=== PATIENT | male | born 1960 | race Caucasian/White ===

== ENCOUNTER → 2017-09-20 09:33 | Outpatient (CLI) | payer MEDICAID, SELFPAY ==
--- NOTE | 2017-09-20 09:37 | EKG12_ITS ---
Test Reason : PALPITATIONS Blood Pressure : / mmHG Vent. Rate : 062 BPM Atrial Rate : 062 BPM P-R Int : 156 ms QRS Dur : 092 ms QT Int : 434 ms P-R-T Axes : 033 040 079 degrees QTc Int : 440 ms Sinus rhythm with frequent Premature ventricular complexes Otherwise normal ECG Confirmed by AILYN WATSON ([id number]), content editor FAWN CERDA ([id number] on 09/23/2017 2:52:09 PM Referred By: [facility] Confirmed By:AILYN WATSON
== END ==
DX: R00.2 Palpitations (principal)
CPT/HCPCS: 93005

== ENCOUNTER 2018-08-25 10:48 | Emergency (ER) | payer MEDICAID, SELFPAY ==
[2018-08-25 10:49] VITALS: BP 128/69; PULSE 65; RESP 16; TEMP 36.9; O2SAT 99; BMI 27.9
--- NOTE | 2018-08-25 11:15 | ED.DCSUM_ITS ---
- ER Visit Summary Date of Service: 08/25/18 Chief Complaint: Back pain History of Present Illness: The patient is a 57 M with back pain since yesterday after helping someone into a car. It is worse when he moves especially when he bends he has sharp shooting pain left side of the back. No bowel or bladder compromise no urinary retention symptoms no other known injury. Physical Examination: Otherwise normal exam he has left paraspinal tenderness, worse with twisting and bending. He has equal 1+ patellar reflexes. Normal plantarflexion and dorsiflexion of both feet and great toes bilaterally. Neurologically intact otherwise. Negative straight leg test. Emergency Department Course and Treatment: Patient will be treated symptomatically he will follow-up with PCP Disposition: Discharge stable condition Impression: Back pain This note was generated with [employer] dictation software. It may contain incorrect words, spelling, and punctuation that were not noted in review of the chart prior to signing ED Disposition - Plan for ED Patient: Disposition: Home or Assisted Living Instructions: ED Low Back Pain Injury Prescriptions: Naproxen [Naprosyn] 500 mg PO BID PRN #20 tab Prednisone [Deltasone] 40 mg PO DAILY #8 tab Cyclobenzaprine [Flexeril] 10 mg PO TID PRN #20 tab PRN Reason: Muscle Spasm Referrals: Judy Russo [Primary Care Provider] - 3-5 Days
== END 2018-08-25 12:25 | disposition home or self-care (01) ==
LOC: ED 11:49
PROVIDERS: Emergency Provider Emergency Medicine
DX: M54.9 Dorsalgia, unspecified (principal); I10 Essential (primary) hypertension; E78.00 Pure hypercholesterolemia, unspecified; I25.10 Atherosclerotic heart disease of native coronary artery without angina pectoris
CPT/HCPCS: 99282

== ENCOUNTER 2019-01-13 14:56 | Emergency (ER) | payer MEDICAID, SELFPAY ==
[2019-01-13 14:58] VITALS: BP 154/86; PULSE 59; RESP 16; TEMP 36.9; O2SAT 100; BMI 27.9
[2019-01-13] MEDS: BACITRACIN 15 GM Tube 1 APPLIC TOPICAL (16:24)
--- NOTE | 2019-01-13 16:30 | ED.DCSUM_ITS ---
History of Present Illness Chief Complaint: Laceration Informant: Patient Onset: Today Context: Sudden Onset Narrative: She is a 58-year-old male with history of coronary artery disease and [place] presented with laceration to his right hand. Patient states he was removing tile from a\when he actually cut himself with the crowbar that he was using. He sustained a laceration between his first and second fingers. He denies any other complaints or injuries at this time. His last tetanus was in 2016. 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 Past Medical History - Allergies and Home Meds Allergies/Adverse Reactions: Allergies peanut Allergy (Verified 01/13/19 14:57) Anaphylaxis Primary Care Physician: Judy Russo [Primary Care Provider] - Smoking Status: Never smoker Review of Systems Skin: Reports: Wounds - right hand laceration Physical Exam Vital Signs/Narrative: Vital Signs Temp Pulse Resp BP Pulse Ox 01/13/19 14:58 98.4 F 59 L 16 154/86 H 100 Inital Vital Signs reviewed: Yes General: Well nourished, Well developed, No Acute Distress Head: Normocephalic, Atraumatic Eyes: Perrl, EOMI ENT: Moist mucous membranes, No rhinorrhea Neck: Supple, Nontender Cardiovascular: Regular rate, Regular rhythm, No murmurs Respiratory: No distress, CTA bilaterally, Chest nontender Abdomen: Soft, Nontender, Nondistended, Normal bowel sounds Back: Nontender, Normal Inspection Extremities: Nontender, No edema Skin: Normal color, Trauma - 2 cm linear laceration in the webspace between the right first and second digits, full-thickness, no foreign body visualized Neurological: Alert, Oriented x3, Cranial nerves II-XII grossly intact, Normal Strength, Normal Sensation Psychological: Normal affect, Normal Mood Diagnostic/Tx/Re-eval - Medical Decision Making Wooten has laceration to his right hand. Tetanus is up-to-date. No concern for foreign body at this time. Laceration repair performed. Patient started to follow-up with his PCP and in approximately 10 days for wound reevaluation and suture removal. Patient is counseled on signs and symptoms requiring return to the emergency room. Patient verbalizes agreement and understand this plan. Patient discharged home in stable and improved condition. Procedures - Lacerations No standard instances Length: 0.79 in Depth: Skin Shape: Linear Prep: Sterile Conditions, Chlorhexadine Laceration repair: Irrigated, Lidocaine with epi, Local, Skin sutures Irrigated (ml): 500 - running water x 5 min Number of Sutures/Trace: 4 Suture Information: Ethilon, 4-0 ED Disposition - Plan for ED Patient: Disposition: Home or Assisted Living Diagnosis: Laceration of right hand Instructions: LACERATION, Hand Referrals: Judy Russo [Primary Care Provider] - Additional Instructions: Try to keep the wound clean and dry. Apply bacitracin ointment to it. Follow- up in 10 days for suture removal and wound reevaluation. Return if you develop any signs of infection or worsening symptoms.
== END 2019-01-13 17:32 | disposition home or self-care (01) ==
PROVIDERS: Emergency Provider Emergency Medicine
DX: S61.411A Laceration without foreign body of right hand, initial encounter (principal); W26.8XXA Contact with other sharp object(s), not elsewhere classified, initial encounter; Y93.89 Activity, other specified; I25.10 Atherosclerotic heart disease of native coronary artery without angina pectoris; I25.2 Old myocardial infarction; Z79.82 Long term (current) use of aspirin; Z79.899 Other long term (current) drug therapy
CPT/HCPCS: 12001; 99283

== ENCOUNTER → 2019-09-10 | Outpatient (CLI) | payer MEDICAID, SELFPAY ==
--- NOTE | 2019-09-10 14:09 | RAD_ITS ---
STUDY: X-RAY - RIGHT WRIST REASON FOR EXAM: Wrist pain and immobility. TECHNIQUE: 3 view(s) of the wrist were obtained. COMPARISON: Radiographs of the right hand 04/06/2017. FINDINGS: Normal visualized distal radius and ulna. Normal radiocarpal articulation. Normal distal radioulnar articulation. There is a cyst in the mid scaphoid. There is irregularity of the dorsal aspect of the carpus as on the prior study, possibly from remote avulsive injury. There is severe joint space narrowing of the lunate-capitate articulation similar to the prior study. Normal carpometacarpal articulation of the thumb. Normal second through fifth carpometacarpal articulations. Normal visualized metacarpal bones. There are surgical clips at the palmar radial aspect of the distal radius. RAD/Wrist min 3 Views IMPRESSION: Arthrosis of the lunate-capitate articulation. Cyst in the scaphoid. Irregularity of the dorsal aspect of the carpus as on the prior study, possibly from remote avulsive injury. Electronically Signed: Rj Edmonds MD at 10:18 EDT Tel , Service support ,
== END | disposition home or self-care (01) ==
LOC: HPRAD 14:09
PROVIDERS: Referring Provider Orthopaedic Surgery; Visit Provider Orthopaedic Surgery
DX: M25.531 Pain in right wrist (principal)
CPT/HCPCS: 73110

== ENCOUNTER → 2019-09-25 08:29 | Outpatient (CLI) | payer MEDICAID, SELFPAY ==
[2019-09-25 08:25] VITALS: BMI 27.9
--- NOTE | 2019-09-25 08:29 | RAD_ITS ---
STUDY: X-RAY - LEFT SHOULDER REASON FOR EXAM: Male, 58 years old. PAIN IN LEFT SHOULDER. NO KNOWN RECENT INJURY PER PATIENT. TECHNIQUE: 3 view(s) of the shoulder. COMPARISON: None. FINDINGS: There is mild degenerative arthrosis of the glenohumeral articulation. There is degenerative arthrosis of the acromioclavicular joint without inferior osseous spur formation. Normal acromion. There are healed left rib fractures. There are sternotomy wires. Normal humeral head and visualized proximal humerus. The soft tissue structures are unremarkable. Normal visualized pulmonary apex. RAD/Shoulder min 2 Views IMPRESSION: Degenerative change. Electronically Signed: Lenin Antoine MD at 15:18 EDT , Service support ,
== END ==
PROVIDERS: Referring Provider Orthopaedic Surgery; Visit Provider Orthopaedic Surgery
DX: M25.512 Pain in left shoulder (principal)
CPT/HCPCS: 73030

== ENCOUNTER 2019-12-09 19:44 | Emergency (ER) | payer MEDICAID, SELFPAY ==
[2019-09-25 08:25] VITALS: BMI 27.9
[2019-12-09 19:45] VITALS: BP 154/100; PULSE 68; RESP 16; TEMP 35.7; O2SAT 100; BMI 26.2
--- NOTE | 2019-12-09 20:01 | CT_ITS ---
STUDY: CT ABDOMEN AND PELVIS WITHOUT CONTRAST REASON FOR EXAM: Male, 59 years old. LEFT FLANK PAIN. RADIATION DOSAGE (If Supplied By Facility): CTDIvol = ( 9.93 ) mGy, DLP = ( 491.35 ) mGycm TECHNIQUE: Transaxial images were obtained from the dome of the diaphragm to the symphysis pubis without oral contrast, and without intravenous contrast. Sagittal and coronal images were reconstructed. Individualized dose optimization techniques were used for this CT. COMPARISON: None. FINDINGS: The visualized lung bases are unremarkable. The visualized portions of the heart are within normal limits. Normal liver. There is a solitary gallstone. Normal spleen. Normal pancreas. Normal bilateral adrenal glands. Normal right kidney. 3 mm distal left ureter calculus with mild associated obstructive uropathy. 2 mm nonobstructing left upper pole stone. Normal visualized stomach. Normal small intestine. Normal colon. The appendix is visualized and appears normal. There is diffuse atherosclerotic calcification of the abdominal aorta, without a demonstrated aneurysm. Normal inferior vena cava. Normal retroperitoneum. Normal urinary bladder. Normal visualized prostate gland. Normal abdominal wall. Normal osseous structures. CT/Abdomen/Pelvis without Cont IMPRESSION: 3 mm distal left ureter calculus with mild associated obstructive uropathy. Electronically Signed: Deandre Craft, at 21:05 EDT Tel , Service support ,
--- NOTE | 2019-12-09 20:02 | ED.DCSUM_ITS ---
- ER Visit Summary Date of Service: 12/09/19 Chief Complaint: [Flank pain] History of Present Illness: The patient is a 59 M [presents to the emergency department complaint of left-sided flank pain that started 4 days ago. Patient states the pains been off and on. At times the pain was severe today which caused him to become diaphoretic. Currently states the pain is much improved and only rates it about 1 out of 10. He states the pain radiated to the lower abdomen and into his left testicle. Patient thinks he is try to pass a kidney stone. Patient denies urinary symptoms. He denies fever. Denies blood in his urine. Patient has history of coronary artery disease, and hypertension. No prior history of kidney stones.] Physical Examination: [HEENT-PERRLA, EOMI. Cranial nerves II through XII grossly intact. TMs clear. Mucous membranes moist. No adenopathy. Cardiovascular-regular rate and rhythm without murmur or ectopy Lungs-clear to auscultation, chest wall stable without crepitus or subcu emphysema Abdomen-normoactive bowel sounds, soft, nontender, no rebound or rigidity, no peritoneal signs. Back exam-patient has some mild CVA tenderness on the left. No tenderness over the thoracic or lumbar spine. Negative straight leg raises. Deep tendon reflexes are plus 2 out of 4 bilaterally at the patella Achilles. Patient has normal L5 extension bilaterally. Extremities-intact ?4, normal range of motion, normal pulses, atraumatic] Test Results: [CBC with differential was normal. Chemistries unremarkable. Urinalysis showed 0-5 RBCs without signs of infection. CT flank showed a 3 mm stone at the left distal ureter.] Emergency Department Course and Treatment: [ Established on arrival. Patient did not want a thing for pain.] Treatment Plan: [We will be given urine strainers as well as a prescription for Naprosyn and [place] as well as Zofran.] Patient will be given referral to urology for follow-up. Patient advised to return if worsening pain, fever, vom iting, or condition should worsen anyway. Disposition: [Discharged home in stable condition] Impression: [Kidney stone with colic.] This note was generated with [employer] dictation software. It may contain incorrect words, spelling, and punctuation that were not noted in review of the chart prior to signing ED Disposition - Plan for ED Patient: Referrals: [facility],Judy Farr [Primary Care Provider] -
[2019-12-09 20:16] LABS: Bacteria 0 SEEN /hpf (None Seen); Squamous Epithelial Cells - UA 0 SEEN /hpf (0-5); White Blood Cells 0 SEEN /hpf (0-5)
[2019-12-09 20:19] LABS: Absolute Lymphocyte Count 3.34 X10^3/uL (0.83-4.51); Absolute Neutrophil Count 3.6 X10^3/uL (2.0-7.7); Basophil# 0.06 X10^3/uL; Basophil% 0.7 % (0-1); Eosinophil# 0.18 X10^3/uL; Eosinophils% 2.1 % (0-5); Hematocrit 40.9 % (40-54); Hemoglobin 13.7 g/dL (13.0-16.5); Lymphocyte # 3.34 X10^3/ul (4.0); Lymphocyte % 39.8 % (19-41); Mean Corp Hgb Conc 33.5 g/dL (32-36); Mean Corpuscular Hgb 31.4 pg (27.0-32.0); Mean Corpuscular Volume 93.8 fL (80-94); Mean Platelet Vol. 10.1 fl (6.2-12.0); Monocyte# 1.23 X10^3/uL; Monocyte% 14.7 % (0-10); NRBC Flagged by Analyzer 0 % (0-5); Neutrophil # 3.56 X10^3/uL (2.7-7.7); Neutrophil % 42.5 % (47-70); Platelet Count 229 K/mm3 (150-450); RBC Distribution Width CV 12.7 % (11.6-14.6); RBC Distribution Width SD 43.5 fl (35.1-43.9); Red Blood Count 4.36 M/mm3 (4.6-6.2); White Blood Count 8.4 K/mm3 (4.4-11.0)
[2019-12-09 20:22] LABS: Color, Urine Yellow (Yellow); Glucose, Dipstick Normal (Normal); Ketone-Dipstick 5 mg/dl (Negative); Leukocyte Esterase-Dipstick Negative /ul (Negative); Nitrite-Dipstick Negative (Negative); Occult Blood-Urine 10 /ul (Negative); Protein-Dipstick Negative (Negative); Urine Bilirubin Dipstick Negative (Negative); Urine Clarity Clear (Clear); Urine Urobilinogen Normal (Normal)
[2019-12-09] MEDS: 0.9% Normal Saline 1,000 ML 125 ML IV (20:24)
[2019-12-09 20:30] LABS: Mucous, Urine 1+ /hpf (<or=2+); Red Blood Cells-Urine 0-5 SEEN /hpf (0-5)
[2019-12-09 20:39] LABS: Anion Gap 5 (5-15); BUN 18 mg/dL (7-18); BUN/Creat Ratio 18.6 RATIO (10-20); Chloride 106 mmol/L (98-107); Creatinine, Serum 0.97 mg/dL (0.70-1.30); EST Glomerular Filtration Rate 84 mL/min (>60); Est Glom Filt Rate - Afr Amer 102 mL/min (>60); Estimated Creatinine Clearance 83.62 ml/min; Glucose 87 mg/dL (74-106); Potassium 3.4 mmol/L (3.5-5.1); Sodium Level 143 mmol/L (136-145)
--- NOTE | 2019-12-09 21:26 | ED.DEP ---
ED Disposition - Plan for ED Patient: Instructions: ED Renal Stone w Colic Prescriptions: Naproxen [Naprosyn] 500 mg PO BID PRN #20 tab Prescription Printed Hydrocodone Bitart/Apap 5-325 [[place] 5MG-325MG] 1 tab PO Q4H PRN PRN 2 Days #14 tab PRN Reason: Pain Prescription Printed Ondansetron [Zofran Odt] 4 mg PO Q8H PRN PRN #10 tab PRN Reason: Nausea Prescription Printed Referrals: [facility],Judy Farr [Primary Care Provider] - Dion Orellana MD [STAFF PHYSICIAN] - 3-5 Days
== END 2019-12-09 21:40 | disposition home or self-care (01) ==
LOC: ED 20:19
PROVIDERS: Emergency Provider Emergency Medicine
DX: N20.0 Calculus of kidney (principal); I25.10 Atherosclerotic heart disease of native coronary artery without angina pectoris; I10 Essential (primary) hypertension; R61 Generalized hyperhidrosis
CPT/HCPCS: 74176; 80048; 81001; 85025; 96360; 96361; 99283; J7030; A4216

== ENCOUNTER 2019-12-22 07:38 | Emergency (ER) | payer MEDICAID, SELFPAY ==
[2019-12-22 07:39] VITALS: BP 155/91; PULSE 54; RESP 17; TEMP 36.7; O2SAT 99; BMI 26.5
--- NOTE | 2019-12-22 07:52 | RAD_ITS ---
STUDY: X-RAY - LEFT SHOULDER REASON FOR EXAM: Male, 59 years old. 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 TECHNIQUE: 4 view(s) of the shoulder. COMPARISON: Comparison is made with prior study dated 09/25/2019. FINDINGS: Normal glenohumeral articulation. Normal acromioclavicular joint. Normal acromion. Healed left rib fractures. Normal humeral head and visualized proximal humerus. The soft tissue structures are unremarkable. Normal visualized pulmonary apex. RAD/Shoulder min 2 Views IMPRESSION: Normal x-ray examination of the shoulder. Electronically Signed: Mc Ashton, at 8:20 EDT , Service support ,
--- NOTE | 2019-12-22 07:52 | ED.DCSUM_ITS ---
History of Present Illness Chief Complaint: Fall Informant: Patient Onset: Today Narrative: Patient states that he tripped and fell landing directly onto the left shoulder. He notes grinding and popping when he attempts to move it. Is any other injuries. Denies striking his head. He is right-handed. Past Medical History - Allergies and Home Meds Allergies/Adverse Reactions: Allergies peanut Allergy (Verified 12/22/19 07:38) Anaphylaxis Primary Care Physician: [facility],Judy Farr [Primary Care Provider] - 10-14 Days if not better Prior records reviewed: Yes Past Medical History: - - Hypertension hypercholesterolemia Surgical History: noncontributory Smoking Status: Former smoker Review of Systems General: Denies: Chills, Fever, Sweats Eyes: Denies: Visual changes - bilaterally, Diplopia ENT: Denies: Rhinorrhea, Sore throat Cardiovascular: Denies: Chest pain, Palpitations Respiratory: Denies: Dyspnea, Cough, Dyspnea on exertion Gastrointestinal: Denies: Abdominal pain, Nausea, Vomiting, Diarrhea, Melena, Hematochezia Genitourinary: Denies: Dysuria, Hematuria, Frequency Musculoskeletal: Reports: Extremity Pain. Denies: Back pain Skin: Denies: Rash, Wounds Neurological: Denies: Headache, Weakness, Numbness Physical Exam Vital Signs/Narrative: Vital Signs Temp Pulse Resp BP Pulse Ox 12/22/19 07:39 98.0 F 54 L 17 155/91 H 99 Inital Vital Signs reviewed: Yes General: Well nourished, Well developed, No Acute Distress Head: Normocephalic, Atraumatic Eyes: Perrl, EOMI ENT: Moist mucous membranes, No rhinorrhea Neck: Supple, Nontender Cardiovascular: Regular rate, Regular rhythm, No murmurs Respiratory: No distress, CTA bilaterally, Chest nontender Abdomen: Soft, Nontender, Nondistended, Normal bowel sounds Back: Nontender, Normal Inspection Extremities: No edema, Tenderness - Tenderness palpation with limited range of motion of the left proximal humerus. Clavicle is normal. No tenderness at the AC. Skin: Normal color, No rash Neurological: Alert, Oriented x3, Cranial nerves II-XII grossly intact, Normal Strength, Normal Sensation Psychological: Normal affect, Normal Mood Diagnostic/Tx/Re-eval Clinical Impression(s) from Imaging Studies Shoulder X-Ray 12/22/19 07:52 IMPRESSION: Normal x-ray examination of the shoulder. Electronically Signed: Mc Ashton, at 8:20 EDT , Service support , - Medical Decision Making Shoulder films were negative for fracture. Patient be discharged home with supportive care. Has seen Dr. Benjamin from orthopedics for the left shoulder. He has some hydrocodone from a kidney stone a few days ago. I would recommend anti-inflammatories. Following up with orthopedics or primary care if not improving ED Disposition - Plan for ED Patient: Disposition: Home or Assisted Living Diagnosis: Shoulder contusion Instructions: ED EXTREMITY CONTUSION Upper, ED Shoulder Sprain Referrals: [facility],Judy Farr [Primary Care Provider] - 10-14 Days if not better
== END 2019-12-22 08:59 | disposition home or self-care (01) ==
PROVIDERS: Emergency Provider Emergency Medicine
DX: S40.012A Contusion of left shoulder, initial encounter (principal); W01.0XXA Fall on same level from slipping, tripping and stumbling without subsequent striking against object, initial encounter; E78.00 Pure hypercholesterolemia, unspecified; I10 Essential (primary) hypertension
CPT/HCPCS: 73030; 99282

== ENCOUNTER → 2020-01-14 06:35 | Outpatient (CLI) | payer MEDICAID, SELFPAY ==
[2019-12-31 15:16] VITALS: BMI 26.5
--- NOTE | 2020-01-14 06:36 | MRI_ITS ---
STUDY: MRI LEFT SHOULDER REASON FOR EXAM: Left shoulder pain and limited range of motion after left shoulder injury from a fall on 12/22/2019. TECHNIQUE: Standardized fat and water weighted pulse sequences were obtained in all 3 orthogonal planes. COMPARISON: Radiographs 12/22/2027 and 12/31/2019. FINDINGS: There is a full-thickness tear of the supraspinatus tendon retracted approximately 4.4 cm to the level of the glenohumeral joint (T2 coronal images 7-12). There is mild infraspinatus tendinosis (T2 coronal image 14) without discrete tendon tear. There is a full-thickness tear of the subscapularis tendon with medial dislocation of the long biceps tendon (proton-density axial images 10-15). Normal teres minor tendon. There is mild atrophy with mild partial fat replacement of the supraspinatus muscle (T2 axial image 7). There is mild atrophy with mild partial fat replacement of the infraspinatus muscle (T2 axial image 9). There is mild atrophy with mild partial fat replacement of the subscapularis muscle (T2 axial image 15). Normal teres minor muscle. There is a glenohumeral joint effusion. There is superior migration of the humeral head secondary to the retracted rotator cuff tear. There is a bone contusion of the superior aspect of the humeral head (T2 coronal images 10-13). Normal biceps labral complex. Normal labrum. Normal capsulo- ligamentous complex. There is mild acromioclavicular acromioclavicular arthrosis with mild hypertrophic changes (T2 sagittal image 6). There is an os acromiale (T2 axial image 3). There is a Type II morphology (curved), with a neutral orientation. There is a small volume of subacromial-subdeltoid bursal fluid. Normal visualized coracohumeral and coracoacromial ligaments. Normal deltoid muscle. Normal trapezius muscle. MRI/Upper Ext Joint Only(Routine) IMPRESSION: Full-thickness tear of the supraspinatus tendon. Full-thickness tear of the subscapularis tendon with medial dislocation of the long biceps tendon. Mild infraspinatus tendinosis. Mild atrophy of the supraspinatus, infraspinatus and subscapularis muscles. Bone contusion of the humeral head. Mild acromioclavicular arthrosis. Os acromiale. Glenohumeral joint fluid communicating with the subacromial-subdeltoid bursa. Electronically Signed: Rj Edmonds MD at 8:52 EDT Tel , Service support ,
== END ==
PROVIDERS: Referring Provider Orthopaedic Surgery; Visit Provider Orthopaedic Surgery
DX: M75.82 Other shoulder lesions, left shoulder (principal); S49.92XA Unspecified injury of left shoulder and upper arm, initial encounter
CPT/HCPCS: 73221

== ENCOUNTER → 2020-04-22 06:03 | Outpatient (CLI) | payer MEDICAID, SELFPAY ==
[2020-04-22 08:00] LABS: Cholesterol 95 mg/dL (200); High Density Lipoprotein 46 mg/dL; Triglycerides 66 mg/dL; Very Low Density Lipoprotein 13 mg/dL (5-40)
== END ==
DX: E78.5 Hyperlipidemia, unspecified (principal); E55.9 Vitamin D deficiency, unspecified; I25.10 Atherosclerotic heart disease of native coronary artery without angina pectoris
CPT/HCPCS: 36415; 80061; 82306

== ENCOUNTER → 2020-05-12 10:46 | Outpatient (CLI) | payer MEDICAID, SELFPAY ==
[2020-05-12 11:43] LABS: PSA,Total - Annual Screen 0.91 ng/mL (0.00-4.00)
== END ==
PROVIDERS: Referring Provider Nurse Practitioner Adult Health; Visit Provider Nurse Practitioner Adult Health
DX: Z12.5 Encounter for screening for malignant neoplasm of prostate (principal)
CPT/HCPCS: 36415; 84153; 97164; G0103

== ENCOUNTER 2020-06-15 14:00 | Outpatient (RCR) | payer MEDICAID, SELFPAY ==
--- NOTE | 2020-05-12 10:28 | HP.PTREVAL ---
TRICE MCELROY, It has been my pleasure to treat SANDRA DARNELL over the last 9 visits for Reverse Total Shoulder 03/04/2020 Left. Please see the progress note below for an update on the physical therapy plan of care! Subjective: Pt reports shoulder has been feeling good, it is achey. Pt still has stiffness and is unable to reach over head but is able reach. anything overhead 10, 70% with movement not above head. not ready to go back to work. still sleeps in recliner, but thinks he can sleep in bed but moves too much. Pt reports that he is still have sensation problems in the hand- touching feels rough and bumpy Objective/Function: Posture: FH, Rs- increased guarding of the left UE- no sling. Gait: no deviations note in LE- no guarding of the left UE with remains decreased arm swing. Palpation: feels it along infrapsinatus. ROM: Fingers: dexterity was good, Wrist: WFL, Elbow: WFL, Shoulder: AROM: flex 90 abd: 75 ER: 15 IR: WFL PROM: grossly scap 115. Strength: shoulder at 90 flex, Elbow: 4/5 with isometric, Wrist: 4+/5, Winding Operator strength: L 50,65 R 65,65 Plan Plan: Reverse Total Shoulder 03/04/2020 follow protcol in folder. Week 10 (Phase II per protocol) ends 05/12/20 Cont current til then. 05/12: begin phase IV: continue to improve ROM thrugh PROM and AAROM until full range is achieve then begin AROM,gentle ER isometrics, ST stabilization and alteranting isometrics in supine, no shoulder IR, crossbody, ext, or add Goals Goal 1:: Patient will be I with HEP and progression Goal Time Frame: 4-6 Weeks Goal Progress: Progressing Goal 2:: Patient will demo full AROM of the left shoulder as per protcol. Goal Time Frame: 4-6 Weeks Goal Progress: Progressing Goal 3:: Patient will maintain proper posture t/o tx session to demo increased scap s/s. Goal Time Frame: 4-6 Weeks Goal Progress: Progressing Goal 4:: Patient will be able to cone stack to a higher shelf for 3 minutes Goal Time Frame: 4-6 Weeks Goal Progress: Progressing Anticipated Interventions Patient/Client Instruction: Educate patient on: Benefits of Fitness Program Therapeutic Exercise to Include: Strength training, Endurance training, Coordination, Agility training, Body mechanics, Postural training, Neuromotor development, Passive ROM, Active ROM, Dynamic Lumbar Stabilization, Scapular Strength/Stabilization For the Purpose of:: To improve muscle performance and motor function TENS: Yes Cryotherapy (ice pack, ice massage): Yes Thermo therapy (hot pack): Yes Ultrasound (thermal/non thermal): No For the Purpose of:: To decrease pain Please do not hesitate to contact me at [phone] by phone or if you have questions or concerns regarding this new plan of care! Sincerely, KIANA CrookT
--- NOTE | 2020-06-20 08:45 | HP.PTDCSUM ---
It has been my pleasure to treat SANDRA DARNELL referred by TRICE MCELROY, with the diagnosis of Reverse Total Shoulder 03/04/2020 Left for a total of 18 visit(s). Discharge Date: Please see the following information for a summary of their discharge status. Subjective: Pt reports the exercises are going well. Pt reports that has been able to varying band resistances. Pt reports that he is more mindful to position arm on arm rest. % Improvement: 90 Objective/Function: Posture: FH, RS. Gait: no deviations note in LE- no guarding of the left UE with remains decreased arm swing. Palpation: feels it along infrapsinatus. ROM: Fingers: dexterity was good, Wrist: WFL, Elbow: WFL, Shoulder: AROM: flex 115 abd: 95 ER: 28 IR: WFL. Strength: shoulder flex: 4-/5, abd: 4/5 IR: 4/5 ER: 4-/5 with pain , elbow: 5/5,. Pt education given to perform interventions what is tolerated and work up to increased repetitions. Goal 1:: Patient will be I with HEP and progression Goal Progress: Goal Met Goal 2:: Patient will demo full AROM of the left shoulder as per protcol. Goal Progress: Progressing Goal 3:: Patient will maintain proper posture t/o tx session to demo increased scap s/s. Goal Progress: Progressing Goal 4:: Patient will be able to cone stack to a higher shelf for 3 minutes Goal Progress: Progressing Plan: Pt to be d/c with I HEP, encouraged to contact with questions and concerns If there are questions or concerns regarding this patient's physical therapy, please feel free to call me at [phone]. Thank you for the referral of this patient. Sincerely, Smiley Santacruz DPT
== END 2020-06-15 19:00 | disposition home or self-care (01) ==
LOC: PT 14:00
DX: Z96.612 Presence of left artificial shoulder joint (principal)
CPT/HCPCS: 97110; 97140; 97162; 97164

== ENCOUNTER → 2020-07-08 08:26 | Outpatient (CLI) | payer MEDICAID, SELFPAY ==
[2020-07-08 09:12] LABS: ALB/GLOB Ratio 0.9 RATIO (0.9-2.4); AST(SGOT) 23 U/L (15-37); Alanine Aminotransfer ALT/SGPT 32 U/L (16-61); Albumin, Serum 3.6 g/dL (3.2-5.0); Alkaline Phosphatase 103 U/L (45-117); Anion Gap 3 (5-15); BUN 17 mg/dL (7-18); BUN/Creat Ratio 18.9 RATIO (10-20); Chloride 102 mmol/L (98-107); EST Glomerular Filtration Rate 91 mL/min (>60); Est Glom Filt Rate - Afr Amer 111 mL/min (>60); Globulin 4.1 g/dL (2.2-4.2); Glucose 97 mg/dL (74-106); Protein, Total 7.7 g/dL (6.4-8.2); Sodium Level 137 mmol/L (136-145)
== END ==
DX: I10 Essential (primary) hypertension (principal); E78.5 Hyperlipidemia, unspecified
CPT/HCPCS: 36415; 80053

== ENCOUNTER 2020-08-14 04:01 | Emergency (ER) | payer MEDICAID, SELFPAY ==
[2020-08-14 04:02] VITALS: BP 167/83; PULSE 62; RESP 16; TEMP 36.5; O2SAT 99; BMI 29.2
--- NOTE | 2020-08-14 04:10 | EKG12_ITS ---
Test Reason : FLANK PAIN Blood Pressure : / mmHG Vent. Rate : 063 BPM Atrial Rate : 063 BPM P-R Int : 168 ms QRS Dur : 094 ms QT Int : 388 ms P-R-T Axes : 029 033 092 degrees QTc Int : 397 ms Normal sinus rhythm Normal ECG Confirmed by FLORA ARMIJO, DALLAS ([id number]), market editor PASCUAL VILLANUEVA ([id number]) on 08/16/2020 9:24:56 AM Referred By: TREY Confirmed By:DALLAS HINES MD
--- NOTE | 2020-08-14 04:12 | EX.ED.DYSGE1 ---
HPI History of Present Illness Chief Complaint: Flank Pain Narrative Narrative: Patient stated 2 hours ago he awoke with epigastric abdominal deep aching. Feels it through to his back. Is never had this before. No history of gallbladder or pancreas problems. He is not a drinker of alcohol. History of four-vessel cardiac bypass in the past. He does have cardiac stents as well. Denies any chest pain or shortness of breath. Remote kidney stone but does not feel the same. No home treatment. No nausea vomiting or diarrhea. Current severity is mild. It was moderate to severe at home. It does come down significantly. PFSH PFSH Medical History Chest pain Coronary artery disease GERD (gastroesophageal reflux disease) Heart disease History of heart attack HTN (hypertension) Kidney stones Myocardial infarct Smoker Home Medications aspirin 81 mg PO DAILY@0800 01/02/16 [History Last Taken Unknown] metoprolol tartrate 50 mg PO QHS 01/02/16 [History Last Taken Unknown] pravastatin 80 mg PO QHS 01/02/16 [History Last Taken Unknown] coenzyme Q10 75 mg capsule 75 mg PO DAILY 09/10/19 [History Last Taken Unknown] evolocumab 140 mg/mL subcutaneous syringe 140 mg SC Q2W 09/10/19 [History Last Taken Unknown] ezetimibe 10 mg tablet 10 tab PO DAILY 09/10/19 [History Last Taken Unknown] ergocalciferol (vitamin D2) 5,000 unit PO QWEEK 12/09/19 [History Last Taken Unknown] metoprolol tartrate 75 mg PO BREAKFAST 12/09/19 [History Last Taken Unknown] omeprazole 20 mg PO DAILY 08/14/20 [History Last Taken Unknown] Allergy/AdvReac Type Severity Reaction Status Date / Time peanut Allergy Anaphylaxis Verified 06/28/20 08:56 Surgical History History of quadruple bypass Hx of CABG Hx of heart artery stent Social History Smoking Status: Former smoker ROS ROS ED ROS Narrative ROS General: Denies fever, chills, sweats Eyes: Denies visual changes, blurred vision, double vision ENT: Denies ear pain, rhinorrhea, sore throat Cardiovascular: Denies chest pain, palpitations, heart racing Respiratory: Denies dyspnea, cough, sputum, dyspnea on exertion, orthopnea,PND GI: See HPI : Denies dysuria, hematuria, frequency Musculoskeletal: Denies myalgias, arthralgias, neck pain, see HPI Skin: Denies rash, abscess, abrasions Neuro: Denies headache, weakness, paresthesia Psych: Denies depression, anxiety Endo: Denies polyuria, polydipsia, polyphagia Heme: Denies easy bruising, easy bleeding, lymphadenopathy Allergy: Denies hives, swelling EXAM Physical Exam Narrative Exam Narrative: Vital signs reviewed General: Well-nourished well-developed Head: Normocephalic atraumatic Eyes: Pupils equal round and reactive to light extraocular movements intact ENT: TMs clear no hemotympanum no trauma Neck: Nontender full range of motion Cardiovascular: Regular rate rhythm no murmurs normal S1-S2 Respiratory: No distress clear to auscultation bilaterally chest nontender Abdomen: Soft nontender nondistended normal bowel sounds no masses Back: Nontender no CVA tenderness Extremities: Nontender active range of motion ?4 extremities no trauma Skin: Normal color no trauma Neuro alert oriented cranial nerves II through XII intact normal strength sensation reflexes Const Vital Signs: 08/14/20 04:02 Temperature 97.7 F L Temperature Source Oral Pulse Rate 62 Respiratory Rate 16 Blood Pressure 167/83 H Blood Pressure Mean 111 Pulse Ox 99 Oxygen Delivery Method Room Air MDM MDM MDM Narrative Medical decision making narrative: Patient given IV fluids and Toradol. Lab work obtained. Lab work shows nothing acute including CBC BMP liver function tests and lipase. EKG shows sinus rhythm at a rate of 63. No acute STEMI. Troponin test negative. On reevaluation symptoms have resolved. He is resting comfortably. Have a low suspicion for aortic dissection. I do not feel he needs acute imaging. This may have been a gas bubble that was trapped in the past. Nonetheless I feel he can follow-up as an outpatient return if he worsens Lab Data Labs: Laboratory Results - last 24 hr 08/14/20 08/14/20 04:10 04:10 WBC 7.3 RBC 4.53 L Hgb 13.0 Hct 40.4 MCV 89.2 MCH 28.7 MCHC 32.2 RDW Std Deviation 44.1 H RDW Coeff of Bull 13.7 Plt Count 225 MPV 10.2 Immature Gran % (Auto) 0.300 Neut % (Auto) 46.5 L Lymph % (Auto) 35.3 [place] % (Auto) 14.6 H Eos % (Auto) 2.6 Baso % (Auto) 0.7 Absolute Neuts (auto) 3.4 Absolute Lymphs (auto) 2.59 Nucleated RBC % 0 Sodium 139 Potassium 3.7 Chloride 103 Carbon Dioxide 29.0 Anion Gap 7 BUN 15 Creatinine 0.88 Estim Creat Clear Calc 92.17 Est GFR (MDRD) Af Amer 114 Est GFR (MDRD) Non-Af 94 BUN/Creatinine Ratio 17.1 Glucose 115 H Calcium 8.8 Total Bilirubin 0.30 AST 21 ALT 29 Alkaline Phosphatase 112 Troponin I < 0.015 Total Protein 7.5 Albumin 3.5 Globulin 4.0 Albumin/Globulin Ratio 0.9 Lipase 126 Discharge Plan Triage Chief Complaint: Flank Pain ED Provider: Keyur Burleson Dx/Rx/DC Orders Clinical Impression: Abdominal pain, acute, epigastric Prescriptions: No Action Repatha Syringe 140 mg/mL syringe 140 mg SC Q2W RF: 0 ezetimibe 10 mg tablet 10 tab PO DAILY RF: 0 Ultra CoQ10 75 mg capsule 75 mg PO DAILY RF: 0 aspirin 81 MG tablet,chewable 81 mg PO DAILY@0800 RF: 0 metoprolol tartrate 25 MG tablet 50 mg PO QHS RF: 0 pravastatin 20 MG tablet 80 mg PO QHS RF: 0 ergocalciferol (vitamin D2) 1,250 mcg (50,000 unit) capsule 5,000 unit PO QWEEK RF: 0 metoprolol tartrate 75 MG tablet 75 mg PO BREAKFAST RF: 0 omeprazole 20 mg Capsule,Delayed Release(Dr/Ec) 20 mg PO DAILY RF: 0 Primary Care Provider: Cindi Oliver Referrals: Cindi Oliver, [facility] [Primary Care Provider] - Disposition Disposition: Home, self care
[2020-08-14 04:18] LABS: Absolute Lymphocyte Count 2.59 X10^3/uL (0.83-4.51); Absolute Neutrophil Count 3.4 X10^3/uL (2.0-7.7); Basophil# 0.05 X10^3/uL; Basophil% 0.7 % (0-1); Eosinophil# 0.19 X10^3/uL; Eosinophils% 2.6 % (0-5); Hematocrit 40.4 % (40-54); Lymphocyte # 2.59 X10^3/ul (0.83-4.51); Lymphocyte % 35.3 % (19-41); Mean Corp Hgb Conc 32.2 g/dL (32-36); Mean Corpuscular Hgb 28.7 pg (27.0-32.0); Mean Corpuscular Volume 89.2 fL (80-94); Mean Platelet Vol. 10.2 fl (6.2-12.0); Monocyte# 1.07 X10^3/uL; Monocyte% 14.6 % (0-10); NRBC Flagged by Analyzer 0 % (0-5); Neutrophil # 3.42 X10^3/uL (2.7-7.7); Neutrophil % 46.5 % (47-70); Platelet Count 225 K/mm3 (150-450); RBC Distribution Width CV 13.7 % (11.6-14.6); RBC Distribution Width SD 44.1 fl (35.1-43.9); Red Blood Count 4.53 M/mm3 (4.6-6.2); White Blood Count 7.3 K/mm3 (4.4-11.0)
[2020-08-14] MEDS: Ketorolac 15 MG/ML Vial IV (04:20)
[2020-08-14 04:37] LABS: ALB/GLOB Ratio 0.9 RATIO (0.9-2.4); AST(SGOT) 21 U/L (15-37); Alanine Aminotransfer ALT/SGPT 29 U/L (16-61); Albumin, Serum 3.5 g/dL (3.2-5.0); Alkaline Phosphatase 112 U/L (45-117); Anion Gap 7 (5-15); BUN 15 mg/dL (7-18); BUN/Creat Ratio 17.1 RATIO (10-20); Calcium,Total 8.8 mg/dL (8.5-10.1); Chloride 103 mmol/L (98-107); Creatinine, Serum 0.88 mg/dL (0.70-1.30); EST Glomerular Filtration Rate 94 mL/min (>60); Est Glom Filt Rate - Afr Amer 114 mL/min (>60); Estimated Creatinine Clearance 92.17 ml/min; Glucose 115 mg/dL (74-106); Lipase 126 U/L (73-393); Potassium 3.7 mmol/L (3.5-5.1); Protein, Total 7.5 g/dL (6.4-8.2); Sodium Level 139 mmol/L (136-145)
== END 2020-08-14 05:34 | disposition home or self-care (01) ==
PROVIDERS: Emergency Provider Emergency Medicine; PCP Nurse Practitioner Adult Health
DX: R10.13 Epigastric pain (principal); Z95.1 Presence of aortocoronary bypass graft; Z87.891 Personal history of nicotine dependence; I25.10 Atherosclerotic heart disease of native coronary artery without angina pectoris; I25.2 Old myocardial infarction; I10 Essential (primary) hypertension; K21.9 Gastro-esophageal reflux disease without esophagitis; Z87.442 Personal history of urinary calculi; Z79.82 Long term (current) use of aspirin; Z95.5 Presence of coronary angioplasty implant and graft; Z79.899 Other long term (current) drug therapy
CPT/HCPCS: 80053; 83690; 84484; 85025; 93005; 96374; 99283

== ENCOUNTER → 2021-01-27 06:07 | Outpatient (CLI) | payer MEDICAID, SELFPAY ==
[2021-01-27 07:54] LABS: Absolute Lymphocyte Count 2.05 X10^3/uL (0.83-4.51); Absolute Neutrophil Count 2.2 X10^3/uL (2.0-7.7); Basophil# 0.07 X10^3/uL; Basophil% 1.3 % (0-1); Eosinophil# 0.25 X10^3/uL; Eosinophils% 4.5 % (0-5); Hematocrit 40.6 % (40-54); Hemoglobin 12.7 g/dL (13.0-16.5); Lymphocyte # 2.05 X10^3/ul (0.83-4.51); Lymphocyte % 36.8 % (19-41); Mean Corp Hgb Conc 31.3 g/dL (32-36); Mean Corpuscular Volume 89.4 fL (80-94); Mean Platelet Vol. 10.5 fl (6.2-12.0); Monocyte# 0.94 X10^3/uL; Monocyte% 16.9 % (0-10); NRBC Flagged by Analyzer 0 % (0-5); Neutrophil # 2.24 X10^3/uL (2.7-7.7); Neutrophil % 40.1 % (47-70); Platelet Count 262 K/mm3 (150-450); RBC Distribution Width CV 13.4 % (11.6-14.6); RBC Distribution Width SD 43.6 fl (35.1-43.9); Red Blood Count 4.54 M/mm3 (4.6-6.2); White Blood Count 5.6 K/mm3 (4.4-11.0)
[2021-01-27 08:24] LABS: ALB/GLOB Ratio 0.8 RATIO (0.9-2.4); AST(SGOT) 23 U/L (15-37); Alanine Aminotransfer ALT/SGPT 28 U/L (16-61); Albumin, Serum 3.4 g/dL (3.2-5.0); Alkaline Phosphatase 103 U/L (45-117); Anion Gap 5 (5-15); BUN 20 mg/dL (7-18); BUN/Creat Ratio 24.5 RATIO (10-20); Calcium,Total 8.9 mg/dL (8.5-10.1); Chloride 106 mmol/L (98-107); Cholesterol 90 mg/dL (200); Creatinine, Serum 0.82 mg/dL (0.70-1.30); EST Glomerular Filtration Rate 102 mL/min (>60); Est Glom Filt Rate - Afr Amer 124 mL/min (>60); Globulin 4.2 g/dL (2.2-4.2); Glucose 94 mg/dL (74-106); High Density Lipoprotein 42 mg/dL; Potassium 3.9 mmol/L (3.5-5.1); Protein, Total 7.6 g/dL (6.4-8.2); Sodium Level 140 mmol/L (136-145); Triglycerides 43 mg/dL; Very Low Density Lipoprotein 9 mg/dL (5-40)
== END ==
DX: I10 Essential (primary) hypertension (principal); E78.5 Hyperlipidemia, unspecified
CPT/HCPCS: 36415; 80053; 80061; 85025

== ENCOUNTER → 2021-02-03 15:19 | Outpatient (CLI) | payer MEDICAID, SELFPAY ==
[2021-02-03 16:25] LABS: Vitamin B12 438 pg/mL (211-911)
[2021-02-03 16:28] LABS: Ferritin 77 ng/mL (26-388); Iron 71 ug/dL (65-175); Iron Binding Capacity,Total 304 ug/dL (250-450)
== END ==
PROVIDERS: Visit Provider Nurse Practitioner Adult Health
DX: D64.9 Anemia, unspecified (principal)
CPT/HCPCS: 36415; 82607; 82728; 83540; 83550

== ENCOUNTER 2021-05-12 13:21 | Outpatient (CLI) | payer MEDICAID, SELFPAY ==
[2021-05-12 14:41] LABS: Absolute Lymphocyte Count 2.06 X10^3/uL (0.83-4.51); Absolute Neutrophil Count 4.7 X10^3/uL (2.0-7.7); Basophil# 0.04 X10^3/uL; Basophil% 0.5 % (0-1); Eosinophils% 2.5 % (0-5); Hematocrit 38.3 % (40-54); Hemoglobin 12.6 g/dL (13.0-16.5); Lymphocyte # 2.06 X10^3/ul (0.83-4.51); Mean Corp Hgb Conc 32.9 g/dL (32-36); Mean Corpuscular Hgb 28.7 pg (27.0-32.0); Mean Corpuscular Volume 87.2 fL (80-94); Mean Platelet Vol. 10.8 fl (6.2-12.0); Monocyte# 0.89 X10^3/uL; Monocyte% 11.3 % (0-10); NRBC Flagged by Analyzer 0 % (0-5); Neutrophil % 59.4 % (47-70); Platelet Count 253 K/mm3 (150-450); RBC Distribution Width CV 13.2 % (11.6-14.6); Red Blood Count 4.39 M/mm3 (4.6-6.2); White Blood Count 7.9 K/mm3 (4.4-11.0)
== END 2021-05-12 23:59 | disposition home or self-care (01) ==
LOC: LAB 13:24
PROVIDERS: Visit Provider Nurse Practitioner Adult Health
DX: I10 Essential (primary) hypertension (principal); Z12.5 Encounter for screening for malignant neoplasm of prostate
CPT/HCPCS: 84153; 36415; 85025; G0103

== ENCOUNTER 2021-05-15 10:58 | Emergency (ER) | payer MEDICAID, SELFPAY ==
[2021-05-15 10:59] VITALS: BP 151/66; PULSE 54; RESP 16; TEMP 36.4; O2SAT 100; BMI 29.8
[2021-05-15 12:00] VITALS: BP 151/83; PULSE 60; RESP 16; TEMP 36.3; O2SAT 99
--- NOTE | 2021-05-15 12:08 | CT_ITS ---
STUDY: CT ABDOMEN AND PELVIS WITHOUT CONTRAST REASON FOR EXAM: Male, 60 years old. Left flank pain. History of kidney stones. RADIATION DOSAGE (If Supplied By Facility): CTDIvol = ( 12.94 ) mGy, DLP = ( 685.34 ) mGycm TECHNIQUE: Transaxial images were obtained from the dome of the diaphragm to the symphysis pubis without oral contrast, and without intravenous contrast. Sagittal and coronal images were reconstructed. Individualized dose optimization techniques were used for this CT. COMPARISON: Comparison is made with prior study dated 12/09/2019. FINDINGS: The visualized lung bases are unremarkable. Coronary artery calcification. Normal liver. There are multiple small gallstones. Normal spleen. Normal pancreas. Normal bilateral adrenal glands. Normal right kidney. Mild degree of left hydronephrosis and left hydroureter. No obstructive uropathy is seen at this time. Mild degree of left perinephric stranding. Punctate calculus in the lower pole calyx of the left kidney. There is a small hiatal hernia. Normal small intestine. Normal colon. The appendix is visualized and appears normal. There is diffuse atherosclerotic calcification of the abdominal aorta and its major visceral branches, without a demonstrated aneurysm. Normal inferior vena cava. Normal retroperitoneum. Normal urinary bladder. Normal abdominal wall. There are mild degenerative changes of the visualized lumbar spine. CT/Abdomen/Pelvis without Cont IMPRESSION: Mild degree of left hydronephrosis and left hydroureter. No obstructive uropathy is seen at this time. Findings are suggestive of recently passed calculus. Multiple small gallstones. Electronically Signed: Mc Ashton MD at 12:57 EST ,
--- NOTE | 2021-05-15 12:13 | EX.ED.DYSGE1 ---
HPI History of Present Illness Chief Complaint: Flank Pain Onset/Context/Timing Onset: Yesterday Context: Gradual Onset Timing: Continuous Quality: Sharp Location: Left flank Worsened by: Nothing Relieved by: Nothing Narrative Narrative: Patient presents with left flank pain that began last night. Patient states it began as a dull ache last night. Patient states it became worse this morning. Patient states this feels similar to prior kidney stones. Patient states that the pain waxes and wanes but is constant. Patient denies any dysuria or hematuria. Patient admits to nausea but denies any vomiting. Patient states nothing makes his pain better nothing makes it worse. Patient states his pain does radiate into his left testicle at times. PFSH PFSH Medical History Chest pain Coronary artery disease GERD (gastroesophageal reflux disease) Heart disease History of heart attack HTN (hypertension) Kidney stones Myocardial infarct Smoker Home Medications aspirin 81 mg PO DAILY@0800 01/02/16 [History Last Taken Unknown] metoprolol tartrate 50 mg PO QHS 01/02/16 [History Last Taken Unknown] pravastatin 80 mg PO QHS 01/02/16 [History Last Taken Unknown] coenzyme Q10 75 mg capsule 75 mg PO DAILY 09/10/19 [History Last Taken Unknown] evolocumab 140 mg/mL subcutaneous syringe 140 mg SC Q2W 09/10/19 [History Last Taken Unknown] ezetimibe 10 mg tablet 10 tab PO DAILY 09/10/19 [History Last Taken Unknown] ergocalciferol (vitamin D2) 5,000 unit PO QWEEK 12/09/19 [History Last Taken Unknown] metoprolol tartrate 75 mg PO BREAKFAST 12/09/19 [History Last Taken Unknown] omeprazole 20 mg PO DAILY 08/14/20 [History Last Taken Unknown] hydrocodone-acetaminophen 1 tab PO Q6H PRN PRN 3 Days #10 tablet 05/15/21 [Rx Last Taken Unknown] Allergy/AdvReac Type Severity Reaction Status Date / Time peanut Allergy Anaphylaxis Verified 05/15/21 11:00 Surgical History History of quadruple bypass Hx of CABG Hx of heart artery stent Social History Smoking Status: Former smoker ROS ROS ED Constitutional Constitutional ED: Reports chills and subjective; Denies fever(s) Eyes Eyes: Denies blurry vision or change in vision ENT ENT ED: Denies rhinorrhea or sore throat Cardiovascular Cardiovascular: Denies chest pain or palpitations Respiratory/Chest Respiratory/Chest: Denies cough or dyspnea Gastrointestinal Gastrointestinal: Reports nausea; Denies vomiting Genitourinary Genitourinary ED: Denies dysuria or hematuria Musculoskeletal Musculoskeletal: Reports back pain; Denies neck pain Integumentary Denies abscess or rash Neurologic Neurologic: Denies headache(s) or weakness Allergic/Immunologic Allergic/Immunologic ED: Denies mouth swelling or urticaria EXAM Physical Exam Const Vital Signs: 05/15/21 10:59 05/15/21 12:00 05/15/21 12:58 Temperature 97.6 F L 97.4 F L Temperature Source Temporal Temporal Pulse Rate 54 L 60 Respiratory Rate 16 16 16 Blood Pressure 151/66 H 151/83 H Blood Pressure Mean 94 105 Pulse Ox 100 99 Oxygen Delivery Method Room Air Room Air 05/15/21 14:00 Temperature 97.1 F L Temperature Source Temporal Pulse Rate 58 L Respiratory Rate 16 Blood Pressure 137/79 H Blood Pressure Mean 98 Pulse Ox Oxygen Delivery Method Positive well nourished and well developed General Appearance ED: well developed HEENT Reports moist mucous membranes Neck supple and no JVD Resp normal respiratory effort and clear to auscultation bilaterally Cardio regular rate, regular rhythm and no murmurs GI normal to inspection, nondistended, normoactive bowel sounds and non-tender Palpation: soft; Negative for guarding or rebound tenderness present Back/Spine General Back: CVA tenderness left Extremity normal to inspection General Extremety ED: Negative for edema or tenderness General Extremity: Negative for edema Neuro oriented x3, CN's II-XII intact bilaterally and no sensory deficits noted Sensorium / Orientation: alert Motor Exam: strength 5/5 throughout Psych mental status grossly normal Skin no rashes or lesions noted MDM MDM MDM Narrative Medical decision making narrative: Patient was given IV fluids, morphine, and Zofran here. CBC was within normal limits. Basic metabolic profile is essentially within normal limits. Urinalysis shows occult blood of 250 with greater than 100 red blood cells. There is no evidence of urinary tract infection. CT scan of the abdomen pelvis was obtained. There is left hydroureter and hydronephrosis. There is no stone visualized. This was interpreted by the radiologist and reviewed by myself. There is urine in a specimen cup in the room. There does appear to be a small calcification in the specimen jar. Patient was advised that this could be a recently passed stone. Patient states his pain is improved. Patient was given a prescription for a short course of [place]. Patient was instructed to follow-up with his primary care physician in 5 to 7 days. Patient understood and was agreeable with the plan. All questions were answered. Lab Data Attestation: I reviewed the patient's lab results. Labs: Laboratory Results - last 24 hr 05/15/21 05/15/21 05/15/21 11:20 11:20 14:20 WBC 9.9 RBC 4.97 Hgb 14.3 Hct 42.8 MCV 86.1 MCH 28.8 MCHC 33.4 RDW Std Deviation 41.0 RDW Coeff of Bull 13.2 Plt Count 315 MPV 10.6 Immature Gran % (Auto) 0.300 Neut % (Auto) 43.1 L Lymph % (Auto) 41.5 H [place] % (Auto) 12.8 H Eos % (Auto) 1.6 Baso % (Auto) 0.7 Absolute Neuts (auto) 4.3 Absolute Lymphs (auto) 4.10 Nucleated RBC % 0 Sodium 140 Potassium 3.6 Chloride 104 Carbon Dioxide 30.0 Anion Gap 6 BUN 24 H Creatinine 1.05 Estim Creat Clear Calc 76.28 Est GFR (MDRD) Af Amer 92 Est GFR (MDRD) Non-Af 76 BUN/Creatinine Ratio 22.9 H Glucose 104 Calcium 9.2 Urine Color Yellow Urine Clarity Sl. Cloudy Urine pH 5.0 Ur Specific [place] 1.020 Urine Protein 15 H Urine Glucose (UA) Normal Urine Ketones Negative Urine Occult Blood 250 H Urine Nitrite Negative Urine Bilirubin Negative Urine Urobilinogen Normal Ur Leukocyte Esterase 25 H Urine RBC > 100 SEEN Urine WBC 0 SEEN Ur Squamous Epith Cells 0-5 SEEN Urine Bacteria 0 SEEN Urine Mucus 0 SEEN Radiography Diagnostic Testing: Clinical Impression(s) from Imaging Studies Abdomen/Pelvis CT 05/15/21 12:08 IMPRESSION: Mild degree of left hydronephrosis and left hydroureter. No obstructive uropathy is seen at this time. Findings are suggestive of recently passed calculus. Multiple small gallstones. Electronically Signed: Mc Ashton MD at 12:57 EST , Discharge Plan Triage Chief Complaint: Flank Pain ED Provider: Ender Palomino Dx/Rx/DC Orders Clinical Impression: Left ureteral calculus Instructions: ED Kidney Stone, Passed Prescriptions: New hydrocodone-acetaminophen [hydrocodone-acetaminophen] 1 TABLET tablet 1 tab PO Q6H PRN PRN (Reason: Pain) 3 Days Qty: 10 RF: 0 No Action Repatha Syringe 140 mg/mL syringe 140 mg SC Q2W RF: 0 ezetimibe 10 mg tablet 10 tab PO DAILY RF: 0 Ultra CoQ10 75 mg capsule 75 mg PO DAILY RF: 0 aspirin 81 MG tablet,chewable 81 mg PO DAILY@0800 RF: 0 metoprolol tartrate 25 MG tablet 50 mg PO QHS RF: 0 pravastatin 20 MG tablet 80 mg PO QHS RF: 0 ergocalciferol (vitamin D2) 1,250 mcg (50,000 unit) capsule 5,000 unit PO QWEEK RF: 0 metoprolol tartrate 75 MG tablet 75 mg PO BREAKFAST RF: 0 omeprazole 20 mg Capsule,Delayed Release(Dr/Ec) 20 mg PO DAILY RF: 0 Primary Care Provider: Judy Samano Referrals: [facility] Judy Sinha [Primary Care Provider] - 5-7 Days Disposition Disposition: Home, Self Care
[2021-05-15 12:15] LABS: Absolute Neutrophil Count 4.3 X10^3/uL (2.0-7.7); Basophil# 0.07 X10^3/uL; Basophil% 0.7 % (0-1); Eosinophil# 0.16 X10^3/uL; Eosinophils% 1.6 % (0-5); Hematocrit 42.8 % (40-54); Hemoglobin 14.3 g/dL (13.0-16.5); Lymphocyte % 41.5 % (19-41); Mean Corp Hgb Conc 33.4 g/dL (32-36); Mean Corpuscular Hgb 28.8 pg (27.0-32.0); Mean Corpuscular Volume 86.1 fL (80-94); Mean Platelet Vol. 10.6 fl (6.2-12.0); Monocyte# 1.26 X10^3/uL; Monocyte% 12.8 % (0-10); NRBC Flagged by Analyzer 0 % (0-5); Neutrophil # 4.26 X10^3/uL (2.7-7.7); Neutrophil % 43.1 % (47-70); Platelet Count 315 K/mm3 (150-450); RBC Distribution Width CV 13.2 % (11.6-14.6); Red Blood Count 4.97 M/mm3 (4.6-6.2); White Blood Count 9.9 K/mm3 (4.4-11.0)
[2021-05-15] MEDS: Morphine 4 MG/ML Syringe IV (12:21)
[2021-05-15] MEDS: 0.9% Normal Saline 1,000 ML 1000 ML IV (12:21)
[2021-05-15] MEDS: Ondansetron 4 MG/2 ML Vial IV (12:21)
[2021-05-15 12:26] LABS: Anion Gap 6 (5-15); BUN 24 mg/dL (7-18); BUN/Creat Ratio 22.9 RATIO (10-20); Calcium,Total 9.2 mg/dL (8.5-10.1); Chloride 104 mmol/L (98-107); Creatinine, Serum 1.05 mg/dL (0.70-1.30); EST Glomerular Filtration Rate 76 mL/min (>60); Est Glom Filt Rate - Afr Amer 92 mL/min (>60); Estimated Creatinine Clearance 76.28 ml/min; Glucose 104 mg/dL (74-106); Potassium 3.6 mmol/L (3.5-5.1); Sodium Level 140 mmol/L (136-145)
[2021-05-15 12:58] VITALS: RESP 16
[2021-05-15 14:00] VITALS: BP 137/79; PULSE 58; RESP 16; TEMP 36.2
[2021-05-15 14:28] LABS: Bacteria 0 SEEN /hpf (None Seen); Mucous, Urine 0 SEEN /hpf (<or=2+); White Blood Cells 0 SEEN /hpf (0-5)
[2021-05-15 14:32] LABS: Color, Urine Yellow (Yellow); Glucose, Dipstick Normal (Normal); Ketone-Dipstick Negative (Negative); Leukocyte Esterase-Dipstick 25 /ul (Negative); Nitrite-Dipstick Negative (Negative); Occult Blood-Urine 250 /ul (Negative); Protein-Dipstick 15 mg/dl (Negative); Urine Bilirubin Dipstick Negative (Negative); Urine Clarity Sl. Cloudy (Clear); Urine Urobilinogen Normal (Normal)
[2021-05-15 14:39] LABS: Red Blood Cells-Urine > 100 SEEN /hpf (0-5); Squamous Epithelial Cells - UA 0-5 SEEN /hpf (0-5)
[2021-05-15 15:40] VITALS: BP 129/80; PULSE 69
== END 2021-05-15 15:44 | disposition home or self-care (01) ==
PROVIDERS: Emergency Provider Emergency Medicine; Visit Provider Emergency Medicine
DX: N13.2 Hydronephrosis with renal and ureteral calculous obstruction (principal); N13.4 Hydroureter; I25.10 Atherosclerotic heart disease of native coronary artery without angina pectoris; Z87.891 Personal history of nicotine dependence; I10 Essential (primary) hypertension; K21.9 Gastro-esophageal reflux disease without esophagitis; I25.2 Old myocardial infarction
CPT/HCPCS: 74176; 80048; 81001; 85025; 96361; 96374; 96375; 99283; J7030; A4216; J2405

== ENCOUNTER 2021-05-23 16:20 | Outpatient (CLI) | payer MEDICAID, SELFPAY ==
[2021-05-23 17:33] LABS: Vitamin B12 487 pg/mL (211-911)
[2021-05-23 17:42] LABS: Iron 39 ug/dL (65-175); Iron Binding Capacity,Total 330 ug/dL (250-450); PERCENT IRON SATURATION 11.8 % (15.0-55.0)
== END 2021-05-23 23:59 | disposition home or self-care (01) ==
PROVIDERS: Visit Provider Nurse Practitioner Adult Health
DX: I10 Essential (primary) hypertension (principal)
CPT/HCPCS: 87506; 36415; 82274; 82607; 82746; 83540; 83550

== ENCOUNTER 2021-07-19 07:32 | Inpatient (IN) | payer MEDICAID, SELFPAY ==
[2021-07-19] VITALS (8 sets, daily range): BP systolic 123–170; BP diastolic 67–99; PULSE 52–106; RESP 15–18; TEMP 36.2–37.9; O2SAT 93–100; BMI 28.7; BMI 28.1
--- NOTE | 2021-07-19 07:44 | EKG12_ITS ---
Test Reason : ABDOMINAL PAIN Blood Pressure : / mmHG Vent. Rate : 048 BPM Atrial Rate : 048 BPM P-R Int : 178 ms QRS Dur : 096 ms QT Int : 440 ms P-R-T Axes : 024 040 081 degrees QTc Int : 393 ms Sinus bradycardia Otherwise normal ECG Confirmed by DOROTHEA ARMIJO, JACOBO ([id number]), subeditor PASCUAL VILLANUEVA ([id number]) on 07/20/2021 12:49:09 P M Referred By: TRAY Confirmed By:ISABEL PIEDRA MD
--- NOTE | 2021-07-19 07:46 | ED.VIS.GI ---
HPI <Dr. Kamaljit Hermosillo MD - Last Filed: 07/19/21 08:41> HPI - GI History of Present Illness Chief Complaint: Abd Pain Informant: patient Abdominal Pain/Flank Pain Onset: Today and Hours Context: Sudden Onset Timing: Continuous Quality: Aching and Burning Location: Epigastric Current Severity: Moderate Maximum Severity: Moderate Worsened by: Nothing Relieved by: Nothing Nausea/Vomiting/Emesis GI Symptom: Negative for Nausea and Vomiting Diarrhea/Melena/Hematochezia GI Symptom: Negative for Diarrhea, Melena and Hematochezia Associated Symptoms Associated Symptoms: Negative for Dysuria, Frequency and Hematuria Narrative Narrative: 60-year-old male history of CAD, ID x2, CABG and stents, hypertension and kidney stones. Patient states that 1 week ago after eating pizza had epigastric pain that resolved. This morning around 2:30 AM he was awoken from sleep with epigastric pain that goes into his back. He denies any nausea, vomiting or diarrhea. No fever or chills. No chest pain or shortness of breath. No melena. He has never been told he had an ulcer, gastritis, reflux, pancreatitis or gallbladder disease. He does still have his gallbladder. He denies anything specifically makes the pain better or worse. Prior similar symptoms: Yes Recent Illness/Hospitalization: No PFSH <Dr. Kamaljit Hermosillo MD - Last Filed: 07/19/21 08:41> PFSH Medical History Chest pain Coronary artery disease GERD (gastroesophageal reflux disease) Heart disease History of heart attack HTN (hypertension) Kidney stones Myocardial infarct Smoker Home Medications aspirin 81 mg PO DAILY@0800 01/02/16 [History Last Taken Unknown] metoprolol tartrate 50 mg PO QHS 01/02/16 [History Last Taken Unknown] pravastatin 80 mg PO QHS 01/02/16 [History Last Taken Unknown] coenzyme Q10 75 mg capsule 75 mg PO DAILY 09/10/19 [History Last Taken Unknown] evolocumab 140 mg/mL subcutaneous syringe 140 mg SC Q2W 09/10/19 [History Last Taken Unknown] ezetimibe 10 mg tablet 10 tab PO DAILY 09/10/19 [History Last Taken Unknown] ergocalciferol (vitamin D2) 5,000 unit PO QWEEK 12/09/19 [History Last Taken Unknown] metoprolol tartrate 75 mg PO BREAKFAST 12/09/19 [History Last Taken Unknown] omeprazole 20 mg PO DAILY 08/14/20 [History Last Taken Unknown] hydrocodone-acetaminophen 1 tab PO Q6H PRN PRN 3 Days #10 tablet 05/15/21 [Rx Last Taken Unknown] Allergy/AdvReac Type Severity Reaction Status Date / Time peanut Allergy Anaphylaxis Verified 07/19/21 07:32 Surgical History History of quadruple bypass Hx of CABG Hx of heart artery stent Social History Smoking Status: Former smoker ROS <Dr. Kamaljit Hermosillo MD - Last Filed: 07/19/21 08:41> ROS ED ROS Narrative Epigastric abdominal pain. Review of Systems ROS Unobtainable: Denies due to encephalopathy Constitutional Constitutional ED: Denies fever(s) ENT ENT ED: Denies ear pain Cardiovascular Cardiovascular: Denies chest pain Respiratory/Chest Respiratory/Chest: Denies dyspnea Gastrointestinal Gastrointestinal: Reports abdominal pain; Denies constipation, diarrhea, melena, nausea or vomiting Genitourinary Genitourinary ED: Denies dysuria Musculoskeletal Musculoskeletal: Denies myalgias Integumentary Denies rash Neurologic Neurologic: Denies headache(s) Psychiatric Psychiatric: Denies depression Endocrine Endocrinology: Denies polyuria Hematologic/Lymphatic Hematologic/Lymphatic: Denies easy bruising Allergic/Immunologic Allergic/Immunologic ED: Denies urticaria EXAM <Dr. Kamaljit Hermosillo MD - Last Filed: 07/19/21 08:41> Physical Exam Narrative Exam Narrative: 60-year-old male with complaint of epigastric abdominal pain. Vital signs are stable and afebrile. He does not look septic or toxic. H EENT exam unremarkable. Moist use membranes. Lungs are clear equal symmetrical. Heart regular rhythm rate about 60 no murmur. Abdomen is soft nondistended normal bowel sounds no peritoneal signs. There is no right upper or right lower quadrant tenderness. His only area of tenderness is epigastric tenderness which really does not change significantly with palpation. There is no pulsatile mass. There is no distention. No hernia. No signs of obstruction. Moving all 4 extremities. Calves are nontender without edema. Neurologically is awake and alert with no focal motor deficits. Const Vital Signs: 07/19/21 07:34 07/19/21 09:54 07/19/21 11:59 Temperature 97.2 F L Temperature Source Temporal Pulse Rate 52 L 77 72 Respiratory Rate 17 16 15 Blood Pressure 170/99 H 134/96 H 126/77 H Blood Pressure Mean 122 108 93 Pulse Ox 100 98 97 Oxygen Delivery Method Room Air Room Air Room Air 07/19/21 14:37 Temperature Temperature Source Pulse Rate 75 Respiratory Rate 18 Blood Pressure 146/94 H Blood Pressure Mean 111 Pulse Ox 93 Oxygen Delivery Method Room Air Positive well nourished and well developed; Negative for cachectic, contractures or unkempt General Appearance ED: well developed and NAD; Negative for unkempt, cachectic, contractures or pallor Nutritional Appearance: Negative for cachectic HEENT Reports moist mucous membranes normocephalic and atraumatic; Negative for trauma or tenderness Eyes PERRL and EOMs intact bilaterally General Eye ED: Negative for pale conjunctiva or scleral icterus Neck no lymphadenopathy, supple and no JVD General: Negative for tenderness Resp normal respiratory effort and clear to auscultation bilaterally Auscultation: Negative for rales, rhonchi or wheezes Cardio regular rate, regular rhythm, S1 normal heart sound, S2 normal heart sound and no murmurs GI non-distended and no masses; Negative for non-tender Inspection: Negative for abdominal distention Auscultation: normoactive bowel sounds; Negative for hyperactive bowel sounds or hypoactive bowel sounds Palpation: soft and tender; Negative for guarding, rigid or rebound tenderness present Back/Spine no CVA tenderness General Back: Negative for CVA tenderness Cervical Spine: Negative for cervical spine tenderness Thoracic Spine / Upper Back: Negative for thoracic spinal tenderness Extremity full ROM General Extremety ED: Negative for edema or tenderness General Extremity: Negative for edema Neuro moves all extremities Sensorium / Orientation: alert, oriented to person, oriented to place and oriented to time; Negative for orientation impaired, confused, lethargic or stuporous Motor Exam: strength 5/5 throughout Psych mental status grossly normal and thought process normal Appearance: Negative for unkempt Attitude: No agitated Mood & Affect: Negative for depressed or tearful Skin no wounds General Skin Exam: Negative for jaundice or pallor Lesions: no lesions Rashes: no rashes <Dr. Lenin Lee MD - Last Filed: 07/19/21 16:08> Physical Exam Const Vital Signs: 07/19/21 07:34 07/19/21 09:54 07/19/21 11:59 Temperature 97.2 F L Temperature Source Temporal Pulse Rate 52 L 77 72 Respiratory Rate 17 16 15 Blood Pressure 170/99 H 134/96 H 126/77 H Blood Pressure Mean 122 108 93 Pulse Ox 100 98 97 Oxygen Delivery Method Room Air Room Air Room Air 07/19/21 14:37 Temperature Temperature Source Pulse Rate 75 Respiratory Rate 18 Blood Pressure 146/94 H Blood Pressure Mean 111 Pulse Ox 93 Oxygen Delivery Method Room Air [facility] <Dr. Kamaljit Hermosillo MD - Last Filed: 07/19/21 08:41> [facility] Narrative Medical decision making narrative: 60-year-old male with epigastric abdominal pain. Differential would include gastritis, reflux, pancreatitis, gallbladder disease versus other etiologies. He did have a CAT scan around 2 months ago and at that time there were no signs of any aneurysm. He has had kidney stones before this does not sound like a kidney stone. He will be treated with IV morphine and Zofran. And labs are being obtained. I do not think this is cardiac due to his cardiac history will obtain an EKG and troponin. Repeat exam at 830 patient is having some improvement of his pain. He will be given a GI cocktail and Protonix to see if that improves his symptoms. Lab Data Attestation: I reviewed the patient's lab results. Lab results narrative: CBC normal with a white count of 9. H&H of 13 and 40. Electrolytes unremarkable. Gap is 7. Normal BUN and creatinine. Liver enzymes are normal, except alkaline phosphatase is slightly elevated at 123.. Lipase is normal 152. Troponin normal at 6. Labs: Laboratory Results - last 24 hr 07/19/21 07/19/21 07:44 07:44 WBC 9.5 RBC 4.66 Hgb 13.2 Hct 40.9 MCV 87.8 MCH 28.3 MCHC 32.3 RDW Std Deviation 44.5 H RDW Coeff of Bull 13.9 Plt Count 284 MPV 9.9 Immature Gran % (Auto) 0.300 Neut % (Auto) 54.9 Lymph % (Auto) 28.5 Graves % (Auto) 13.9 H Eos % (Auto) 1.9 Baso % (Auto) 0.5 Absolute Neuts (auto) 5.2 Absolute Lymphs (auto) 2.71 Nucleated RBC % 0 Sodium 139 Potassium 4.0 Chloride 103 Carbon Dioxide 29.0 Anion Gap 7 BUN 21 H Creatinine 0.87 Estim Creat Clear Calc 92.07 Est GFR (MDRD) Af Amer 114 Est GFR (MDRD) Non-Af 95 BUN/Creatinine Ratio 24.1 H Glucose 115 H Calcium 9.4 Total Bilirubin 0.40 AST 27 ALT 36 Alkaline Phosphatase 123 H Troponin I High Sens 6 Total Protein 7.9 Albumin 3.6 Globulin 4.3 H Albumin/Globulin Ratio 0.8 L Lipase 152 Radiography Diagnostic Testing: Clinical Impression(s) from Imaging Studies Abdomen/Pelvis CT 07/19/21 10:09 IMPRESSION: No acute abnormality. Cholelithiasis. Electronically Signed: Layo Metzger MD at 11:29 EDT Reading Location ID and State: [id number] / [employer] Tel , Service support , Gallbladder Ultrasound 07/19/21 11:53 IMPRESSION: Stones and sludge in the gallbladder. Electronically Signed: Layo Metzger MD at 13:17 EDT Reading Location ID and State: [id number] / [employer] Tel , Service support , Rhythm Strip Rhythm Strip: Sinus Rhythm Rate: 48 Ectopy: None EKG Initial EKG: Attestation: I personally reviewed and interpreted this EKG as follows: Interpretation: Sinus Rhythm and Sinus Bradycardia Comments: Sinus bradycardia rate of 48. No acute signs of ID or ischemia. <Dr. Lenin Lee MD - Last Filed: 07/19/21 16:08> [facility] Narrative Medical decision making narrative: Took over care of this patient, surgery saw and evaluated in the emergency department, given stones and persistent discomfort in the epigastrium despite treatment for gastritis which is what history suggest, will admit to observation for further evaluation possible cholecystectomy if further evaluation to dictate it is indicated. Lab Data Attestation: I reviewed the patient's lab results. Labs: Laboratory Results - last 24 hr 07/19/21 07/19/21 07:44 07:44 WBC 9.5 RBC 4.66 Hgb 13.2 Hct 40.9 MCV 87.8 MCH 28.3 MCHC 32.3 RDW Std Deviation 44.5 H RDW Coeff of Bull 13.9 Plt Count 284 MPV 9.9 Immature Gran % (Auto) 0.300 Neut % (Auto) 54.9 Lymph % (Auto) 28.5 Graves % (Auto) 13.9 H Eos % (Auto) 1.9 Baso % (Auto) 0.5 Absolute Neuts (auto) 5.2 Absolute Lymphs (auto) 2.71 Nucleated RBC % 0 Sodium 139 Potassium 4.0 Chloride 103 Carbon Dioxide 29.0 Anion Gap 7 BUN 21 H Creatinine 0.87 Estim Creat Clear Calc 92.07 Est GFR (MDRD) Af Amer 114 Est GFR (MDRD) Non-Af 95 BUN/Creatinine Ratio 24.1 H Glucose 115 H Calcium 9.4 Total Bilirubin 0.40 AST 27 ALT 36 Alkaline Phosphatase 123 H Troponin I High Sens 6 Total Protein 7.9 Albumin 3.6 Globulin 4.3 H Albumin/Globulin Ratio 0.8 L Lipase 152 Radiography Diagnostic Testing: Clinical Impression(s) from Imaging Studies Abdomen/Pelvis CT 07/19/21 10:09 IMPRESSION: No acute abnormality. Cholelithiasis. Electronically Signed: Layo Metzger MD at 11:29 EDT , Gallbladder Ultrasound 07/19/21 11:53 IMPRESSION: Stones and sludge in the gallbladder. Electronically Signed: Layo Metzger MD at 13:17 EDT , Discharge Plan Dx/Rx/DC Orders Clinical Impression: Abdominal pain, acute, epigastric, Cholelithiasis Disposition Disposition: [facility]
[2021-07-19 07:53] LABS: Absolute Lymphocyte Count 2.71 X10^3/uL (0.83-4.51); Absolute Neutrophil Count 5.2 X10^3/uL (2.0-7.7); Basophil# 0.05 X10^3/uL; Basophil% 0.5 % (0-1); Eosinophil# 0.18 X10^3/uL; Eosinophils% 1.9 % (0-5); Hematocrit 40.9 % (40-54); Hemoglobin 13.2 g/dL (13.0-16.5); Lymphocyte # 2.71 X10^3/ul (0.83-4.51); Lymphocyte % 28.5 % (19-41); Mean Corp Hgb Conc 32.3 g/dL (32-36); Mean Corpuscular Hgb 28.3 pg (27.0-32.0); Mean Corpuscular Volume 87.8 fL (80-94); Mean Platelet Vol. 9.9 fl (6.2-12.0); Monocyte# 1.32 X10^3/uL; Monocyte% 13.9 % (0-10); NRBC Flagged by Analyzer 0 % (0-5); Neutrophil # 5.22 X10^3/uL (2.7-7.7); Neutrophil % 54.9 % (47-70); Platelet Count 284 K/mm3 (150-450); RBC Distribution Width CV 13.9 % (11.6-14.6); RBC Distribution Width SD 44.5 fl (35.1-43.9); Red Blood Count 4.66 M/mm3 (4.6-6.2); White Blood Count 9.5 K/mm3 (4.4-11.0)
[2021-07-19] MEDS: Ondansetron 4 MG/2 ML Vial IV (07:55)
[2021-07-19] MEDS: morphine 8 MG/ML Syringe 6 MG IV ×4 (07:55→14:50)
[2021-07-19 08:11] LABS: ALB/GLOB Ratio 0.8 RATIO (0.9-2.4); AST(SGOT) 27 U/L (15-37); Alanine Aminotransfer ALT/SGPT 36 U/L (16-61); Albumin, Serum 3.6 g/dL (3.2-5.0); Alkaline Phosphatase 123 U/L (45-117); Anion Gap 7 (5-15); BUN 21 mg/dL (7-18); BUN/Creat Ratio 24.1 RATIO (10-20); Calcium,Total 9.4 mg/dL (8.5-10.1); Chloride 103 mmol/L (98-107); Creatinine, Serum 0.87 mg/dL (0.70-1.30); EST Glomerular Filtration Rate 95 mL/min (>60); Est Glom Filt Rate - Afr Amer 114 mL/min (>60); Estimated Creatinine Clearance 92.07 ml/min; Globulin 4.3 g/dL (2.2-4.2); Glucose 115 mg/dL (74-106); Lipase 152 U/L (73-393); Protein, Total 7.9 g/dL (6.4-8.2); Sodium Level 139 mmol/L (136-145); Troponin-I HS 6 pg/mL (3.0-78.0)
[2021-07-19] MEDS: Pantoprazole Sodium 40 MG Tablet PO (08:46)
[2021-07-19] MEDS: Mag Hydrox/Al Hydrox/Simeth 30 ML UDC PO (08:47)
--- NOTE | 2021-07-19 10:09 | CT_ITS ---
STUDY: CT ABDOMEN AND PELVIS WITH CONTRAST REASON FOR EXAM: Male, 60 years old. epigastric abd pain RADIATION DOSAGE (If Supplied By Facility): CTDIvol = ( 22.35 ) mGy, DLP = ( 1141.53 ) mGycm TECHNIQUE: Transaxial images were obtained from the dome of the diaphragm to the symphysis pubis without oral contrast. IV 100mL Isovue-300 was administered. Sagittal and coronal images were reconstructed. Individualized dose optimization techniques were used for this CT. COMPARISON: 05/15/2021 FINDINGS: The visualized lung bases are unremarkable. The visualized portions of the heart are within normal limits. Normal liver. There are multiple gallstones. Normal spleen. Normal pancreas. Normal bilateral adrenal glands. Normal right kidney. Normal left kidney. Normal visualized stomach. Normal small intestine. Normal colon. The appendix is visualized and appears normal. There is diffuse atherosclerotic calcification of the abdominal aorta, without a demonstrated aneurysm. Normal inferior vena cava. Normal retroperitoneum. Normal urinary bladder. Normal abdominal wall. Normal osseous structures. CT/Abdomen/Pelvis W IV Cont ONLY IMPRESSION: No acute abnormality. Cholelithiasis. Electronically Signed: Layo Metzger MD at 11:29 EDT ,
--- NOTE | 2021-07-19 11:53 | US_ITS ---
STUDY: ABDOMINAL ULTRASOUND - RIGHT UPPER QUADRANT REASON FOR VISIT: Male, 60 years old ruq pain TECHNIQUE: Ultrasound evaluation of the right upper quadrant was performed with real-time and static meier-scale imaging. TECHNICAL QUALITY: Adequate. COMPARISON: None. FINDINGS: Liver: The liver measures 18.3 cm. There is normal echogenicity of the liver. The bile ducts are within normal limits. There is hepatic color flow. The direction of portal flow is hepatopetal. There is no demonstrated mass lesion. Gallbladder: Normal distended gallbladder. The gallbladder wall measures 10 mm. There is a negative sonographic Trujillo''s sign. There is no pericholecystic fluid. Stones and sludge in gallbladder. Common Bile Duct (C.B.D.): The common bile duct measures 4 mm. Pancreas: There is nonvisualization of the pancreas.. Right Kidney: Normal size of the right kidney. The right kidney measures 11.0 cm. Normal renal cortex. The right cortex measures 1.6 cm. There is no demonstrated renal mass or cyst. There is no right hydronephrosis. US/Gallbladder IMPRESSION: Stones and sludge in the gallbladder. Electronically Signed: Layo Metzger MD at 13:17 EDT ,
--- NOTE | 2021-07-19 15:52 | HP.PCM.SX_ITS ---
HPI - General HPI Narrative SANDRA DARNELL, is a 60 M who presents to the ER due to epigastric pain radiating to his back. Patient states his pain started last night about 2:30 AM. Patient last ate about 6 PM had some ribs. Patient states he had an episode similar to this last week after having pizza again about 6 PM and the pain did not start until early in the morning. This episode's morning was more severe. Patient's white blood cell count is normal, LFTs within normal limits, CT abdomen pelvis did show a distended gallbladder with some gallstones, ultrasound showed some sludge and gallstones, 2.2 mm gallbladder wall, no pericholecystic fluid. Patient states the pain was a 12 out of 10 when he came in currently before his last dose of morphine rated the pain a 6/10. Patient did get several doses of pain meds while here along with Protonix. Patient states he does take omeprazole 20 mg p.o. daily for reflux where he has some burning up in his esophagus but states that the medication controls it. PFSH Medical History Chest pain Coronary artery disease GERD (gastroesophageal reflux disease) Heart disease History of heart attack HTN (hypertension) Kidney stones Myocardial infarct Smoker Home Medications aspirin 81 mg PO DAILY@0800 01/02/16 [History Last Taken Unknown] metoprolol tartrate 50 mg PO QHS 01/02/16 [History Last Taken Unknown] pravastatin 80 mg PO QHS 01/02/16 [History Last Taken Unknown] coenzyme Q10 75 mg capsule 75 mg PO DAILY 09/10/19 [History Last Taken Unknown] evolocumab 140 mg/mL subcutaneous syringe 140 mg SC Q2W 09/10/19 [History Last Taken Unknown] ezetimibe 10 mg tablet 10 tab PO DAILY 09/10/19 [History Last Taken Unknown] ergocalciferol (vitamin D2) 5,000 unit PO QWEEK 12/09/19 [History Last Taken Unknown] metoprolol tartrate 75 mg PO BREAKFAST 12/09/19 [History Last Taken Unknown] omeprazole 20 mg PO DAILY 08/14/20 [History Last Taken Unknown] hydrocodone-acetaminophen 1 tab PO Q6H PRN PRN 3 Days #10 tablet 05/15/21 [Rx Last Taken Unknown] Allergy/AdvReac Type Severity Reaction Status Date / Time peanut Allergy Anaphylaxis Verified 07/19/21 07:32 Surgical History History of quadruple bypass Hx of CABG Hx of heart artery stent Social History Smoking Status: Former smoker Vital Signs Vital Signs Vital Signs: 07/19/21 07:34 07/19/21 09:54 07/19/21 11:59 Temperature 97.2 F L Temperature Source Temporal Pulse Rate 52 L 77 72 Respiratory Rate 17 16 15 Blood Pressure 170/99 H 134/96 H 126/77 H Blood Pressure Mean 122 108 93 Pulse Ox 100 98 97 Oxygen Delivery Method Room Air Room Air Room Air 07/19/21 14:37 Temperature Temperature Source Pulse Rate 75 Respiratory Rate 18 Blood Pressure 146/94 H Blood Pressure Mean 111 Pulse Ox 93 Oxygen Delivery Method Room Air Weight Weight: 200 lb 6.403 oz Body Mass Index (BMI) 28.7 Physical Exam Const alert, oriented x3 and no apparent distress HEENT normocephalic and head/scalp atraumatic Resp normal respiratory effort Cardio regular rate GI soft to palpation; Negative for non-distended Palpation: tender epigastric (No guarding or rebound); Negative for guarding Extremity no clubbing, cyanosis or edema Neuro CN's II-XII intact bilaterally Psych mental status grossly normal Results Lab / Micro Data Result Diagrams: 07/19/21 07:44 07/19/21 07:44 Labs: Laboratory Results - last 24 hr 07/19/21 07:44: WBC 9.5, RBC 4.66, Hgb 13.2, Hct 40.9, MCV 87.8, MCH 28.3, MCHC 32.3, RDW Std Deviation 44.5 H, RDW Coeff of Bull 13.9, Plt Count 284, MPV 9.9, Immature Gran % (Auto) 0.300, Neut % (Auto) 54.9, Lymph % (Auto) 28.5, [place] % (Auto) 13.9 H, Eos % (Auto) 1.9, Baso % (Auto) 0.5, Absolute Neuts (auto) 5.2, Absolute Lymphs (auto) 2.71, Nucleated RBC % 0 07/19/21 07:44: Sodium 139, Potassium 4.0, Chloride 103, Carbon Dioxide 29.0, Anion Gap 7, BUN 21 H, Creatinine 0.87, Estim Creat Clear Calc 92.07, Est GFR (MDRD) Af Amer 114, Est GFR (MDRD) Non-Af 95, BUN/Creatinine Ratio 24.1 H, Glucose 115 H, Calcium 9.4, Total Bilirubin 0.40, AST 27, ALT 36, Alkaline Phosphatase 123 H, Troponin I High Sens 6, Total Protein 7.9, Albumin 3.6, Globulin 4.3 H, Albumin/Globulin Ratio 0.8 L, Lipase 152 Rhythm Strip Rhythm Strip: Sinus Rhythm Rate: 48 Ectopy: None Radiology Impression Abdomen/Pelvis CT 07/19/21 10:09 IMPRESSION: No acute abnormality. Cholelithiasis. Electronically Signed: Layo Metzger MD at 11:29 EDT Reading Location ID and State: [id number] / [facility] Tel , Service support , Gallbladder Ultrasound 07/19/21 11:53 IMPRESSION: Stones and sludge in the gallbladder. Electronically Signed: Layo Metzger MD at 13:17 EDT , Assessment & Plan Assessment/Plan (1) Abdominal pain, acute, epigastric: (2) Cholelithiasis: PLAN: Discussed with patient that his story is all atypical for gallbladder would more likely fit with gastric etiology however patient does take his omeprazole daily as well. Patient CT abdomen pelvis was reviewed with the patient and is noted to have some gallbladder distention and the stones are near the neck of the gallbladder. The common bile duct also appears to be dilated on CT however ultrasound states its normal size and liver functions currently are normal. Plan to check liver functions and labs in the morning. Plan for cholecystectomy tomorrow afternoon. Will continue on pt home medications--metoprolol/cholesterol meds Will admit patient for pain control Reviewed the anatomy with the patient and discussed the procedure: laparoscopic cholecystectomy with possible cholangiograms, possible open. Review risks incl uding but not limited to bleeding, infection, hernia, bile leak, retained gallstones requiring another procedure ERCP- Endoscopic Retrograde Cholangiopancreatography, injury to another organ (bile ducts, common bile duct, small bowel, etc.) and conversion to an open procedure. All questions were ans wered. Lilia Castillo M.D. Pager: [phone] [facility] [address] [place] [address] [address] [place] [address] Office: [phone]
[2021-07-19] MEDS: Lactated Ringers 1,000 ML 100 ML IV (17:21)
[2021-07-19] MEDS: 0.9% Saline Lock 10 ML Syringe IV ×2 (17:21→17:31)
[2021-07-19] MEDS: HYDROmorphone 0.5 MG/0.5 ML SYRINGE IV ×2 (17:31→21:17)
[2021-07-19] MEDS: Pravastatin 80 MG Tablet PO (21:21)
[2021-07-19] MEDS: Metoprolol Tartrate 50 MG Tablet PO (21:21)
[2021-07-20] VITALS (16 sets, daily range): BP systolic 103–135; BP diastolic 55–89; PULSE 78–98; RESP 16–20; TEMP 36.9–37.8; O2SAT 93–98; BMI 28.1
--- NOTE | 2021-07-20 | GALL_PTH ---
PATIENT: SANDRA DARNELL LOC: MS3 U#:[id number] AGE/SX: 60/M ROOM: FL310 RE07/19/[address]: Dr. Lilia Castillo MD : 1960 BED: 1 DIS: 07/21/2021 SPEC #: [id number] RECD: 07/20/21 14:45 STATUS: ISATU MELONY #: [id number] SYLVAIN: 07/20/21 00:[address]: Lilia Castillo DEPT: SURGICAL PATHOLOGY RECD BY: Juan Dorsey ENTERED: 07/21/21 10:59 SP TYPE: BILLY SALAS DR: Judy [facility] Tissues: Gallbladder, NOS Procedures: Surgery Specimen Level III HEADER OPERATION: Laparoscopic cholecystectomy with IOC PRE-OP DIAGNOSIS: Acute cholecystitis, cholelithiasis TISSUE SUBMITTED: Gallbladder MICROSCOPIC DIAGNOSIS Gallbladder, cholecystectomy: Acute and chronic hemorrhagic, ulcerated and necrotizing cholecystitis and cholelithiasis. SJ:jace 07/24/2021 MICROSCOPIC DESCRIPTION Slides are reviewed. GROSS DESCRIPTION Received is one container labeled with the patient's name and designated gallbladder. The specimen consists of a previously opened gallbladder measuring 6 cm in length and up to 3 cm in diameter. An obvious cystic duct is not identified. Also present in the container are detached pieces of gallbladder wall measuring in aggregate 3 x 2.5 x 0.5 cm. Also present in the container are multiple fragments of brownish-black friable stones measuring in aggregate 2 x 1.5 x 0.3 cm and 0.3 to 1 cm in greatest dimension. No bile is identified. The gallbladder wall measures up to 0.4 cm in thickness. Parachute [employer]er sections from the gallbladder are submitted in one cassette. / DEAN:jace 07/21/2021 TC:2 CPT: 90027
[2021-07-20] MEDS: 0.9% Saline Lock 10 ML Syringe IV ×2 (00:02→04:06)
[2021-07-20] MEDS: HYDROmorphone 0.5 MG/0.5 ML SYRINGE IV ×5 (00:02→19:50)
[2021-07-20] MEDS: Lactated Ringers 1,000 ML 100 ML IV (03:22)
[2021-07-20 05:22] LABS: Absolute Lymphocyte Count 1.41 X10^3/uL (0.83-4.51); Absolute Neutrophil Count 10.3 X10^3/uL (2.0-7.7); Basophil# 0.03 X10^3/uL; Basophil% 0.2 % (0-1); Eosinophil# 0.01 X10^3/uL; Eosinophils% 0.1 % (0-5); Hematocrit 38.9 % (40-54); Hemoglobin 12.5 g/dL (13.0-16.5); Lymphocyte # 1.41 X10^3/ul (0.83-4.51); Lymphocyte % 9.8 % (19-41); Mean Corp Hgb Conc 32.1 g/dL (32-36); Mean Corpuscular Hgb 28.1 pg (27.0-32.0); Mean Corpuscular Volume 87.4 fL (80-94); Mean Platelet Vol. 10.2 fl (6.2-12.0); Monocyte# 2.51 X10^3/uL; Monocyte% 17.5 % (0-10); NRBC Flagged by Analyzer 0 % (0-5); Neutrophil # 10.33 X10^3/uL (2.7-7.7); POSITIVE DIFFERENTIAL YES; Platelet Count 238 K/mm3 (150-450); RBC Distribution Width CV 14.3 % (11.6-14.6); Red Blood Count 4.45 M/mm3 (4.6-6.2); White Blood Count 14.4 K/mm3 (4.4-11.0)
[2021-07-20 05:38] LABS: Differential Indicated SCAN CRITERIA MET
[2021-07-20 05:40] LABS: AST(SGOT) 18 U/L (15-37); Alanine Aminotransfer ALT/SGPT 28 U/L (16-61); Alkaline Phosphatase 84 U/L (45-117); Anion Gap 5 (5-15); BUN 16 mg/dL (7-18); BUN/Creat Ratio 21.5 RATIO (10-20); Bilirubin, Direct 0.32 mg/dL (0.00-0.30); Calcium,Total 8.1 mg/dL (8.5-10.1); Chloride 103 mmol/L (98-107); Creatinine, Serum 0.74 mg/dL (0.70-1.30); EST Glomerular Filtration Rate 113 mL/min (>60); Est Glom Filt Rate - Afr Amer 137 mL/min (>60); Estimated Creatinine Clearance 108.24 ml/min; Globulin 3.8 g/dL (2.2-4.2); Glucose 124 mg/dL (74-106); Potassium 3.8 mmol/L (3.5-5.1); Protein, Total 6.8 g/dL (6.4-8.2); Sodium Level 134 mmol/L (136-145)
[2021-07-20 05:59] LABS: Differential Comment SCANNED
--- NOTE | 2021-07-20 07:38 | PN.SURG_ITS ---
Subjective Subjective Patient states pain has been controlled with pain meds. Objective Data Objective Data Vital Signs: Vital Signs Temp Pulse Resp BP Pulse Ox 99.1 F 85 16 115/75 93 07/20/21 04:04 07/20/21 04:04 07/20/21 04:04 07/20/21 04:04 07/20/21 04:04 Oxygen Delivery Method Room Air Weight: 196 lb 4.8 oz Body Mass Index (BMI) 28.1 Intake & Output: Intake and Output for Last 24 Hours 07/18/21 07/19/21 07/20/21 23:59 23:59 23:59 Intake Total 810 / 810 568.33 / 568.33 Balance 810 / 810 568.33 / 568.33 Lab / Micro Data Result Diagrams: 07/20/21 04:59 07/20/21 04:59 Labs: Laboratory Results - last 24 hr 07/19/21 07:44: WBC 9.5, RBC 4.66, Hgb 13.2, Hct 40.9, MCV 87.8, MCH 28.3, MCHC 32.3, RDW Std Deviation 44.5 H, RDW Coeff of Bull 13.9, Plt Count 284, MPV 9.9, Immature Gran % (Auto) 0.300, Neut % (Auto) 54.9, Lymph % (Auto) 28.5, [place] % (Auto) 13.9 H, Eos % (Auto) 1.9, Baso % (Auto) 0.5, Absolute Neuts (auto) 5.2, Absolute Lymphs (auto) 2.71, Nucleated RBC % 0 07/19/21 07:44: Sodium 139, Potassium 4.0, Chloride 103, Carbon Dioxide 29.0, Anion Gap 7, BUN 21 H, Creatinine 0.87, Estim Creat Clear Calc 92.07, Est GFR (MDRD) Af Amer 114, Est GFR (MDRD) Non-Af 95, BUN/Creatinine Ratio 24.1 H, Glucose 115 H, Calcium 9.4, Total Bilirubin 0.40, AST 27, ALT 36, Alkaline Phosphatase 123 H, Troponin I High Sens 6, Total Protein 7.9, Albumin 3.6, Globulin 4.3 H, Albumin/Globulin Ratio 0.8 L, Lipase 152 07/20/21 04:59: WBC 14.4 H, RBC 4.45 L, Hgb 12.5 L, Hct 38.9 L, MCV 87.4, MCH 28.1, MCHC 32.1, RDW Std Deviation 46.0 H, RDW Coeff of Bull 14.3, Plt Count 238, MPV 10.2, Immature Gran % (Auto) 0.400, Neut % (Auto) 72.0 H, Lymph % (Auto) 9.8 L, [place] % (Auto) 17.5 H, Eos % (Auto) 0.1, Baso % (Auto) 0.2, Absolute Neuts (auto) 10.3 H, Absolute Lymphs (auto) 1.41, Nucleated RBC % 0, Differential Comment SCANNED, Diff Path Review July07/20/21 04:59: Sodium 134 L, Potassium 3.8, Chloride 103, Carbon Dioxide 26.0, Anion Gap 5, BUN 16, Creatinine 0.74, Estim Creat Clear Calc 108.24, Est GFR (MDRD) Af Amer 137, Est GFR (MDRD) Non-Af 113, BUN/Creatinine Ratio 21.5 H, Glucose 124 H, Calcium 8.1 L, Total Bilirubin 0.90, Direct Bilirubin 0.32 H, AST 18, ALT 28, Alkaline Phosphatase 84, Total Protein 6.8, Albumin 3.0 L, Globulin 3.8 Micro: Microbiology 07/19/21 21:40 Nasal Secretion SARS-CoV-2 Antigen (Rapid) - Final Radiography Diagnostic Testing: Radiology Impression Abdomen/Pelvis CT 07/19/21 10:09 IMPRESSION: No acute abnormality. Cholelithiasis. Electronically Signed: Layo Metzger MD at 11:29 EDT Reading Location ID and State: [id number] / Back& Tel , Service support , Gallbladder Ultrasound 07/19/21 11:53 IMPRESSION: Stones and sludge in the gallbladder. Electronically Signed: Layo Metzger MD at 13:17 EDT , Rhythm Strip Rhythm Strip: Sinus Rhythm Rate: 48 Ectopy: None Physical Exam Const alert, oriented x3 and no apparent distress HEENT normocephalic and head/scalp atraumatic Resp normal respiratory effort Cardio regular rate GI soft to palpation; Negative for non-distended Palpation: tender epigastric (No guarding or rebound); Negative for guarding Extremity no clubbing, cyanosis or edema Neuro CN's II-XII intact bilaterally Psych mental status grossly normal Assessment & Plan Assessment/Plan (1) Acute cholecystitis: (2) Cholelithiasis: PLAN: Patient white blood count is 14.4 consistent with acute cholecystitis we will start patient on Zosyn 3.375 g IV every 8 hours Did review the procedure with patient again laparoscopic cholecystectomy with cholangiograms, possible open patient no further questions this time. Surgery scheduled for about 130 today. Lilia Castillo M.D. Pager: [phone] [facility] [address] [place] [address], [facility], [address] [place] [address] Office: [phone]
[2021-07-20] MEDS: Metoprolol Tartrate 25 MG Tablet 75 MG PO (07:50)
[2021-07-20] MEDS: 0.9% Normal Saline 1,000 ML 100 ML IV ×2 (08:00→16:02)
--- NOTE | 2021-07-20 10:20 | CASEMGMT ---
RN JANETT Face to Face with patient for initial transition planning/care coordination assessment. RN CM introduced self and role at [facility]. Patient lying in bed, alert and oriented. Patient willing to participate in assessment and is able to answer all questions appropriately. Care providers, pharmacy, and demographics verified. Patient wishes to discharge home, denies need for home health at this time. Patient states he has no further needs or concerns at this time. CM to follow for discharge planning needs that may arise. PCP: Judy Hamilton Specialists: [place] [employer] Preferred Pharmacy: [facility] Insurance: [employer] Prescription Benefit: yes Living Will/HPOA: none LNOK: Friend Living Arrangements: Patient lives alone in a single story home with 1 step to enter the home. Patient states he is independent at home. Transportation: self, friend DME/HHC: Patient denies DME or previous HHC. Disposition Plan: Patient to discharge home with family support and follow-up plans in place. Lillie BRUCE, RN, CM
[2021-07-20] MEDS: Lactated Ringers 1,000 ML 15 ML IV (12:30)
[2021-07-20 13:30] LABS: Pathologist Review Reviewed
[2021-07-20] MEDS: Bupivacaine 0.25% 30 ML Vial (13:50)
--- NOTE | 2021-07-20 14:09 | OP.PCM_ITS ---
Report of Operation Date of Procedure: 07/20/21 Pre-Operative Diagnosis: Acute cholecystitis Post-Operative Diagnosis: Same Surgery/Procedure Performed:: Laparoscopic subtotal cholecystectomy Description of Surgical Findings:: Dense adhesions were found and able to safely dissect the cystic artery and cystic duct?converted to subtotal cholecystectomy Surgeon: Lilia Castillo Type of Anesthesia: General/Supplemental Anesthesiologist: Thom Jesus Special Medications: Zosyn 3.375 g IV every 8 hours for acute cholecystitis Specimen's removed: Gallbladder wall and stones Drains: 15 Gabonese ESTRELLA right upper quadrant Estimated Blood Loss (mL): 20 cc Fluids Replaced: Per anesthesia Description of Procedure: Indications: this is a 60 year-old male who developed abdominal pain/nausea/vomiting and on workup was found to have acute cholecystitis, cholelithiasis, with a normal common bile duct, normal LFTs. Laparoscopic cholecystectomy was elected. Description procedure: The patient was placed on operating table in supine position. A timeout was completed verifying correct patient, procedure, site, position and special equipment prior to beginning procedure. General Anesthesia was induced. The abdomen was prepped and draped in usual sterile fashion. An incision was made in the natural skin line above the umbilicus. The fascia was elevated and incised. The peritoneum was elevated and incised. Entry into the peritoneum was confirmed visually and no bowel was noted in the vicinity of the incision. Conde trocar was placed. The abdomen was insufflated with carbon dioxide to a pressure of 12-15 mmHg. Patient tolerated insufflation well. The laparoscope was then inserted and abdomen inspected. No injuries from initial trocar placement were noted. Additional trochars were then inserted in the following locations 5 mm trocar in the epigastrium and 2 more 5 mm trochars along the right costal margin. The abdomen was inspected no abnormalities were found. The table is placed in reverse Trendelenburg position with the right side up. The omentum was adherent to the gallbladder completely covering it. The omentum was carefully taken down. Able to remove the omentum from about three fourths of the gallbladder however at the neck of the gallbladder there is dense adhesions. The dome of the gallbladder was grasped with atraumatic grasper passed through the lateral port and retracted over the dome of the liver. Due to the dense adhesions unable to visualize Calot's triangle. Case was converted to a subtotal cholecystectomy. Harmonic was used to take down the anterior wall. All stones were removed and placed in endoscopic retrieval bag along with the anterior gallbladder wall. Erby was used to cauterize the posterior gallbladder wall. There is no noted bile leakage; however, there was a small amount of purulent material coming from the neck of the gallbladder/cystic duct. Hemostasis was checked. The gallbladder wall and stones were passed off table as specimen. The gallbladder fossa was irrigated with saline and hemostasis obtained. There is no evidence of bleeding from the gallbladder fossa or leakage of bile from the cystic duct. 15 Gabonese round SETRELLA was placed in the gallbladder fossa. Secondary trochars removed under direct vision. No bleeding was noted the trocar sites. The laparoscope was withdrawn and umbilical trocar removed. The abdomen was allowed to collapse. Drain was secured with 3-0 nylon suture. The fascia of the 12 mm trocar was closed with a [id number] 0 Vicryl suture. The skin was closed with sutures of 4-0 Monocryl and Steri-Strips. Local anesthesia of 0.25% Marcaine 30 cc used throughout the case. The patient was extubated. The patient tolerated procedure well and was taken to the postanesthesia care unit in stable condition. Complications none
[2021-07-20] MEDS: Ezetimibe 10 MG Tablet PO (16:00)
[2021-07-20] MEDS: Metoprolol Tartrate 50 MG Tablet PO (22:19)
[2021-07-20] MEDS: Pravastatin 80 MG Tablet PO (22:20)
[2021-07-21 00:14] VITALS: BP 112/65; PULSE 72; RESP 16; TEMP 37.2; O2SAT 95
[2021-07-21] MEDS: 0.9% Normal Saline 1,000 ML 100 ML IV (00:37)
[2021-07-21] MEDS: HYDROmorphone 0.5 MG/0.5 ML SYRINGE IV ×2 (00:40→05:16)
[2021-07-21 04:14] VITALS: BP 121/66; PULSE 82; RESP 16; TEMP 37.1; O2SAT 94
[2021-07-21 06:30] LABS: Absolute Lymphocyte Count 1.28 X10^3/uL (0.83-4.51); Absolute Neutrophil Count 8.4 X10^3/uL (2.0-7.7); Basophil# 0.03 X10^3/uL; Basophil% 0.3 % (0-1); Eosinophil# 0.02 X10^3/uL; Eosinophils% 0.2 % (0-5); Hematocrit 34.6 % (40-54); Hemoglobin 11.1 g/dL (13.0-16.5); Lymphocyte # 1.28 X10^3/ul (0.83-4.51); Lymphocyte % 11.3 % (19-41); Mean Corp Hgb Conc 32.1 g/dL (32-36); Mean Corpuscular Hgb 27.7 pg (27.0-32.0); Mean Corpuscular Volume 86.3 fL (80-94); Mean Platelet Vol. 10.1 fl (6.2-12.0); Monocyte# 1.55 X10^3/uL; Monocyte% 13.7 % (0-10); NRBC Flagged by Analyzer 0 % (0-5); Neutrophil # 8.43 X10^3/uL (2.7-7.7); Neutrophil % 74.1 % (47-70); POSITIVE DIFFERENTIAL YES; Platelet Count 202 K/mm3 (150-450); RBC Distribution Width CV 14.6 % (11.6-14.6); Red Blood Count 4.01 M/mm3 (4.6-6.2); White Blood Count 11.4 K/mm3 (4.4-11.0)
[2021-07-21 06:43] LABS: Differential Indicated SCAN CRITERIA MET
[2021-07-21 07:03] LABS: AST(SGOT) 19 U/L (15-37); Alanine Aminotransfer ALT/SGPT 21 U/L (16-61); Albumin, Serum 2.5 g/dL (3.2-5.0); Alkaline Phosphatase 92 U/L (45-117); Anion Gap 5 (5-15); BUN 13 mg/dL (7-18); BUN/Creat Ratio 18.2 RATIO (10-20); Bilirubin, Direct 0.82 mg/dL (0.00-0.30); Calcium,Total 7.7 mg/dL (8.5-10.1); Chloride 104 mmol/L (98-107); Creatinine, Serum 0.72 mg/dL (0.70-1.30); EST Glomerular Filtration Rate 119 mL/min (>60); Est Glom Filt Rate - Afr Amer 144 mL/min (>60); Estimated Creatinine Clearance 111.25 ml/min; Globulin 3.9 g/dL (2.2-4.2); Glucose 103 mg/dL (74-106); Potassium 3.4 mmol/L (3.5-5.1); Protein, Total 6.4 g/dL (6.4-8.2); Sodium Level 135 mmol/L (136-145)
[2021-07-21 07:11] LABS: Differential Comment SCANNED
--- NOTE | 2021-07-21 07:56 | PN.SURG_ITS ---
Subjective Subjective Patient tolerating clears denies any nausea or vomiting, patient denies any flatus. Patient's ESTRELLA is serosanguineous Objective Data Objective Data Vital Signs: Vital Signs Temp Pulse Resp BP Pulse Ox 98.7 F 82 16 121/66 H 94 07/21/21 04:14 07/21/21 04:14 07/21/21 04:14 07/21/21 04:14 07/21/21 04:14 Oxygen Delivery Method Room Air Weight: 196 lb 4.8 oz Body Mass Index (BMI) 28.1 Intake & Output: Intake and Output for Last 24 Hours 07/19/21 07/20/21 07/21/21 23:59 23:59 23:59 Intake Total 810 / 810 2295.66 / 2595.66 1208.33 / 1208.33 Output Total 70 / 70 30 / 30 Balance 810 / 810 2225.66 / 2525.66 1178.33 / 1178.33 Lab / Micro Data Result Diagrams: 07/21/21 05:40 07/21/21 05:40 Labs: Laboratory Results - last 24 hr 07/20/21 04:59: Diff Path Review Reviewed 07/21/21 05:40: WBC 11.4 H, RBC 4.01 L, Hgb 11.1 L, Hct 34.6 L, MCV 86.3, MCH 27.7, MCHC 32.1, RDW Std Deviation 46.0 H, RDW Coeff of Bull 14.6, Plt Count 202, MPV 10.1, Immature Gran % (Auto) 0.400, Neut % (Auto) 74.1 H, Lymph % (Auto) 11.3 L, [place] % (Auto) 13.7 H, Eos % (Auto) 0.2, Baso % (Auto) 0.3, Absolute Neuts (auto) 8.4 H, Absolute Lymphs (auto) 1.28, Nucleated RBC % 0, Differential Comment SCANNED, Diff Path Review July07/21/21 05:40: Sodium 135 L, Potassium 3.4 L, Chloride 104, Carbon Dioxide 26.0, Anion Gap 5, BUN 13, Creatinine 0.72, Estim Creat Clear Calc 111.25, Est GFR (MDRD) Af Amer 144, Est GFR (MDRD) Non-Af 119, BUN/Creatinine Ratio 18.2, Glucose 103, Calcium 7.7 L, Total Bilirubin 1.80 H, Direct Bilirubin 0.82 H, AST 19, ALT 21, Alkaline Phosphatase 92, Total Protein 6.4, Albumin 2.5 L, Globulin 3.9 Micro: Microbiology 07/19/21 21:40 Nasal Secretion SARS-CoV-2 Antigen (Rapid) - Final Rhythm Strip Rhythm Strip: Sinus Rhythm Rate: 48 Ectopy: None Physical Exam Resp normal respiratory effort Cardio regular rate GI GI Narrative: Abdomen: Soft, mild distended, tender near incision's dressed clean dry and intact, no peritoneal signs, right upper quadrant ESTRELLA serosanguineous Assessment & Plan Assessment/Plan (1) S/P laparoscopic cholecystectomy: PLAN: Patient tolerating clears will advance to full's. We will wait for regular diet until patient has bowel function. Continue ESTRELLA to bulb, continue to monitor currently serosanguineous. If bilious may need an ERCP Continue pain control Continue ambulation Lilia Castillo M.D. Pager: [phone] [facility] [address] [place] [address], [facility], [address] [place] [address] Office: [phone]
[2021-07-21 07:58] VITALS: BP 120/73; PULSE 86; RESP 18; TEMP 37.2; O2SAT 97
[2021-07-21 08:08] VITALS: BP 120/73; PULSE 86
[2021-07-21] MEDS: Metoprolol Tartrate 25 MG Tablet 75 MG PO (08:08)
[2021-07-21] MEDS: HYDROcodone Bitartrate/Apap 5/325 Tablet PO ×2 (08:08→13:40)
[2021-07-21] MEDS: Potassium Chloride Oral Tablet 20 MEQ 40 MEQ PO (09:35)
[2021-07-21] MEDS: Docusate Sodium 100 MG Capsule 200 MG PO (09:39)
[2021-07-21] MEDS: Ezetimibe 10 MG Tablet PO (09:51)
[2021-07-21] MEDS: Polyethylene Glycol 3350 17 GM PACKET PO (10:52)
[2021-07-21 14:00] LABS: Pathologist Review Reviewed
[2021-07-21 14:02] VITALS: BP 105/63; PULSE 62; RESP 18; TEMP 36.8; O2SAT 97
--- NOTE | 2021-07-21 15:46 | EX.PCM.DISCH ---
Discharge Instructions Diet Discharge Diet: Light diet - advance as tolerated Activity Discharge Activity: May Not Drive (while taking narcotic pain medications.) May shower in (days): 1 Lifting Restrictions: no lifting >20 lbs x 2 wks, no strenuous exercise for 4 wks Dressing / Incision Call your doctor if your incision/area has: Continuous Slow Oozing, Sudden Increased Bleeding, Increased Pain/ Swelling, Increased Redness, Foul Smelling Discharge and Swelling at the incision site Call your doctor if you observe: Fever of 101 or Higher Remove Dressing in: 2 days Cleanse incision/area with: Soap & Water Additional Dressing/Incision Instructions:: Steri-Strips will fall off in 7 to 10 days, if they do not fall off okay to remove after 10 days. Empty ESTRELLA when 1/ full--record output color and amount and bring to office appt--Saturday- Follow Up Care Please Follow Up With: Lilia Castillo MD When: Office appt m--Saturday for drain removal; after 5 PM and on the weekends call [phone] with any concerns. Test Results: Test results from this visit will be discussed in further detail at your follow-up appointment, if applicable. Discharge Plan Admission Admit Date/Time: 07/19/21 15:57 Attending Provider: Lilia Castillo [facility] Inst[facility] Additional Instructions / Restrictions: Okay to take ibuprofen 400-600 mg PO q6hr PRN along with the hydrocodone/acetaminophen. Avoid Tylenol since there is already Tylenol in the hydrocodone/acetaminophen. Take all pain meds with food. Hydrocodone/acetaminophen can cause constipation recommend taking daily stool softener (i.e. Colace/docusate) while taking the pain meds. Recommend starting some MiraLAX tomorrow if no bowel movement. If still no bowel movement in 1 to 2 days recommend taking magnesium citrate half the bottle and waiting 4-6 hours if still no results take the other half the bottle. Discharge Orders/Prescriptions Prescriptions: New hydrocodone-acetaminophen 5-325 mg tablet 1 - 2 tab PO Q6H PRN (Reason: Abdominal Pain) 4 Days Qty: 20 RF: 0 Continued Repatha Syringe 140 mg/mL syringe 140 mg SC Q2W RF: 0 ezetimibe 10 mg tablet 10 mg PO DAILY RF: 0 Ultra CoQ10 75 mg capsule 75 mg PO DAILY RF: 0 aspirin 81 MG tablet,chewable 81 mg PO DAILY@0800 RF: 0 metoprolol tartrate 25 MG tablet 50 mg PO QHS RF: 0 pravastatin 20 MG tablet 80 mg PO QHS RF: 0 ergocalciferol (vitamin D2) 1,250 mcg (50,000 unit) capsule 5,000 unit PO DAILY RF: 0 metoprolol tartrate 75 MG tablet 75 mg PO BREAKFAST RF: 0 omeprazole 20 mg Capsule,Delayed Release(Dr/Ec) 20 mg PO DAILY RF: 0 acetaminophen 650 mg Tablet 1,300 mg PO BID RF: 0 Referrals / Follow Up: [facility],Judy Farr [Primary Care Provider] - Disposition Disposition (needs filled in before D/C Order can be placed): Home, Self Care
[2021-07-21 17:02] VITALS: BP 115/73; PULSE 75; RESP 18; TEMP 36.7; O2SAT 96
== END 2021-07-21 17:40 | disposition home or self-care (01) | DRG 263 ==
LOC: ED 16:08 → MS3 16:36
PROVIDERS: Admitting Provider Surgery; Emergency Provider Emergency Medicine; Visit Provider Surgery
PROC: 0FT44ZZ Resection of Gallbladder, Percutaneous Endoscopic Approach (ICD-10-PCS; CPT 47610; principal; 2021-07-20 13:10)
DX: K80.00 Calculus of gallbladder with acute cholecystitis without obstruction (principal); K83.8 Other specified diseases of biliary tract; K21.9 Gastro-esophageal reflux disease without esophagitis; I10 Essential (primary) hypertension; I25.10 Atherosclerotic heart disease of native coronary artery without angina pectoris; K82.8 Other specified diseases of gallbladder; I25.2 Old myocardial infarction; Z87.891 Personal history of nicotine dependence; Z79.82 Long term (current) use of aspirin; Z95.1 Presence of aortocoronary bypass graft; Z95.5 Presence of coronary angioplasty implant and graft
CPT/HCPCS: 36415; 74177; 76705; 80048; 80053; 80076; 83690; 84484; 85025; 87811; 88304; 93005; 99284; J7030; J7120; Q9967; A4216; J2405

== ENCOUNTER 2021-10-29 05:40 | Inpatient (IN) | payer MEDICAID, SELFPAY ==
[2021-10-29] VITALS (11 sets, daily range): BP systolic 105–142; BP diastolic 64–85; PULSE 54–79; RESP 12–18; TEMP 35.8–37.2; O2SAT 96–100; BMI 26.4; BMI 25.7
--- NOTE | 2021-10-29 05:49 | ED.VIS.GI ---
HPI HPI - GI History of Present Illness Chief Complaint: Abd Pain Informant: patient Abdominal Pain/Flank Pain Onset: Yesterday Context: Gradual Onset (Couple hours after eating a sandwich) Timing: Continuous Quality: Aching Location: Epigastric (Radiating into mid back) Current Severity: Severe Maximum Severity: Severe Worsened by: Nothing Relieved by: Nothing (Tried Tylenol and ibuprofen) Nausea/Vomiting/Emesis GI Symptom: Negative for Nausea or Vomiting Diarrhea/Melena/Hematochezia GI Symptom: Negative for Diarrhea, Melena or Hematochezia Associated Symptoms Associated Symptoms: Negative for Dysuria, Frequency, Hematuria or Urgency Narrative Narrative: Patient had a laparoscopic cholecystectomy several months ago, he occasionally has some abdominal discomfort after eating certain foods but it is short-lived, and this past night, couple hours after eating a hero sandwich, he started having epigastric pain that became more severe than these past episodes, more persistent, and as the severity built, it started radiating into his mid back which is what the pain is doing now. Denies any nausea or vomiting. No dyspnea or chest discomfort, no fevers or chills, no urinary symptoms. He states this is the same pain that he had just prior to the cholecystectomy. PFSH PFSH Medical History Chest pain Coronary artery disease GERD (gastroesophageal reflux disease) Heart disease History of heart attack HTN (hypertension) Kidney stones Myocardial infarct Smoker Home Medications aspirin 81 mg chewable tablet 81 mg PO DAILY@0800 blood thinner 01/02/16 [History Last Taken 07/19/21] metoprolol tartrate 25 mg tablet 50 mg PO QHS bp 01/02/16 [History Last Taken 07/18/21] pravastatin 20 mg tablet 40 mg PO QHS Check with primary doctor 01/02/16 [History Last Taken 07/18/21] coenzyme Q10 75 mg capsule (Ultra CoQ10) 75 mg PO DAILY supplement 09/10/19 [History Last Taken 07/19/21] evolocumab 140 mg/mL subcutaneous syringe (Repatha Syringe) 140 mg subcut Q2W cholesterol 09/10/19 [History Last Taken 07/16/21] ezetimibe 10 mg tablet (Zetia) 10 mg PO DAILY cholesterol 09/10/19 [History Last Taken 07/19/21] ergocalciferol (vitamin D2) 1,250 mcg (50,000 unit) capsule 5,000 unit PO DAILY supplement 12/09/19 [History Last Taken 07/19/21] metoprolol tartrate 75 mg tablet 75 mg PO BREAKFAST bp 12/09/19 [History Last Taken 07/19/21] omeprazole 20 mg capsule,delayed release 20 mg PO DAILY gerd 08/14/20 [History Last Taken 07/19/21] acetaminophen 650 mg tablet 1,300 mg PO BID pain 07/19/21 [History Last Taken 07/19/21] Allergy/AdvReac Type Severity Reaction Status Date / Time peanut Allergy Anaphylaxis Verified 08/07/21 09:01 Surgical History H/O shoulder replacement History of quadruple bypass Hx of CABG Hx of heart artery stent S/P laparoscopic cholecystectomy Social History Smoking Status: Former smoker ROS ROS ED Constitutional Constitutional ED: Denies chills or fever(s) Eyes Eyes: Denies change in vision or diplopia ENT ENT ED: Denies rhinorrhea or sore throat Cardiovascular Cardiovascular: Denies chest pain or palpitations Respiratory/Chest Respiratory/Chest: Denies cough or dyspnea Gastrointestinal Gastrointestinal: Reports abdominal pain; Denies diarrhea, nausea or vomiting Genitourinary Genitourinary ED: Denies dysuria or hematuria Musculoskeletal Musculoskeletal: Reports back pain; Denies neck pain Integumentary Denies abscess or rash Neurologic Neurologic: Denies headache(s), paresthesias or weakness Psychiatric Psychiatric: Denies anxiety or suicidal thoughts EXAM Physical Exam Const Vital Signs: 10/29/21 05:41 Temperature 96.5 F L Temperature Source Temporal Pulse Rate 67 Respiratory Rate 18 Blood Pressure 137/78 H Blood Pressure Mean 97 Pulse Ox 100 Oxygen Delivery Method Room Air Positive well nourished and well developed Constitutional Narrative: Well-appearing, ambulatory to the room from triage, no distress able to converse without difficulty General Appearance ED: well developed and NAD HEENT Reports moist mucous membranes normocephalic and atraumatic Eyes PERRL and EOMs intact bilaterally Neck full ROM and supple Resp normal respiratory effort and clear to auscultation bilaterally Effort and Inspection: able to speak in complete sentences Cardio regular rate, regular rhythm and no murmurs Rate: Negative for tachycardic GI non-distended GI Narrative: Very tender in the epigastrium without guarding or rebound. No other areas of tenderness. Auscultation: normoactive bowel sounds Palpation: soft Back/Spine no CVA tenderness General Back: other FROM Extremity normal to inspection General Extremety ED: Negative for edema, pulses abnormal or tenderness General Extremity: Negative for edema or pulses abnormal Neuro oriented x3, CN's II-XII intact bilaterally and no sensory deficits noted Sensorium / Orientation: awake and alert Motor Exam: strength 5/5 throughout Psych mental status grossly normal and thought process normal Skin no rashes or lesions noted and no wounds MDM MDM MDM Narrative Medical decision making narrative: Patient with upper abdominal pain after cholecystectomy, unrelenting 9-10 hours after it started. Differential includes GI etiologies including biliary, hepatic, pancreatitis, less likely intrathoracic/cardiac etiologies given the reproducible discomfort in his epigastrium. Initially blood work obtained, he was treated with IV fluids, Zofran, morphine which helped his symptoms. Blood work shows that he does not have acute pancreatitis but his liver enzymes are all elevated including his total bilirubin which is just slightly elevated at 1.2. Given this I think imaging will be indicated and helpful, patient presents when ultrasound is not available, so I think a CT is reasonable, ordered with IV contrast. CT results are noted, which show biliary obstruction with a stone. I discussed the results with Dr. Carvalho who agrees with admitting the patient with n.p.o. status, antibiotics, IV fluids, and he will consult. Patient is doing much better with regards to his symptoms after treatment as above, I discussed with hospitalist and we will start meropenem here in the emergency department. Lab Data Attestation: I reviewed the patient's lab results. Labs: Laboratory Results - last 24 hr 10/29/21 10/29/21 05:47 05:47 WBC 9.2 RBC 4.37 L Hgb 12.4 L Hct 38.4 L MCV 87.9 MCH 28.4 MCHC 32.3 RDW Std Deviation 45.0 H RDW Coeff of Bull 14.0 Plt Count 240 MPV 10.1 Immature Gran % (Auto) 0.400 Neut % (Auto) 75.3 H Lymph % (Auto) 14.3 L [place] % (Auto) 8.8 Eos % (Auto) 1.0 Baso % (Auto) 0.2 Absolute Neuts (auto) 6.9 Absolute Lymphs (auto) 1.31 Nucleated RBC % 0 Sodium 139 Potassium 3.2 L Chloride 104 Carbon Dioxide 30.0 Anion Gap 5 BUN 17 Creatinine 0.66 L Estim Creat Clear Calc 121.36 Est GFR (MDRD) Af Amer 157 Est GFR (MDRD) Non-Af 130 BUN/Creatinine Ratio 25.7 H Glucose 126 H Calcium 9.2 Total Bilirubin 1.20 H AST 420 H ALT 358 H Alkaline Phosphatase 438 H Total Protein 7.5 Albumin 3.5 Globulin 4.0 Albumin/Globulin Ratio 0.9 Lipase 144 Radiography Diagnostic Testing: Clinical Impression(s) from Imaging Studies Abdomen/Pelvis CT 10/29/21 06:21 IMPRESSION: Common bile duct stone with proximal biliary obstruction. The stone does not appear to fill the entire luminal cross-section, which raises suspicion for a second noncalcified stone versus a choledochal cyst. Electronically Signed: Vipin White MD at 6:58 EDT , Discharge Plan Triage Chief Complaint: Abd Pain ED Provider: Lenin Lee Dx/Rx/DC Orders Clinical Impression: Choledocholithiasis with obstruction, Acute epigastric pain, Elevated liver enzymes Prescriptions: No Action Repatha Syringe 140 mg/mL syringe 140 mg SC Q2W ezetimibe [Zetia] 10 mg tablet 10 mg PO DAILY Ultra CoQ10 75 mg capsule 75 mg PO DAILY aspirin 81 MG tablet,chewable 81 mg PO DAILY@0800 metoprolol tartrate 25 MG tablet 50 mg PO QHS pravastatin 20 MG tablet 40 mg PO QHS ergocalciferol (vitamin D2) 1,250 mcg (50,000 unit) capsule 5,000 unit PO DAILY Label Comments: TAKE 1 CAPSULE every week metoprolol tartrate 75 MG tablet 75 mg PO BREAKFAST omeprazole 20 mg Capsule,Delayed Release(Dr/Ec) 20 mg PO DAILY acetaminophen 650 mg Tablet 1,300 mg PO BID Primary Care Provider: Alexey Suárez [facility] - Disposition Disposition: Acute Care Hospital [facility]
[2021-10-29] MEDS: Ondansetron 4 MG/2 ML Vial IV (05:54)
[2021-10-29] MEDS: Morphine 4 MG/ML Syringe IV ×2 (05:54→09:22)
[2021-10-29] MEDS: 0.9% Normal Saline 1,000 ML 125 ML IV ×2 (05:58→15:54)
[2021-10-29 05:59] LABS: Absolute Lymphocyte Count 1.31 X10^3/uL (0.83-4.51); Absolute Neutrophil Count 6.9 X10^3/uL (2.0-7.7); Basophil# 0.02 X10^3/uL; Basophil% 0.2 % (0-1); Eosinophil# 0.09 X10^3/uL; Hematocrit 38.4 % (40-54); Hemoglobin 12.4 g/dL (13.0-16.5); Lymphocyte # 1.31 X10^3/ul (0.83-4.51); Lymphocyte % 14.3 % (19-41); Mean Corp Hgb Conc 32.3 g/dL (32-36); Mean Corpuscular Hgb 28.4 pg (27.0-32.0); Mean Corpuscular Volume 87.9 fL (80-94); Mean Platelet Vol. 10.1 fl (6.2-12.0); Monocyte# 0.81 X10^3/uL; Monocyte% 8.8 % (0-10); NRBC Flagged by Analyzer 0 % (0-5); Neutrophil % 75.3 % (47-70); Platelet Count 240 K/mm3 (150-450); Red Blood Count 4.37 M/mm3 (4.6-6.2); White Blood Count 9.2 K/mm3 (4.4-11.0)
[2021-10-29 06:18] LABS: ALB/GLOB Ratio 0.9 RATIO (0.9-2.4); AST(SGOT) 420 U/L (15-37); Alanine Aminotransfer ALT/SGPT 358 U/L (16-61); Albumin, Serum 3.5 g/dL (3.2-5.0); Alkaline Phosphatase 438 U/L (45-117); Anion Gap 5 (5-15); BUN 17 mg/dL (7-18); BUN/Creat Ratio 25.7 RATIO (10-20); Calcium,Total 9.2 mg/dL (8.5-10.1); Chloride 104 mmol/L (98-107); Creatinine, Serum 0.66 mg/dL (0.70-1.30); EST Glomerular Filtration Rate 130 mL/min (>60); Est Glom Filt Rate - Afr Amer 157 mL/min (>60); Estimated Creatinine Clearance 121.36 ml/min; Glucose 126 mg/dL (74-106); Lipase 144 U/L (73-393); Potassium 3.2 mmol/L (3.5-5.1); Protein, Total 7.5 g/dL (6.4-8.2); Sodium Level 139 mmol/L (136-145)
--- NOTE | 2021-10-29 06:21 | CT_ITS ---
STUDY: CT ABDOMEN AND PELVIS WITH CONTRAST REASON FOR EXAM: Male, 60 years old. Upper abd pain, elevated liver enzymes RADIATION DOSAGE (If Supplied By Facility): CTDIvol = ( 11.09 ) mGy, DLP = ( 960.67 ) mGycm TECHNIQUE: Transaxial images were obtained from the dome of the diaphragm to the symphysis pubis without oral contrast. IV 85mL Isovue-300 was administered. Sagittal and coronal images were reconstructed. Individualized dose optimization techniques were used for this CT. COMPARISON: 07/19/2021 FINDINGS: The visualized lung bases are unremarkable. The visualized portions of the heart are within normal limits. Normal liver. Distal common bile duct stone with intrahepatic and extrahepatic biliary dilation. This stone does not appear to fill the common bile duct lumen. Multiple small gallbladder calculi. Normal spleen. Normal pancreas. Normal bilateral adrenal glands. Normal right kidney. Normal left kidney. Normal visualized stomach. Normal small intestine. Normal colon. The appendix is visualized and appears normal. Normal abdominal aorta. Normal inferior vena cava. Normal retroperitoneum. Normal urinary bladder. Normal visualized prostate gland. Normal abdominal wall. Moderate degenerative change throughout the visualized thoracolumbar spine. CT/Abdomen/Pelvis W IV Cont ONLY IMPRESSION: Common bile duct stone with proximal biliary obstruction. The stone does not appear to fill the entire luminal cross-section, which raises suspicion for a second noncalcified stone versus a choledochal cyst. Electronically Signed: Vipin White MD at 6:58 EDT ,
--- NOTE | 2021-10-29 07:29 | NURSING ---
med surg obs tereletsky choledocholithiasis
[2021-10-29] MEDS: 0.9% Saline Lock 10 ML Syringe IV (09:22)
--- NOTE | 2021-10-29 09:47 | EKG12_ITS ---
Test Reason : PRE-OP Blood Pressure : / mmHG Vent. Rate : 078 BPM Atrial Rate : 078 BPM P-R Int : 162 ms QRS Dur : 096 ms QT Int : 368 ms P-R-T Axes : 050 029 114 degrees QTc Int : 419 ms Normal sinus rhythm Nonspecific T wave abnormality Abnormal ECG When compared with ECG of 19-JUL-2021 08:04, Vent. rate has increased BY 30 BPM Confirmed by FLORA ARMIJO, DALLAS ([id number]), video news editor PASCUAL VILLANUEVA ([id number]) on 10/31/2021 10:16:57 AM Referred By: FRIEND Confirmed By:DALLAS HINES MD
--- NOTE | 2021-10-29 09:51 | CON.PCM_ITS ---
Assessment & Plan Assessment/Plan (1) Choledocholithiasis with obstruction: PLAN: Patient has acute choledocholithiasis on which is causing his pain and also increasing liver function test and liver enzymes. He should undergo ERCP with stone removal and possible stent placement. He was explained alternatives, risk, benefits including not withstanding bleeding, infection, sepsis, perforation, need for emergent surgery and . He will have an ASA of 3. He will also need normal saline IV fluids at 125 cc an hour and antibiotic therapy. HPI Consult Data Date of Consult: 10/29/21 HPI Narrative Reason for Consultation: choledocholithiasis HPI Narrative: SANDRA DARNELL, is a 60 M who presents with acute onset of right upper quadrant pain while at home. Patient is status post cholecystectomy back in June 2021. He occasionally has some abdominal discomfort after eating certain foods but it is short-lived, and this past night, couple hours after eating a hero sandwich, he started having epigastric pain that became more severe than these past episodes, more persistent, and as the severity built, it started radiating into his mid back which is what the pain is doing now.? Denies any nausea or vomiting.? No dyspnea or chest discomfort, no fevers or chills, no urinary symptoms.? He states this is the same pain that he had just prior to the cholecystectomy. He is afebrile and normotensive. His CBC shows a white blood cell count of 9.1, hemoglobin 12.1, platelet count of 297 with a normal MCV. His liver enzymes are elevated with alkaline phosp hatase of 238, AST of 420 ALT of 358 and total bilirubin of 1.2. His blood sugar is 126. He has a past medical history of CAD status post CA x2 and quadruple triple bypass, status post stenting on 81 mg of aspirin. He is not having any chest pain or shortness of breath.All other 16 review of systems are negative except those pertinent positive mentioned HPI. He had a CT scan of the abdomen pelvis in the ED that showed a distal common bile duct stone along with 2-3 other stones and what appears to be due to cystic duct remnant. PFSH Medical History Chest pain Coronary artery disease GERD (gastroesophageal reflux disease) Heart disease High cholesterol History of heart attack History of stress test HTN (hypertension) Kidney stones Myocardial infarct Smoker Home Medications aspirin 81 mg chewable tablet 81 mg PO DAILY@0800 blood thinner 01/02/16 [History Last Taken 07/19/21] metoprolol tartrate 25 mg tablet 50 mg PO QHS bp 01/02/16 [History Last Taken 07/18/21] pravastatin 20 mg tablet 40 mg PO QHS Check with primary doctor 01/02/16 [History Last Taken 07/18/21] coenzyme Q10 75 mg capsule (Ultra CoQ10) 75 mg PO DAILY supplement 09/10/19 [History Last Taken 07/19/21] evolocumab 140 mg/mL subcutaneous syringe (Repatha Syringe) 140 mg subcut Q2W cholesterol 09/10/19 [History Last Taken 1 Week Ago ~10/22/21] ezetimibe 10 mg tablet (Zetia) 10 mg PO DAILY cholesterol 09/10/19 [History Last Taken 07/19/21] ergocalciferol (vitamin D2) 1,250 mcg (50,000 unit) capsule 5,000 unit PO DAILY supplement 12/09/19 [History Last Taken 07/19/21] metoprolol tartrate 75 mg tablet 75 mg PO BREAKFAST bp 12/09/19 [History Last Taken 07/19/21] omeprazole 20 mg capsule,delayed release 20 mg PO DAILY gerd 08/14/20 [History Last Taken 07/19/21] acetaminophen 650 mg tablet 1,300 mg PO BID pain 07/19/21 [History Last Taken 07/19/21] Allergy/AdvReac Type Severity Reaction Status Date / Time peanut Allergy Anaphylaxis Verified 08/07/21 09:01 Surgical History H/O shoulder replacement History of quadruple bypass Hx of CABG Hx of heart artery stent S/P laparoscopic cholecystectomy Social History Smoking Status: Former smoker ROS Review of Systems ROS Unobtainable: other Constitutional Constitutional: Denies fatigue, fever(s), poor appetite, weight gain or weight loss ENT HEENT: Denies mouth lesions Cardiovascular Cardiovascular: Denies abdominal bloating, abdominal edema or abdominal pain Respiratory/Chest Respiratory/Chest: Denies change in mental status, change in phlegm color, chest congestion or chest tightness Gastrointestinal Gastrointestinal: Denies belching, bloating, change in bowel habits, change in stool character, chewing difficulty, coffee ground emesis, constipation, cramping, diarrhea, dyspepsia, dysphagia, early satiety, excessive flatus, fecal incontinence, heartburn, hematemesis, hematochezia, hemorrhoids, loose stools, melena, nausea, odynophagia, rectal bleeding, tenesmus, vomiting or weight ch anges Genitourinary Genitourinary: Denies abdominal discomfort, burning urination or itching Musculoskeletal Musculoskeletal: Reports as per HPI; Denies muscle weakness or myalgias Integumentary Integumentary: Denies jaundice Neurologic Neurologic: Denies lack of coordination or weakness Psychiatric Psychiatric: Denies confusion, depression, memory loss, mood swings, paranoia or suicidal ideation Endocrine Endocrinology: Denies systems reviewed and no addt'l complaints, except as documented Hematologic/Lymphatic Hematologic/Lymphatic: Denies anemia, easy bleeding, easy bruising or lymphadenopathy Allergic/Immunologic Allergic/Immunologic: Denies systems reviewed and no addt'l complaints, except as documented Physical Exam Resp normal respiratory effort Cardio regular rate GI GI Narrative: Abdomen: Soft, mild distended, tender near incision's dressed clean dry and intact, no peritoneal signs, right upper quadrant ESTRELLA serosanguineous Lab / Micro Data Result Diagrams: 10/29/21 05:47 10/29/21 05:47 Labs: Laboratory Results - last 24 hr 10/29/21 05:47: WBC 9.2, RBC 4.37 L, Hgb 12.4 L, Hct 38.4 L, MCV 87.9, MCH 28.4, MCHC 32.3, RDW Std Deviation 45.0 H, RDW Coeff of Bull 14.0, Plt Count 240, MPV 10.1, Immature Gran % (Auto) 0.400, Neut % (Auto) 75.3 H, Lymph % (Auto) 14.3 L, Marion % (Auto) 8.8, Eos % (Auto) 1.0, Baso % (Auto) 0.2, Absolute Neuts (auto) 6.9, Absolute Lymphs (auto) 1.31, Nucleated RBC % 0 10/29/21 05:47: Sodium 139, Potassium 3.2 L, Chloride 104, Carbon Dioxide 30.0, Anion Gap 5, BUN 17, Creatinine 0.66 L, Estim Creat Clear Calc 121.36, Est GFR (MDRD) Af Amer 157, Est GFR (MDRD) Non-Af 130, BUN/Creatinine Ratio 25.7 H, G lucose 126 H, Calcium 9.2, Total Bilirubin 1.20 H, AST 420 H, ALT 358 H, Alkaline Phosphatase 438 H, Total Protein 7.5, Albumin 3.5, Globulin 4.0, Albumin/Globulin Ratio 0.9, Lipase 144 Radiology Impression Abdomen/Pelvis CT 10/29/21 06:21 IMPRESSION: Common bile duct stone with proximal biliary obstruction. The stone does not appear to fill the entire luminal cross-section, which raises suspicion for a second noncalcified stone versus a choledochal cyst. Electronically Signed: Vipin White MD at 6:58 EDT , Charges/Coding Visit Charges Inpatient E&M: 79668 Init Hosp L2
--- NOTE | 2021-10-29 10:24 | HP.PCM.HOS_ITS ---
HPI - General General Date of Admission: 10/29/21 Date of Service: 10/29/21 Chief Complaint: Abdominal pain HPI Narrative SANDRA DARNELL, is a 60 M who presents to the emergency room at [facility] with complaints of mid upper abdominal pain radiating into his mid back area. Patient has a history of cholecystectomy several months ago. Work-up in the emergency room included labs which showed a normal white blood cell count, hemoglobin was 12.4, chemistry profile revealed a sodium of 3.2, patient's liver enzymes were elevated-AST was 420, ALT was 358, alkaline phosphatase was 438, and bilirubin was 1.2. CT of the abdomen and pelvis was obtained which showed common bile duct stone with proximal biliary obstruction, there is also question about a possibility of a second stone. Gastroenterology was contacted, agreed to see the patient in consultation and the patient will be admitted under the hospitalist service for choledocholithiasis. Patient was given IV antibiotics, IV pain medications and fluid. PFSH Medical History Chest pain Coronary artery disease GERD (gastroesophageal reflux disease) Heart disease High cholesterol History of heart attack History of stress test HTN (hypertension) Kidney stones Myocardial infarct Smoker Home Medications aspirin 81 mg chewable tablet 81 mg PO DAILY@0800 blood thinner 01/02/16 [History Last Taken 07/19/21] metoprolol tartrate 25 mg tablet 50 mg PO QHS bp 01/02/16 [History Last Taken 07/18/21] pravastatin 20 mg tablet 40 mg PO QHS Check with primary doctor 01/02/16 [Hist ory Last Taken 07/18/21] coenzyme Q10 75 mg capsule (Ultra CoQ10) 75 mg PO DAILY supplement 09/10/19 [History Last Taken 07/19/21] evolocumab 140 mg/mL subcutaneous syringe (Repatha Syringe) 140 mg subcut Q2W cholesterol 09/10/19 [History Last Taken 1 Week Ago ~10/22/21] ezetimibe 10 mg tablet (Zetia) 10 mg PO DAILY cholesterol 09/10/19 [History Last Taken 07/19/21] ergocalciferol (vitamin D2) 1,250 mcg (50,000 unit) capsule 5,000 unit PO DAILY supplement 12/09/19 [History Last Taken 07/19/21] metoprolol tartrate 75 mg tablet 75 mg PO BREAKFAST bp 12/09/19 [History Last Taken 07/19/21] omeprazole 20 mg capsule,delayed release 20 mg PO DAILY gerd 08/14/20 [History Last Taken 07/19/21] acetaminophen 650 mg tablet 1,300 mg PO BID pain 07/19/21 [History Last Taken 07/19/21] Allergy/AdvReac Type Severity Reaction Status Date / Time peanut Allergy Anaphylaxis Verified 08/07/21 09:01 Surgical History H/O shoulder replacement History of quadruple bypass Hx of CABG Hx of heart artery stent S/P laparoscopic cholecystectomy Social History Smoking Status: Former smoker ROS Constitutional Constitutional: Denies anorexia, change in weight, chills, fever(s), malaise, ni ght sweats or weakness Eyes Eyes: Denies blurry vision, change in vision, discharge from eye(s) or eye pain Cardiovascular Cardiovascular: Denies chest pain, claudication, dyspnea on exertion, edema, li ghtheadedness or palpitations Respiratory/Chest Respiratory/Chest: Denies cough, hemoptysis, productive cough, shortness of breath at rest or shortness of breath with exertion Gastrointestinal Gastrointestinal: Reports abdominal pain; Denies coffee ground emesis, constipation, diarrhea, dyspepsia, hematemesis, hematochezia, melena, nausea or vomiting Genitourinary Genitourinary: Denies dysuria, hematuria, urinary frequency, urinary hesitancy, urinary incontinence or urinary urgency Musculoskeletal Musculoskeletal: Denies back pain, joint pain, joint stiffness, joint swelling, myalgias or neck pain Neurologic Neurologic: Denies abnormal gait, abnormal speech, dizziness, focal weakness, headache(s), loss of vision, numbness, other visual disturbances, paresthesias, syncope or tingling Psychiatric Psychiatric: Denies anxiety, cognitive impairment, depression, irritability, mood swings or suicidal ideation Endocrine Endocrinology: Denies change in body appearance, cold intolerance, excessive sweating, heat intolerance, polydipsia or polyuria Hematologic/Lymphatic Hematologic/Lymphatic: Denies none, anemia, easy bleeding, easy bruising or lymphadenopathy Allergic/Immunologic Allergic/Immunologic: Denies rhinitis, urticaria, eczemia or asthma Vital Signs Vital Signs Vital Signs: 10/29/21 05:41 10/29/21 07:40 10/29/21 08:48 Temperature 96.5 F L 98.9 F 97.9 F Temperature Source Temporal Temporal Oral Pulse Rate 67 78 76 Respiratory Rate 18 14 18 Blood Pressure 137/78 H 135/84 H 139/85 H Blood Pressure Mean 97 101 103 Blood Pressure Source Manual Blood Pressure Position Semi-Fowlers Blood Pressure Location Left Arm Pulse Ox 100 98 99 Oxygen Delivery Method Room Air Room Air Room Air Weight Weight: 81.2 kg Body Mass Index (BMI) 25.7 Physical Exam Const alert, oriented x3, no apparent distress and average body habitus General Appearance: cooperative, well kempt and well developed Orientation / Consciousness: awake, oriented to person, oriented to place and oriented to time HEENT normocephalic, head/scalp atraumatic, hearing grossly normal bilaterally and moist oral mucous membranes Eyes PERRL, EOMs intact bilaterally and conjunctivae normal Neck supple, no JVD, thyroid normal and no carotid bruits General: trachea midline Resp normal respiratory effort, no retractions, no use of accessory muscles and clear to auscultation bilaterally Auscultation: Negative for rales, rhonchi or wheezes Cardio regular rate, regular rhythm, S1 normal heart sound, S2 normal heart sound, no murmurs, no rub and no gallops GI non-distended GI Narrative: Abdomen was tender to palpation in the right upper quadrant and the mid epigastric area, no rebound abdominal tenderness was noted Extremity no clubbing, cyanosis or edema Skin no rashes or lesions noted General Skin Exam: no breakdown Neuro oriented x3, CN's II-XII intact bilaterally, moves all extremities, no focal motor deficits and no sensory deficits noted Sensorium / Orientation: awake and alert Speech: speech normal Psych affect normal Results Lab / Micro Data Result Diagrams: 10/29/21 05:47 10/29/21 05:47 Labs: Laboratory Results - last 24 hr 10/29/21 05:47: WBC 9.2, RBC 4.37 L, Hgb 12.4 L, Hct 38.4 L, MCV 87.9, MCH 28.4, MCHC 32.3, RDW Std Deviation 45.0 H, RDW Coeff of Bull 14.0, Plt Count 240, MPV 10.1, Immature Gran % (Auto) 0.400, Neut % (Auto) 75.3 H, Lymph % (Auto) 14.3 L, Terry % (Auto) 8.8, Eos % (Auto) 1.0, Baso % (Auto) 0.2, Absolute Neuts (auto) 6.9, Absolute Lymphs (auto) 1.31, Nucleated RBC % 0 10/29/21 05:47: Sodium 139, Potassium 3.2 L, Chloride 104, Carbon Dioxide 30.0, Anion Gap 5, BUN 17, Creatinine 0.66 L, Estim Creat Clear Calc 121.36, Est GFR (MDRD) Af Amer 157, Est GFR (MDRD) Non-Af 130, BUN/Creatinine Ratio 25.7 H, Glucose 126 H, Calcium 9.2, Total Bilirubin 1.20 H, AST 420 H, ALT 358 H, Alkaline Phosphatase 438 H, Total Protein 7.5, Albumin 3.5, Globulin 4.0, Albumin/Globulin Ratio 0.9, Lipase 144 Radiology Impression Abdomen/Pelvis CT 10/29/21 06:21 IMPRESSION: Common bile duct stone with proximal biliary obstruction. The stone does not appear to fill the entire luminal cross-section, which raises suspicion for a second noncalcified stone versus a choledochal cyst. Electronically Signed: Vipin White MD at 6:58 EDT , Assessment & Plan Assessment/Plan (1) Choledocholithiasis with obstruction: PLAN: Plan 1. Choledocholithiasis with proximal biliary obstruction-patient will be admitted to [facility] 3, he will be given IV antibiotics, he will be seen in consultation by gastroenterology and he will undergo an ERCP. #2 hyperlipidemia-patient currently takes a statin, Zetia, and a subcutaneous hyperlipidemia medication, oral medications will be continued while he is here #3 coronary artery disease-patient remains on his oral lipid medications and metoprolol here #4 essential hypertension-patient is on metoprolol #5 hypokalemia-patient's potassium will be monitored. #6 elevated liver enzymes secondary to choledocholithiasis-labs will be monitored Charges/Coding Visit Charges Inpatient E&M: 62029 Init Hosp L3 OBSV E&M: 28565 Initial observation care L3
--- NOTE | 2021-10-29 11:17 | NURSING ---
Off unit at this time for ERCP
--- NOTE | 2021-10-29 11:25 | RAD_ITS ---
EXAM: [place] CHOLANGIOGRAPHY AND/OR PANCREATOGRAPHY CLINICAL INDICATION: ERCP TECHNIQUE: Fluoroscopic cholangiogram and/or pancreatography of the right upper quadrant. Fluoroscopic guidance was provided by a physician. This report was created using [employer] report Genome technology. COMPARISON: None. FINDINGS: Guidewires were placed into the pancreatic duct as well as within the common bile duct during endoscopic examination. Contrast injected into the biliary tree demonstrates filling defects within the gallbladder and common bile duct consistent with stones. Subsequent placement of an endobiliary stent catheter. Please see the surgical report for further information related to the procedure. 10 fluoroscopic images obtained. 52 seconds of fluoroscopy time. Total radiation dose 15.1m Gy. RAD/ERCP Biliary Only IMPRESSION: As above. Electronically Signed: Karl Chamberlain MD at 7:41 EDT ,
--- NOTE | 2021-10-29 14:21 | OP.ERCP_ITS ---
Patient Name: Bigg Ramon Procedure Date: 10/29/2021 11:10 AM Date of : 1960 Age: 60 Procedure: ERCP Indications: Bile duct stone(s), Suspected ascending cholangitis, Jaundice, Elevated liver enzymes Providers: Yasmani Carvalho DO Medicines: Monitored Anesthesia Care Patient Profile: This is a 60 year old male. Refer to note in patient chart for documentation of history and physical. Patient has symptoms. Is status post within the past month. This patient has no history of previous ERCP. Complications: No immediate complications. Procedure: Pre-Anesthesia Assessment: - Prior to the procedure, a History and Physical was performed, and patient medications and allergies were reviewed. The risks and benefits of the procedure and the sedation options and risks were discussed with the patient. All questions were answered and informed consent was obtained. Patient identification and proposed procedure were verified by the physician in the pre-procedure area. Mental Status Examination: alert and oriented. Airway Examination: normal oropharyngeal airway and neck mobility. Respiratory Examination: clear to auscultation. CV Examination: normal. Prophylactic Antibiotics: The patient does not require prophylactic antibiotics. Prior Anticoagulants: The patient has taken no previous anticoagulant or antiplatelet agents. After reviewing the risks and benefits, the patient was deemed in satisfactory condition to undergo the procedure. The anesthesia plan was to use moderate sedation / analgesia (conscious sedation). Immediately prior to administration of medications, the patient was re-assessed for adequacy to receive sedatives. The heart rate, respiratory rate, oxygen saturations, blood pressure, adequacy of pulmonary ventilation, and response to care were monitored throughout the procedure. The physical status of the patient was re-assessed after the procedure. After obtaining informed consent, the scope was passed under direct vision. Throughout the procedure, the patient's blood pressure, pulse, and oxygen saturations were monitored continuously. The Colonoscope was introduced through the mouth, and advanced to the duodenum and used to inject contrast into the bile duct and ventral pancreatic duct. The ERCP was accomplished without difficulty. The patient tolerated the procedure well. Scope In: 11:50:30 AM Scope Out: 2:01:06 PM Total Procedure Duration Time 2 hours 10 minutes 36 seconds Findings: The director internal communications film was normal. The esophagus was successfully intubated under direct vision. The scope was advanced to a normal major papilla in the descending duodenum without detailed examination of the pharynx, larynx and associated structures, and upper GI tract. The upper GI tract was grossly normal. The bile duct was deeply cannulated with the short-nosed traction sphincterotome. Contrast was injected. I personally interpreted the bile duct images. There was brisk flow of contrast through the ducts. Opacification of the main bile duct was successful. The maximum diameter of the ducts was 9 mm. The middle third of the main bile duct contained three stones, the largest of which was 5 mm in diameter. The upper third of the main bile duct was diffusely dilated, with a stone causing an obstruction. The largest diameter was 10 mm. A cholecystectomy had been performed. Choledocholithiasis was found in a common bile duct and the cystic duct remnant.A straight Roadrunner wire was passed into the biliary tree. A 5 mm biliary sphincterotomy was made with a traction (standard) sphincterotome using ERBE electrocautery. There was no post-sphincterotomy bleeding. The biliary tree was swept with a 15 mm balloon starting at the bifurcation. Three stones were removed. Three stones remained. Dilation of the common bile duct with a 6-7-8 mm balloon (to a maximum balloon size of 6 mm) dilator was successful. One 10 Fr by 7 cm temporary stent was placed 5 cm into the common bile duct. Bile and pus flowed through the stent. The stent was in good position. A 0.035 inch x 260 cm angled Hydra Jagwire was passed into the ventral pancreatic duct. One 5 Fr by 5 cm temporary stent with a single internal pigtail was placed 5 cm into the ventral pancreatic duct. Clear fluid flowed through the stent. The stent was in good position. Impression: - The upper third of the main bile duct was dilated, with a stone causing an obstruction. - The patient has had a cholecystectomy. - Choledocholithiasis was found. Partial removal was accomplished with biliary sphincterotomy; a stent was inserted. - A biliary sphincterotomy was performed. - The biliary tree was swept. - Common bile duct was successfully dilated. - One temporary stent was placed into the common bile duct. Recommendation: Repeat ERCP with spyglass and lithotripsy due to the location of the stones and the remnant cystic duct and multiple calcified common bile duct stones. Procedure Code(s): --- Professional --- 87834, Endoscopic retrograde cholangiopancreatography (ERCP); with placement of endoscopic stent into biliary or pancreatic duct, including pre- and post-dilation and guide wire passage, when performed, including sphincterotomy, when performed, each stent [id number], 59, Endoscopic retrograde cholangiopancreatography (ERCP); with placement of endoscopic stent into biliary or pancreatic duct, including pre- and post-dilation and guide wire passage, when performed, including sphincterotomy, when performed, each stent 08321, Endoscopic retrograde cholangiopancreatography (ERCP); with removal of calculi/debris from biliary/pancreatic duct(s) CPT copyright 2017 [employer]. All rights reserved. The codes documented in this report are preliminary and upon transportation worker review may be revised to meet current compliance requirements. Yasmani Carvalho DO 10/29/2021 2:20:54 PM This report has been signed electronically. Number of Addenda: 1 Note Initiated On: 10/29/2021 11:10 AM Addendum Number: 1 Addendum Date: 01/03/2022 6:01:40 AM Yasmani Carvalho DO 01/03/2022 6:02:29 AM
--- NOTE | 2021-10-29 14:22 | OP.CCLET_ITS ---
01/03/2022 Alexey Suárez [address] [place] [address] Re : ERCP procedure for Bigg Tristen Dear Dr. Suárez This procedure was performed on Friday, October 29, 2021. My impressions and recommendations are as follows: Impressions : - The upper third of the main bile duct was dilated, with a stone causing an obstruction. - The patient has had a cholecystectomy. - Choledocholithiasis was found. Partial removal was accomplished with biliary sphincterotomy; a stent was inserted. - A biliary sphincterotomy was performed. - The biliary tree was swept. - Common bile duct was successfully dilated. - One temporary stent was placed into the common bile duct. Recommendations : Repeat ERCP with spyglass and lithotripsy due to the location of the stones and the remnant cystic duct and multiple calcified common bile duct stones. My findings are described in the full procedure note, which is enclosed. If I can be of further assistance, please feel free to contact me at . Sincerely, Yasmani Cavralho DO 10/29/2021 2:20:54 PM This report has been signed electronically.
[2021-10-29] MEDS: BENZOCAINE/MENTHOL 1 LOZENGE MUCOUS MEM ×2 (17:23→20:23)
[2021-10-29] MEDS: Pravastatin 40 MG Tablet PO (21:28)
[2021-10-29] MEDS: Heparin Injection (Vial) 5,000 UNIT/ML VIAL 5000 UNIT SC (21:28)
[2021-10-29] MEDS: Metoprolol Tartrate 50 MG Tablet PO (21:28)
[2021-10-30] VITALS (11 sets, daily range): BP systolic 109–139; BP diastolic 64–85; PULSE 61–92; RESP 12–18; TEMP 36.6–36.9; O2SAT 95–100; BMI 25.7
--- NOTE | 2021-10-30 | TISS_PTH ---
PATIENT: SANDRA DARNELL LOC: MS3 U#:[id number] AGE/SX: 60/M [place] [facility] [place]: Dr. Ender Andrews DO : 1960 BED: 1 DIS: 10/31/2021 SPEC #: [id number] RECD: 10/30/21 13:56 STATUS: ISATU RERenee #: [id number] SYLVAIN: 10/30/21 00:[address]: Yasmani Carvalho DEPT: SURGICAL PATHOLOGY RECD BY: Juan Dorsey ENTERED: 10/31/21 08:55 SP TYPE: Tissue Bx OTHR DR: DO Dr. Alexey Dee MD Dr. Mark Tereletsky, DO Dr. Yasmani Carvalho DO Tissues: Bile duct, NOS Procedures: Surgery Specimen Level IV Comments: @ Ordering doctor for SUIV edited from to @ by JERI at 10/31/21 1336 @ Submitting doctor edited from to @ by CAMERONOD at 10/31/21 1336 HEADER OPERATION: ERCP, Spy Glass lithotripsy, stone removal PRE-OP DIAGNOSIS: Choledocholithiasis with obstruction TISSUE SUBMITTED: Bile duct biopsy (taken with Spy Bite) MICROSCOPIC DIAGNOSIS Bile duct, biopsy: Fragments of detached benign glandular epithelium. Fibrinopurulent material. AM:jace 11/01/2021 MICROSCOPIC DESCRIPTION Slides are reviewed. GROSS DESCRIPTION Received in fixative is one container labeled with the patient's name and designated bile duct biopsy taken with Spy Bite. The specimen consists of multiple irregular fragments of light murray soft tissue that in aggregate measure 0.3 x 0.2 x <0.1 cm. The specimen is totally submitted in one cassette. / SJ:jace 10/31/2021 TC:2 CPT: 19448
[2021-10-30] MEDS: BENZOCAINE/MENTHOL 1 LOZENGE MUCOUS MEM (00:27)
[2021-10-30] MEDS: Ondansetron 4 MG/2 ML Vial IV (00:27)
[2021-10-30] MEDS: 0.9% Normal Saline 1,000 ML 125 ML IV ×4 (00:27→23:07)
[2021-10-30 06:09] LABS: Absolute Lymphocyte Count 1.19 X10^3/uL (0.83-4.51); Absolute Neutrophil Count 5.5 X10^3/uL (2.0-7.7); Basophil# 0.02 X10^3/uL; Basophil% 0.3 % (0-1); Eosinophils% 1.3 % (0-5); Hematocrit 32.8 % (40-54); Hemoglobin 10.9 g/dL (13.0-16.5); Lymphocyte # 1.19 X10^3/ul (0.83-4.51); Lymphocyte % 15.4 % (19-41); Mean Corp Hgb Conc 33.2 g/dL (32-36); Mean Corpuscular Hgb 29.5 pg (27.0-32.0); Mean Corpuscular Volume 88.6 fL (80-94); Mean Platelet Vol. 10.6 fl (6.2-12.0); Monocyte# 0.87 X10^3/uL; Monocyte% 11.3 % (0-10); NRBC Flagged by Analyzer 0 % (0-5); Neutrophil % 71.3 % (47-70); Platelet Count 204 K/mm3 (150-450); RBC Distribution Width CV 14.4 % (11.6-14.6); RBC Distribution Width SD 46.5 fl (35.1-43.9); White Blood Count 7.7 K/mm3 (4.4-11.0)
[2021-10-30 06:39] LABS: Anion Gap 3 (5-15); BUN 12 mg/dL (7-18); BUN/Creat Ratio 22.7 RATIO (10-20); Calcium,Total 8.2 mg/dL (8.5-10.1); Chloride 110 mmol/L (98-107); Creatinine, Serum 0.53 mg/dL (0.70-1.30); EST Glomerular Filtration Rate 168 mL/min (>60); Est Glom Filt Rate - Afr Amer 204 mL/min (>60); Estimated Creatinine Clearance 151.13 ml/min; Glucose 99 mg/dL (74-106); Potassium 3.5 mmol/L (3.5-5.1); Sodium Level 140 mmol/L (136-145)
--- NOTE | 2021-10-30 08:48 | PN.HOSP_ITS ---
Subjective Subjective Faint RUQ abdominal pain. Much improved overall. Objective Data Objective Data Vital Signs: Vital Signs Temp Pulse Resp BP Pulse Ox O2 Del Method 36.7 C 61 18 114/71 97 Room Air 10/30/21 08:00 10/30/21 08:00 10/30/21 08:00 10/30/21 08:00 10/30/21 08:00 10/30/21 08:00 Oxygen Delivery Method Room Air Weight: 81.2 kg Body Mass Index (BMI) 25.7 Intake & Output: Intake and Output for Last 24 Hours 10/28/21 10/29/21 10/30/21 23:59 23:59 23:59 Intake Total 1382.92 / 1782.92 2391.25 / 2391.25 Output Total Balance 1382.92 / 1780.92 2389.25 / 2389.25 Lab / Micro Data Result Diagrams: 10/30/21 05:48 10/30/21 05:48 Labs: Laboratory Results - last 24 hr 10/30/21 05:48: WBC 7.7, RBC 3.70 L, Hgb 10.9 L, Hct 32.8 L, MCV 88.6, MCH 29.5, MCHC 33.2, RDW Std Deviation 46.5 H, RDW Coeff of Bull 14.4, Plt Count 204, MPV 10.6, Immature Gran % (Auto) 0.400, Neut % (Auto) 71.3 H, Lymph % (Auto) 15.4 L, [place] % (Auto) 11.3 H, Eos % (Auto) 1.3, Baso % (Auto) 0.3, Absolute Neuts (auto) 5.5, Absolute Lymphs (auto) 1.19, Nucleated RBC % 0 10/30/21 05:48: Sodium 140, Potassium 3.5, Chloride 110 H, Carbon Dioxide 27.0, Anion Gap 3 L, BUN 12, Creatinine 0.53 L, Estim Creat Clear Calc 151.13, Est GFR (MDRD) Af Amer 204, Est GFR (MDRD) Non-Af 168, BUN/Creatinine Ratio 22.7 H, Glucose 99, Calcium 8.2 L Micro: Microbiology 10/29/21 09:40 Nasal Secretion SARS-CoV-2 Antigen (Rapid) - Final Physical Exam Const alert and no apparent distress Resp normal respiratory effort, no retractions, no use of accessory muscles and clear to auscultation bilaterally Cardio regular rate, regular rhythm, S1 normal heart sound and S2 normal heart sound GI normal to inspection, nondistended, normoactive bowel sounds, soft to palpation, non-tender and non-distended Neuro oriented x3 Assessment & Plan Assessment/Plan (1) Choledocholithiasis with obstruction: (2) Cholangitis: PLAN: Plan 1. Choledocholithiasis with proximal biliary obstruction s/p cholecystectomy on Meropenem ERCP 10/29 w partial removal with biliary sphincterotomy and stent. ERCP 10/30: lithotripsy performed. remainder of stones removed. pus in bile duct. Repeat ERCP w spyglass and lithotripsy 2. cholangitis 2/2 above on [address]openem DW Dr[address] Carvalho, who recommends observe overnight then complete 14 days of ciprofloxacin and metronidazole 3. hyperlipidemia-patient currently takes a statin, Zetia, and a subcutaneous hyperlipidemia medication, oral medications will be continued while he is here 4. coronary artery disease-patient remains on his oral lipid medications and metoprolol here 5. essential hypertension-patient is on metoprolol 6. hypokalemia-patient's potassium will be monitored. 7. elevated liver enzymes secondary to choledocholithiasis-labs will be monitored Charges/Coding Visit Charges Inpatient E&M: 13932 Subs Hosp L2
--- NOTE | 2021-10-30 10:45 | RAD_ITS ---
INDICATION: ERCP EXAMINATION/TECHNIQUE: X-RAY - FL ERCP Biliary Ductal System COMPARISON: None. FLUOROSCOPY TIME: 2:33 minutes/seconds. FINDINGS: 16 spot fluoroscopic images were obtained intraoperatively. Images demonstrate the ERCP probe, wire advancement, contrast injection, balloon dilation and stent deployment. No radiologist was present for the procedure, please refer to operative report for details. RAD/ERCP Biliary Only IMPRESSION: Please refer to operative report for details. Electronically Signed: Tre Mendes MD at 14:03 EDT ,
[2021-10-30] MEDS: Lactated Ringers 1,000 ML 15 ML IV (11:30)
--- NOTE | 2021-10-30 12:08 | OP.CCLET_ITS ---
10/30/2021 Alexey Suárez [address] [place] [address] Re : ERCP procedure for Bigg Ramon Dear Dr. Suárez This procedure was performed on Saturday, October 30, 2021. My impressions and recommendations are as follows: Impressions : - Pus was visualized via SpyGlass in the biliary tract. - A large amount of a trichobezoar in the stomach. - Friable duodenal mucosa. - Multiple non-obstructing non-bleeding duodenal ulcers with no stigmata of bleeding. Stress induced etiology. - The entire main bile duct was dilated, with a stone causing an obstruction. - The patient has had a cholecystectomy. - Choledocholithiasis was found. Complete removal was accomplished by biliary sphincterotomy and balloon extraction. - A biliary sphincterotomy was performed. - The biliary tree was swept. - Biopsy was performed at the hepatic duct bifurcation. - One stent was exchanged in the biliary tree. - Common bile duct was successfully dilated. - Lithotripsy was successful. - The biliary tree was swept. Recommendations : My findings are described in the full procedure note, which is enclosed. If I can be of further assistance, please feel free to contact me at . Sincerely, Yasmani Carvalho, 10/30/2021 12:08:19 PM This report has been signed electronically.
--- NOTE | 2021-10-30 12:08 | OP.ERCP_ITS ---
Patient Name: Bigg Ramon Procedure Date: 10/30/2021 9:00 AM Date of : 1960 Age: 60 Procedure: ERCP Indications: Common bile duct stone(s) Providers: Yasmani Carvalho DO Medicines: Monitored Anesthesia Care Patient Profile: This is a 60 year old male. Refer to note in patient chart for documentation of history and physical. Patient has symptoms of acute right upper quadrant abdominal pain and acute jaundice. He is status post colonoscopy for polyp removal within the past month. He is status post ERCP for stent and ERCP for stone removal recently. Complications: No immediate complications. Procedure: Pre-Anesthesia Assessment: - Prior to the procedure, a History and Physical was performed, and patient medications and allergies were reviewed. The patient is competent. The risks and benefits of the procedure and the sedation options and risks were discussed with the patient. All questions were answered and informed consent was obtained. Patient identification and proposed procedure were verified by the physician in the pre-procedure area. Mental Status Examination: alert and oriented. Airway Examination: normal oropharyngeal airway and neck mobility. Respiratory Examination: clear to auscultation. CV Examination: normal. Prophylactic Antibiotics: The patient does not require prophylactic antibiotics. Prior Anticoagulants: The patient has taken no previous anticoagulant or antiplatelet agents. After reviewing the risks and benefits, the patient was deemed in satisfactory condition to undergo the procedure. The anesthesia plan was to use moderate sedation / analgesia (conscious sedation). Immediately prior to administration of medications, the patient was re-assessed for adequacy to receive sedatives. The heart rate, respiratory rate, oxygen saturations, blood pressure, adequacy of pulmonary ventilation, and response to care were monitored throughout the procedure. The physical status of the patient was re-assessed after the procedure. After obtaining informed consent, the scope was passed under direct vision. Throughout the procedure, the patient's blood pressure, pulse, and oxygen saturations were monitored continuously. The Duodenoscope was introduced through the mouth, and advanced to the duodenum and used for direct visualization of the bile duct. The ERCP was accomplished without difficulty. The patient tolerated the procedure well. Scope In: 10:47:00 AM Scope Out: 11:53:05 AM Total Procedure Duration Time 1 hour 6 minutes 5 seconds Findings: A biliary stent was visible on the canvas baster jumpbasting film. The esophagus was successfully intubated under direct vision. The scope was advanced to a normal major papilla in the descending duodenum without detailed examination of the pharynx, larynx and associated structures, and upper GI tract. The upper GI tract was grossly normal. The bile duct was deeply cannulated with the short-nosed traction sphincterotome. Contrast was injected. I personally interpreted the bile duct images. There was brisk flow of contrast through the ducts. Opacification of the entire biliary tree except for the cystic duct and gallbladder was successful. The maximum diameter of the ducts was 10 mm. The upper third of the main bile duct contained three stones, the largest of which was 6 mm in diameter. The main bile duct was diffusely dilated, with a stone causing an obstruction. The largest diameter was 10 mm. A cholecystectomy had been performed. Placement of a 0.035 inch x 260 cm angled stiff Hydra Jagwire into the biliary tree was attempted. This passed successfully. A 5 mm biliary sphincterotomy was made with a traction (standard) sphincterotome using ERBE electrocautery. There was no post-sphincterotomy bleeding. The biliary tree was swept with an 18 mm balloon starting at the bifurcation. Sludge was swept from the duct. All stones were removed. The hepatic duct bifurcation was biopsied with a cold forceps for histology. The bile duct was explored endoscopically using the SpCourseloadlass direct visualization system. The SpyScope was advanced to the right intrahepatic duct(s). Visibility with the scope was excellent. Pus was found in the biliary system. The biliary tree contained one temporary stent. This was found to be visibly patent. The stent was removed using a snare. It was shown to be patent via the water column test. A 10 Fr by 7 cm temporary stent was placed 5 cm into the biliary tree. Clear fluid flowed through the stent. The stent was in good position. Dilation of the common bile duct with a 6-7-8 mm balloon (to a maximum balloon size of 8 mm) dilator was successful. The upper GI tract was traversed under direct vision without detailed examination. A large amount of a trichobezoar was found in the gastric body. Diffuse moderately friable mucosa without active bleeding was found in the duodenal bulb, in the first portion of the duodenum and in the second portion of the duodenum. Many non-obstructing non-bleeding superficial duodenal ulcers with no stigmata of bleeding were found in the first portion of the duodenum. The largest lesion was 3 mm in largest dimension. Electrohydraulic lithotripsy was successful. The biliary tree was swept with an 18 mm balloon starting at the bifurcation. Sludge was swept from the duct. All stones were removed. Impression: - Pus was visualized via SpyGlass in the biliary tract. - A large amount of a trichobezoar in the stomach. - Friable duodenal mucosa. - Multiple non-obstructing non-bleeding duodenal ulcers with no stigmata of bleeding. Stress induced etiology. - The entire main bile duct was dilated, with a stone causing an obstruction. - The patient has had a cholecystectomy. - Choledocholithiasis was found. Complete removal was accomplished by biliary sphincterotomy and balloon extraction. - A biliary sphincterotomy was performed. - The biliary tree was swept. - Biopsy was performed at the hepatic duct bifurcation. - One stent was exchanged in the biliary tree. - Common bile duct was successfully dilated. - Lithotripsy was successful. - The biliary tree was swept. Procedure Code(s): --- Professional --- 04279, Endoscopic retrograde cholangiopancreatography (ERCP); with removal and exchange of stent(s), biliary or pancreatic duct, including pre- and post-dilation and guide wire passage, when performed, including sphincterotomy, when performed, each stent exchanged 90711, 51, Endoscopic retrograde cholangiopancreatography (ERCP); with destruction of calculi, any method (eg, mechanical, electrohydraulic, lithotripsy) 93212, 59, Endoscopic retrograde cholangiopancreatography (ERCP); with biopsy, single or multiple 97753, Endoscopic cannulation of papilla with direct visualization of pancreatic/common bile duct(s) (List separately in addition to code(s) for primary procedure) 96684, 26, Endoscopic catheterization of the biliary ductal system, radiological supervision and interpretation CPT copyright 2017 [employer]. All rights reserved. The codes documented in this report are preliminary and upon outdoor studies professor review may be revised to meet current compliance requirements. Yasmani Carvalho DO 10/30/2021 12:08:19 PM This report has been signed electronically. Number of Addenda: 0 Note Initiated On: 10/30/2021 9:00 AM
[2021-10-30] MEDS: Metoprolol Tartrate 25 MG Tablet 75 MG PO (13:26)
[2021-10-30] MEDS: Aspirin 81 MG TAB.CHEW PO (13:26)
[2021-10-30] MEDS: Heparin Injection (Vial) 5,000 UNIT/ML VIAL 5000 UNIT SC ×2 (13:30→21:43)
[2021-10-30] MEDS: Pantoprazole Sodium 20 MG Tablet PO (13:30)
[2021-10-30] MEDS: Ezetimibe 10 MG Tablet PO (13:30)
--- NOTE | 2021-10-30 14:10 | CASEMGMT ---
ALBERTO ROWLAND Assessment: Face to Face with pt for initial transition planning/care coordination assessment. RN JANETT introduced self and role at [facility], pt voices understanding and consents to assessment. Pt is A/O x4 and answers all questions appropriately at this time. Pt lying in bed in no distress with nurse at bedside. Care providers, pharmacy, and demographics verified/updated. Admitting Dx: choledocholithiasis PCP: Jose Armando Specialists: Devaughn cardio; zack Fuentes Preferred Pharmacy: [facility] Insurance: [facility] Prescription Benefit: yes LW/HPOA: Pt denies having a LW/DPOA and denies need for info regarding AD. LNOK: Josefa Ramon, exwife Living Arrangements: Pt lives alone in a single story house with 1 step to enter. Pt reports he is I in ADL's and denies concerns at home. Transportation: Pt drives self and denies concerns with transportation. DME/HHC/SNF: Pt denies having any DME in the home, previous HHC or SNF stays. Pt states no concerns with going home at time of dc. Pt states no further concerns/needs. CM to follow. Advised pt to ask CM if any further question/concerns/needs arise, voices understanding. Pt Goal: Home Plan: Home
[2021-10-30] MEDS: Pravastatin 40 MG Tablet PO (21:42)
[2021-10-30] MEDS: Metoprolol Tartrate 50 MG Tablet PO (21:43)
[2021-10-31 04:00] VITALS: BP 120/71; PULSE 68; RESP 16; TEMP 36.6; O2SAT 99
[2021-10-31 06:14] LABS: ALB/GLOB Ratio 0.6 RATIO (0.9-2.4); AST(SGOT) 73 U/L (15-37); Alanine Aminotransfer ALT/SGPT 145 U/L (16-61); Albumin, Serum 2.2 g/dL (3.2-5.0); Alkaline Phosphatase 361 U/L (45-117); Anion Gap 4 (5-15); BUN 9 mg/dL (7-18); BUN/Creat Ratio 16.6 RATIO (10-20); Calcium,Total 7.8 mg/dL (8.5-10.1); Chloride 112 mmol/L (98-107); Creatinine, Serum 0.54 mg/dL (0.70-1.30); EST Glomerular Filtration Rate 164 mL/min (>60); Est Glom Filt Rate - Afr Amer 198 mL/min (>60); Estimated Creatinine Clearance 148.33 ml/min; Globulin 3.5 g/dL (2.2-4.2); Glucose 127 mg/dL (74-106); Potassium 3.2 mmol/L (3.5-5.1); Protein, Total 5.7 g/dL (6.4-8.2); Sodium Level 140 mmol/L (136-145)
[2021-10-31] MEDS: 0.9% Normal Saline 1,000 ML 125 ML IV (06:15)
[2021-10-31 08:23] VITALS: BP 138/74; PULSE 60; RESP 18; TEMP 36.6; O2SAT 100
[2021-10-31 08:25] VITALS: O2SAT 100
[2021-10-31 09:11] VITALS: PULSE 60
[2021-10-31] MEDS: Aspirin 81 MG TAB.CHEW PO (09:11)
[2021-10-31] MEDS: Metoprolol Tartrate 25 MG Tablet 75 MG PO (09:11)
[2021-10-31] MEDS: Heparin Injection (Vial) 5,000 UNIT/ML VIAL 5000 UNIT SC (09:11)
[2021-10-31] MEDS: Pantoprazole Sodium 20 MG Tablet PO (09:11)
[2021-10-31] MEDS: Ezetimibe 10 MG Tablet PO (09:12)
--- NOTE | 2021-10-31 09:50 | DCINST_ITS ---
Discharge Instructions Diet Discharge Diet: No restrictions Dressing / Incision Call your doctor if you observe: Fever of 101 or Higher and - (worsening abdominal pain) Follow Up Care Test Results: Test results from this visit will be discussed in further detail at your follow- up appointment, if applicable. Discharge Plan Admission Admit Date/Time: 10/29/21 14:33 Primary Reason for Your Visit: choledocholithiasis. cholangitis Attending Provider: Ender Andrews Primary Care Provider: Alexey Suárez Consulting Providers: Yasmani Carvalho ; Alexey Beckman Discharge Orders/Prescriptions Prescriptions: New ciprofloxacin HCl 500 mg tablet 500 mg PO BID Qty: 22 0RF metronidazole 500 mg tablet 500 mg PO Q8H Qty: 33 0RF Continued Repatha Syringe 140 mg/mL syringe 140 mg SC Q2W ezetimibe [Zetia] 10 mg tablet 10 mg PO DAILY Ultra CoQ10 75 mg capsule 75 mg PO DAILY aspirin 81 MG tablet,chewable 81 mg PO DAILY@0800 metoprolol tartrate 25 MG tablet 50 mg PO QHS pravastatin 20 MG tablet 40 mg PO QHS ergocalciferol (vitamin D2) 1,250 mcg (50,000 unit) capsule 5,000 unit PO DAILY Label Comments: TAKE 1 CAPSULE every week metoprolol tartrate 75 MG tablet 75 mg PO BREAKFAST omeprazole 20 mg Capsule,Delayed Release(Dr/Ec) 20 mg PO DAILY acetaminophen 650 mg Tablet 1,300 mg PO BID Referrals / Follow Up: Alexey Suárez MD [Primary Care Provider] - Within 2 Weeks Yasmani Carvalho DO [Med Staff - Active Staff] - Within 1 Month [facility] [[facility]-STAFF] - Disposition Disposition (needs filled in before D/C Order can be placed): Home, Self Care
--- NOTE | 2021-10-31 09:56 | DS.PCM_ITS ---
Providers Date of Admission: 10/29/21 Date of Discharge: 10/31/21 Primary Care Physician: Dr. Alexey Suárez MD Consultations 10/29/21 08:11 Consult: Gastroenterology Routine Consulting Provider: Yasmani Carvalho Reason for Consult: choledocolithiasis EMERGENT Consult: No MD Notified: Yes Date Notified: 10/29/21 Time Notified: 07:39 Method of Notification: Verbal Reason For Visit: CHOLEDOCHOLITHIASIS Diagnosis Discharge Diagnosis (1) Choledocholithiasis with obstruction: Status: Acute Code(s): K80.51 - Calculus of bile duct without cholangitis or cholecystitis with obstruction (2) Cholangitis: Status: Acute Code(s): K83.09 - Other cholangitis Plan 1. Choledocholithiasis with proximal biliary obstruction s/p cholecystectomy on Meropenem ERCP 10/29 w partial removal with biliary sphincterotomy and stent. ERCP 10/30: lithotripsy performed. remainder of stones removed. pus in bile duct. 2. cholangitis 2/2 above on meropenem DW Dr[address] Carvalho, who recommends observe overnight then complete 14 days of ciprofloxacin and metronidazole 3. hyperlipidemia-patient currently takes a statin, Zetia, and a subcutaneous hyperlipidemia medication, oral medications will be continued while he is here 4. coronary artery disease-patient remains on his oral lipid medications and metoprolol here 5. essential hypertension-patient is on metoprolol 6. hypokalemia-patient's potassium will be monitored. 7. elevated liver enzymes secondary to choledocholithiasis- Medications at Discharge Home Medications aspirin 81 mg chewable tablet 81 mg PO DAILY@0800 blood thinner 01/02/16 metoprolol tartrate 25 mg tablet 50 mg PO QHS bp 01/02/16 pravastatin 20 mg tablet 40 mg PO QHS Check with primary doctor 01/02/16 coenzyme Q10 75 mg capsule (Ultra CoQ10) 75 mg PO DAILY supplement 09/10/19 evolocumab 140 mg/mL subcutaneous syringe (Repatha Syringe) 140 mg subcut Q2W cholesterol 09/10/19 ezetimibe 10 mg tablet (Zetia) 10 mg PO DAILY cholesterol 09/10/19 ergocalciferol (vitamin D2) 1,250 mcg (50,000 unit) capsule 5,000 unit PO DAILY supplement 12/09/19 metoprolol tartrate 75 mg tablet 75 mg PO BREAKFAST bp 12/09/19 omeprazole 20 mg capsule,delayed release 20 mg PO DAILY gerd 08/14/20 acetaminophen 650 mg tablet 1,300 mg PO BID pain 07/19/21 ciprofloxacin HCl 500 mg tablet 500 mg PO BID #22 tabs 10/31/21 metronidazole 500 mg tablet 500 mg PO Q8H #33 tabs 10/31/21 Hospital Course Operations None and ERCP Summary of Care Provided Minutes Spent on Discharge: 32 Weight / BMI Weight Weight: 81.2 kg Body Mass Index (BMI) 25.7 ABG / Lab / Microbiology Data Result Diagrams: 10/30/21 05:48 10/31/21 05:15 Laboratory: Laboratory Results - last 24 hr 10/31/21 05:15: Sodium 140, Potassium 3.2 L, Chloride 112 H, Carbon Dioxide 24.0, Anion Gap 4 L, BUN 9, Creatinine 0.54 L, Estim Creat Clear Calc 148.33, Est GFR (MDRD) Af Amer 198, Est GFR (MDRD) Non-Af 164, BUN/Creatinine Ratio 16.6, Glucose 127 H, Calcium 7.8 L, Total Bilirubin 1.10 H, AST 73 H, ALT 145 H, Alkaline Phosphatase 361 H, Total Protein 5.7 L, Albumin 2.2 L, Globulin 3.5, Albumin/Globulin Ratio 0.6 L Microbiology: Microbiology 10/29/21 09:40 Nasal Secretion SARS-CoV-2 Antigen (Rapid) - Final Radiography Diagnostic Testing: Radiology Impression ERCP X-Ray 10/30/21 10:45 IMPRESSION: Please refer to operative report for details. Electronically Signed: Tre Mendes MD at 14:03 EDT , D/C Instructions Discharge Diet: No restrictions Call your doctor if you observe: Fever of 101 or Higher and - (worsening abdominal pain) Meaningful Use Info Meaningful Use Diagnoses (Choose all that apply): None applicable Discharge Plan Admission Admit Date/Time: 10/29/21 14:33 Primary Reason for Your Visit: choledocholithiasis. cholangitis Attending Provider: Ender Andrews Primary Care Provider: Alexey Suárez Consulting Providers: Yasmani Carvalho ; Alexey Beckman Discharge Orders/Prescriptions Prescriptions: New ciprofloxacin HCl 500 mg tablet 500 mg PO BID Qty: 22 0RF metronidazole 500 mg tablet 500 mg PO Q8H Qty: 33 0RF Continued Repatha Syringe 140 mg/mL syringe 140 mg SC Q2W ezetimibe [Zetia] 10 mg tablet 10 mg PO DAILY Ultra CoQ10 75 mg capsule 75 mg PO DAILY aspirin 81 MG tablet,chewable 81 mg PO DAILY@0800 metoprolol tartrate 25 MG tablet 50 mg PO QHS pravastatin 20 MG tablet 40 mg PO QHS ergocalciferol (vitamin D2) 1,250 mcg (50,000 unit) capsule 5,000 unit PO DAILY Label Comments: TAKE 1 CAPSULE every week metoprolol tartrate 75 MG tablet 75 mg PO BREAKFAST omeprazole 20 mg Capsule,Delayed Release(Dr/Ec) 20 mg PO DAILY acetaminophen 650 mg Tablet 1,300 mg PO BID Referrals / Follow Up: Alexey Suárez MD [Primary Care Provider] - Within 2 Weeks Yasmani Carvalho DO [Med Staff - Active Staff] - Within 1 Month [facility],Judy Farr [NON-STAFF] - Disposition Disposition (needs filled in before D/C Order can be placed): Home, Self Care Charges/Coding Visit Charges Inpatient E&M: 93761 Disch Hosp
[2021-10-31 10:16] VITALS: BP 146/82; PULSE 89; RESP 18; TEMP 36.6; O2SAT 100
== END 2021-10-31 10:46 | disposition home or self-care (01) ==
LOC: ED 07:26 → MS3 07:47
PROVIDERS: Anesthesiology; Internal Medicine Gastroenterology; Admitting Provider Internal Medicine; Emergency Provider Emergency Medicine; PCP Family Medicine
PROC: (CPT 43260; principal; 2021-10-29 11:15)
PROC: 0FC98ZZ Extirpation of Matter from Common Bile Duct, Via Natural or Artificial Opening Endoscopic (ICD-10-PCS; CPT 43260; principal; 2021-10-30 10:10)
DX: K80.33 Calculus of bile duct with acute cholangitis with obstruction (principal); K26.9 Duodenal ulcer, unspecified as acute or chronic, without hemorrhage or perforation; E78.00 Pure hypercholesterolemia, unspecified; I25.10 Atherosclerotic heart disease of native coronary artery without angina pectoris; I10 Essential (primary) hypertension; E87.6 Hypokalemia; I25.2 Old myocardial infarction; Z95.1 Presence of aortocoronary bypass graft; Z95.5 Presence of coronary angioplasty implant and graft; Z90.49 Acquired absence of other specified parts of digestive tract; Z79.82 Long term (current) use of aspirin; Z79.899 Other long term (current) drug therapy; Z87.891 Personal history of nicotine dependence; Z28.310 Unvaccinated for COVID-19; Z28.9 Immunization not carried out for unspecified reason
CPT/HCPCS: 36415; 74177; 74328; 76000; 80048; 80053; 83690; 85025; 87426; 88305; 93005; 97802; 99284; J2185; J7030; J7120; Q9967; A4216; C1726; C1769; J2405

== ENCOUNTER → 2021-11-07 | Outpatient (CLI) | payer MEDICAID, SELFPAY ==
[2021-11-07 06:58] LABS: Absolute Lymphocyte Count 2.87 X10^3/uL (0.83-4.51); Absolute Neutrophil Count 3.1 X10^3/uL (2.0-7.7); Basophil# 0.05 X10^3/uL; Basophil% 0.6 % (0-1); Eosinophil# 0.37 X10^3/uL; Eosinophils% 4.4 % (0-5); Hematocrit 36.5 % (40-54); Hemoglobin 11.8 g/dL (13.0-16.5); Lymphocyte # 2.87 X10^3/ul (0.83-4.51); Lymphocyte % 34.5 % (19-41); Mean Corp Hgb Conc 32.3 g/dL (32-36); Mean Corpuscular Hgb 28.6 pg (27.0-32.0); Mean Corpuscular Volume 88.4 fL (80-94); Mean Platelet Vol. 10.6 fl (6.2-12.0); Monocyte# 1.89 X10^3/uL; Monocyte% 22.7 % (0-10); NRBC Flagged by Analyzer 0 % (0-5); Neutrophil # 3.12 X10^3/uL (2.7-7.7); Neutrophil % 37.4 % (47-70); POSITIVE DIFFERENTIAL YES; Platelet Count 295 K/mm3 (150-450); RBC Distribution Width SD 48.3 fl (35.1-43.9); Red Blood Count 4.13 M/mm3 (4.6-6.2); White Blood Count 8.3 K/mm3 (4.4-11.0)
[2021-11-07 07:11] LABS: Differential Indicated SCAN CRITERIA MET; Erythrocyte Sedimentation Rate 57 mm/hr (0-20)
[2021-11-07 07:26] LABS: ALB/GLOB Ratio 0.8 RATIO (0.9-2.4); AST(SGOT) 27 U/L (15-37); Alanine Aminotransfer ALT/SGPT 62 U/L (16-61); Albumin, Serum 3.1 g/dL (3.2-5.0); Alkaline Phosphatase 244 U/L (45-117); Anion Gap 5 (5-15); BUN 15 mg/dL (7-18); BUN/Creat Ratio 21.8 RATIO (10-20); Calcium,Total 8.5 mg/dL (8.5-10.1); Chloride 105 mmol/L (98-107); Creatinine, Serum 0.69 mg/dL (0.70-1.30); EST Glomerular Filtration Rate 124 mL/min (>60); Est Glom Filt Rate - Afr Amer 150 mL/min (>60); Globulin 4.1 g/dL (2.2-4.2); Glucose 92 mg/dL (74-106); Potassium 3.9 mmol/L (3.5-5.1); Protein, Total 7.2 g/dL (6.4-8.2); Sodium Level 138 mmol/L (136-145)
[2021-11-07 07:56] LABS: Platelet Estimate ADEQUATE (ADEQ)
[2021-11-07 07:57] LABS: Red Cell Morphology NORM C+C NORMAL (NORM C&C)
[2021-11-07 12:59] LABS: Pathologist Review Reviewed
== END | disposition home or self-care (01) ==
LOC: LAB 06:03
PROVIDERS: PCP Family Medicine; Referring Provider Internal Medicine Gastroenterology; Visit Provider Internal Medicine Gastroenterology
DX: K80.51 Calculus of bile duct without cholangitis or cholecystitis with obstruction (principal)
CPT/HCPCS: 36415; 80053; 85025; 85652; 86140

== ENCOUNTER 2022-02-10 17:33 | Emergency (ER) | payer MEDICAID, SELFPAY ==
[2022-02-10 17:35] VITALS: BP 134/78; PULSE 88; RESP 16; TEMP 36.9; O2SAT 98; BMI 27.2
--- NOTE | 2022-02-10 18:05 | EX.ED.GENINJ ---
HPI History of Present Illness Chief Complaint: Bite Informant: patient Onset/Context/Timing Onset: Today Quality of Pain: Dull Location: Left mid abdomen Worsened by: Nothing Relieved by: Nothing Associated Symptoms Associated Symptoms: Negative for Parasthesias, Weakness, Loss of function, Inability to ambulate or Loss of consciousness Narrative Narrative: Patient presents with a tick bite to his mid abdomen that he noticed today. Patient states he had been outside working on a barn and thinks that is where he was bitten by the tick. Patient states he did not try to remove it himself. Patient denies any fevers or chills. Patient was to some mild redness around the tick. Patient denies any discharge or drainage. Patient denies any nausea or vomiting. PFSH PFSH Medical History Chest pain Coronary artery disease GERD (gastroesophageal reflux disease) Heart disease High cholesterol History of heart attack History of stress test HTN (hypertension) Kidney stones Myocardial infarct Smoker Home Medications aspirin 81 mg chewable tablet 81 mg PO DAILY@0800 blood thinner 01/02/16 [History Last Taken 07/19/21] metoprolol tartrate 25 mg tablet 50 mg PO QHS bp 01/02/16 [History Last Taken 07/18/21] pravastatin 20 mg tablet 40 mg PO QHS Check with primary doctor 01/02/16 [History Last Taken 07/18/21] coenzyme Q10 75 mg capsule (Ultra CoQ10) 75 mg PO DAILY supplement 09/10/19 [History Last Taken 07/19/21] evolocumab 140 mg/mL subcutaneous syringe (Repatha Syringe) 140 mg subcut Q2W cholesterol 09/10/19 [History Last Taken 1 Week Ago ~10/22/21] ezetimibe 10 mg tablet (Zetia) 10 mg PO DAILY cholesterol 09/10/19 [History Last Taken 07/19/21] ergocalciferol (vitamin D2) 1,250 mcg (50,000 unit) capsule 5,000 unit PO DAILY supplement 12/09/19 [History Last Taken 07/19/21] metoprolol tartrate 75 mg tablet 75 mg PO BREAKFAST bp 12/09/19 [History Last Taken 07/19/21] omeprazole 20 mg capsule,delayed release 20 mg PO DAILY gerd 08/14/20 [History Last Taken 07/19/21] acetaminophen 650 mg tablet 1,300 mg PO BID pain 07/19/21 [History Last Taken 07/19/21] Allergy/AdvReac Type Severity Reaction Status Date / Time ciprofloxacin [From Cipro] Allergy Swelling Verified 02/10/22 17:34 peanut Allergy Anaphylaxis Verified 02/10/22 17:33 Surgical History H/O shoulder replacement History of quadruple bypass Hx of CABG Hx of heart artery stent S/P laparoscopic cholecystectomy Social History Smoking Status: Former smoker ROS ROS ED Constitutional Constitutional ED: Denies chills or fever(s) Eyes Eyes: Denies blurry vision or change in vision ENT ENT ED: Denies rhinorrhea or sore throat Cardiovascular Cardiovascular: Denies chest pain or palpitations Respiratory/Chest Respiratory/Chest: Denies cough or dyspnea Gastrointestinal Gastrointestinal: Denies nausea or vomiting Genitourinary Genitourinary ED: Denies dysuria or hematuria Musculoskeletal Musculoskeletal: Denies back pain or neck pain Integumentary Denies abscess or rash Neurologic Neurologic: Denies headache(s) or weakness Allergic/Immunologic Allergic/Immunologic ED: Denies mouth swelling or urticaria EXAM Physical Exam Const Vital Signs: 02/10/22 17:35 Temperature 98.4 F Temperature Source Temporal Pulse Rate 88 Respiratory Rate 16 Blood Pressure 134/78 H Blood Pressure Mean 96 Pulse Ox 98 Oxygen Delivery Method Room Air Positive well nourished and well developed General Appearance ED: well developed and NAD Neck full ROM Extremity normal to inspection Neuro oriented x3, CN's II-XII intact bilaterally, moves all extremities, no focal motor deficits and no sensory deficits noted Sensorium / Orientation: alert Motor Exam: strength 5/5 throughout Skin Skin Narrative: There is a tic in the left mid to lower abdomen. There is some mild erythema around the tick. There is no discharge or drainage. There is no tenderness to palpation. Abdomen is otherwise soft and nontender. MDM MDM MDM Narrative Medical decision making narrative: Pressure was applied to the tick's head. This was removed without difficulty. There are no other elements of the tick noted in the wound. Bacitracin dressing was applied. Patient was instructed to follow-up with his primary care physician in 5 to 7 days. Patient was instructed to keep the wound clean and dry. Patient understood and was agreeable with the plan. All questions were answered. Discharge Plan Triage Chief Complaint: Bite ED Provider: Ender Palomino Dx/Rx/DC Orders Clinical Impression: Tick bite of abdominal wall Instructions: ED Insect Bite Prescriptions: No Action Repatha Syringe 140 mg/mL syringe 140 mg SC Q2W ezetimibe [Zetia] 10 mg tablet 10 mg PO DAILY Ultra CoQ10 75 mg capsule 75 mg PO DAILY aspirin 81 MG tablet,chewable 81 mg PO DAILY@0800 metoprolol tartrate 25 MG tablet 50 mg PO QHS pravastatin 20 MG tablet 40 mg PO QHS ergocalciferol (vitamin D2) 1,250 mcg (50,000 unit) capsule 5,000 unit PO DAILY Label Comments: TAKE 1 CAPSULE every week metoprolol tartrate 75 MG tablet 75 mg PO BREAKFAST omeprazole 20 mg Capsule,Delayed Release(Dr/Ec) 20 mg PO DAILY acetaminophen 650 mg Tablet 1,300 mg PO BID Primary Care Provider: Alexey Suárez Referrals: Alexey Suárez MD [Primary Care Provider] - 5-7 Days Disposition Disposition: Home, Self Care
== END 2022-02-10 18:25 | disposition home or self-care (01) ==
PROVIDERS: Emergency Provider Emergency Medicine; PCP Family Medicine; Visit Provider Emergency Medicine
DX: S30.861A Insect bite (nonvenomous) of abdominal wall, initial encounter (principal); I25.10 Atherosclerotic heart disease of native coronary artery without angina pectoris; E78.00 Pure hypercholesterolemia, unspecified; I10 Essential (primary) hypertension; Z87.891 Personal history of nicotine dependence; I25.2 Old myocardial infarction; W57.XXXA Bitten or stung by nonvenomous insect and other nonvenomous arthropods, initial encounter
CPT/HCPCS: 99282

== ENCOUNTER 2022-08-01 10:41 | Day surgery (SDC) | payer MEDICAID, SELFPAY ==
[2022-08-01 11:04] VITALS: BP 150/95; PULSE 57; RESP 18; TEMP 36.4; O2SAT 100; BMI 29.0
[2022-08-01] MEDS: Lactated Ringers 1,000 ML 15 ML IV (11:06)
--- NOTE | 2022-08-01 11:06 | HP.PCM_ITS ---
History and Physical Date of Admission: 08/01/22 ?61 M who presents to the office today for follow up. Bigg established with this clinic during [facility] Hospitalization. He presented to [facility] ED 10.29.21 with abdominal pain. He has been having postprandial abdominal/epigastric discomfort for many months; underwent cholecystectomy 07.21.[address] Castillo. Began experiencing similar pains with increased severity causing him to present to ED. Biochemical workup and imaging performed finding choledocholithiasis with elevating LFT and he was admitted for management. Gastroenterology consulted 10.29.21 with ERCP performed 10.30.21 to replace stent and clear obstruction. He was discharged 10.31.21. ? Biochemical workup 10.29.2021 AST H420/ALT H358/ Alk phos H438? LFT 10.31.21 AST H73/ALT H145/alk phos H361. LFT 11.07.21? ? CT abd/pel 10.29.21 with distal CBD stone with intra/extrahepatic biliary dilation; multiple small gallbladder calculi (s/p cholecystectomy) ? ERCP with spyglass performed 10.30.21 noting purulent matter in biliary trach; large amount of trichobezoar in stomach; friable duodenal mucosa; multiple nonobstructing/bleeding duodenal ulcer, stress induced etiology; entire main bile duct dilated with stone causing obstruction; choledocholithiasis found and removed by biliary sphincterotomy and balloon extraction; biliary tree swept; one stent exchanged in biliary tree; CBD successfully dilated; lithotripsy successful. Pathology finding fibrinopurulent material. ? Biochemical workup 11.07.21 CBC, CBC ESR H57; CRP H15.60; albumin L3.1 (chronic); LFT AST 27/ALT H62/ alk phos H244 ? Plan LV 11.27.21: Choledocholithiasis ? removal of stone from large type I choledochal cyst with spyglass performed. Needs repeat ERCP. Choledochocyst ? repeat CA 19-9 and monitor imaging. Pt reports feeling okay since last visit. Says he gets a mid abdominal pressure he described as a imploding feeling. Unsure of trigger or cause. Happens a few times a day over the course of a week sometimes. No nausea or vomiting. ? ROS Const Constitutional: Positive for weight change; No fatigue ENT ENT: No difficulty swallowing Gastro GI: No abdominal pain, belching, bloating, change in bowel habits, change in stool character, coffee ground emesis, constipation, cramping, diarrhea, heartburn, difficulty swallowing, feeling full early, excessive flatus, incontinent of stools, Vomiting blood/hematemesis, Blood in stool, loose stools, Black,tarry stools, nausea/dyspepsia, pain with swallowing, vomiting or other Musc Musculoskeletal: Positive for Arthritis; No joint pain Skin Skin: No yellowing of the eye or itchy eyes Psych Psychiatric: No anxiety and No depression Endo Endocrine: Positive for weight change; No fatigue Aller/Imm Allergy/Immunologic: No itchy eyes Parish/Lymp Hematologic/Lymphatic: No easy bleeding or easy bruising Exam Const General: cooperative and comfortable Nutritional Appearance: average body habitus and well nourished HENMT Head: normal to inspection Ears: hearing grossly normal bilaterally Nose: external nose normal Face and sinus: normal facial exam Mouth: oral mucosae normal Throat: posterior oropharynx normal Eyes General: appearance normal, both eyes and all related structures Neck Neck: normal visual inspection Chest Chest palpation & inspection: normal inspection of the chest and normal palpation of entire chest wall Resp Effort & Inspection: normal respiratory effort Auscultation: Bilateral: Clear to Auscultation Cardio Palpation: normal PMI Rate: regular rate Rhythm: regular rhythm GI Inspection: normal to inspection Auscultation: normal bowel sounds Percussion: normal to percussion Palpation: no hepatosplenomegaly Skin General: no rashes or lesions noted Neuro General: patient alert Extrem General: normal to inspection Psych Affect: normal affect Quality Reporting Tobacco Screening ([facility] 138) Smoking Status: Former smoker Assessment and Plan Assessment and Plan (1) Choledocholithiasis: ?Status:?Acute ?Plan: Choledocholithiasis with obstruction: PLAN: Patient has acute choledocholithiasis on which is causing his pain and also increasing liver function test and liver enzymes.? He should undergo ERCP with stent removal or exchange? t. I have examined the patient and the H&P has been reviewed. There are no clinical changes since date of exam.
--- NOTE | 2022-08-01 12:13 | RAD_ITS ---
STUDY: ERCP. REASON FOR EXAM: Male, 61 years old. Right upper quadrant pain. FLUOROSCOPY TIME (if supplied): ( 176 seconds. ) minutes/seconds. 15 spot images. 42.04 mGy TECHNIQUE: An ERCP was performed by the plastic production machine setter. Imaging was provided. COMPARISON: Comparison is made with prior study October 30, 2021. FINDINGS: The indwelling stent has been removed. There is evidence of a dilatation of the intrahepatic biliary duct as well as the common bile duct. Filling defects are seen. Balloon catheter was utilized for removal. RAD/ERCP Biliary Only IMPRESSION: ERCP with removal of the retained choledocholithiasis. Electronically Signed: Mc Ashton MD at 15:04 EDT ,
--- NOTE | 2022-08-01 13:04 | OP.CCLET_ITS ---
08/01/2022 Alexey Suárez [address] [place] [address] Re : ERCP procedure for Bigg Ramon Dear Dr. Suárez This procedure was performed on Monday, August 01, 2022. My impressions and recommendations are as follows: Impressions : - The entire main bile duct was dilated, with a stone causing an obstruction. - The patient has had a cholecystectomy. - Choledocholithiasis was found. Complete removal was accomplished by biliary sphincterotomy and balloon extraction. - A biliary sphincterotomy was performed. - The biliary tree was swept. - The hepatic duct bifurcation was successfully dilated. - One stent was removed from the biliary tree. Recommendations : My findings are described in the full procedure note, which is enclosed. If I can be of further assistance, please feel free to contact me at . Sincerely, Yasmani Carvalho, 08/01/2022 1:04:25 PM This report has been signed electronically.
--- NOTE | 2022-08-01 13:04 | OP.ERCP_ITS ---
Patient Name: Bigg Ramon Procedure Date: 08/01/2022 12:06 PM Date of : 1960 Age: 61 Procedure: ERCP Indications: Bile duct stone(s), Stent removal Providers: Yasmani Carvalho DO Medicines: See the Anesthesia note for documentation of the administered medications Patient Profile: This is a 61 year old male. Refer to note in patient chart for documentation of history and physical. Patient has symptoms of acute right upper quadrant abdominal pain and acute jaundice. He is status post ERCP for biliary evaluation, ERCP for stent and ERCP for stone removal within the past three months. He is status post laparoscopic cholecystectomy within the past three months. Complications: No immediate complications. Procedure: Pre-Anesthesia Assessment: - Prior to the procedure, a History and Physical was performed, and patient medications and allergies were reviewed. The patient is competent. The risks and benefits of the procedure and the sedation options and risks were discussed with the patient. All questions were answered and informed consent was obtained. Patient identification and proposed procedure were verified by the physician. Mental Status Examination: normal. Prophylactic Antibiotics: The patient does not require prophylactic antibiotics. Prior Anticoagulants: The patient has taken no previous anticoagulant or antiplatelet agents. ASA Grade Assessment: II - A patient with mild systemic disease. After reviewing the risks and benefits, the patient was deemed in satisfactory condition to undergo the procedure. The anesthesia plan was to use monitored anesthesia care (MAC). Immediately prior to administration of medications, the patient was re-assessed for adequacy to receive sedatives. The heart rate, respiratory rate, oxygen saturations, blood pressure, adequacy of pulmonary ventilation, and response to care were monitored throughout the procedure. The physical status of the patient was re-assessed after the procedure. After obtaining informed consent, the scope was passed under direct vision. Throughout the procedure, the patient's blood pressure, pulse, and oxygen saturations were monitored continuously. The Duodenoscope was introduced through the mouth, and advanced to the duodenum and used to inject contrast into the bile duct. The ERCP was accomplished without difficulty. The patient tolerated the procedure well. Scope In: 12:36:23 PM Scope Out: 12:49:30 PM Total Procedure Duration Time 0 hours 13 minutes 7 seconds Findings: The museum technician film was normal. The esophagus was successfully intubated under direct vision. The scope was advanced to a normal major papilla in the descending duodenum without detailed examination of the pharynx, larynx and associated structures, and upper GI tract. The upper GI tract was grossly normal. A straight Roadrunner wire was passed into the biliary tree. The short-nosed traction sphincterotome was passed over the guidewire and the bile duct was then deeply cannulated. Contrast was injected. I personally interpreted the bile duct images. There was brisk flow of contrast through the ducts. Image quality was excellent. Contrast extended to the entire biliary tree. Opacification of the entire biliary tree except for the gallbladder was successful. The maximum diameter of the ducts was 10 mm. The lower third of the main bile duct contained two stones, the largest of which was 4 mm in diameter. The main bile duct was diffusely dilated, with a stone causing an obstruction. The largest diameter was 10 mm. A cholecystectomy had been performed. A 5 mm biliary sphincterotomy was made with a monofilament traction (standard) sphincterotome using ERBE electrocautery. The sphincterotomy oozed blood. To discover objects, the biliary tree was swept with a 12 mm balloon starting at the bifurcation. Sludge was swept from the duct. All stones were removed. Dilation of the hepatic duct bifurcation with an 8-9-10 mm balloon (to a maximum balloon size of 10 mm) dilator was successful. One stent was removed from the biliary tree using a snare. The stent was found to be occluded via the water column test. Impression: - The entire main bile duct was dilated, with a stone causing an obstruction. - The patient has had a cholecystectomy. - Choledocholithiasis was found. Complete removal was accomplished by biliary sphincterotomy and balloon extraction. - A biliary sphincterotomy was performed. - The biliary tree was swept. - The hepatic duct bifurcation was successfully dilated. - One stent was removed from the biliary tree. Procedure Code(s): --- Professional --- 20117, 59, Endoscopic retrograde cholangiopancreatography (ERCP); with trans-endoscopic balloon dilation of biliary/pancreatic duct(s) or of ampulla (sphincteroplasty), including sphincterotomy, when performed, each duct 23839, Endoscopic retrograde cholangiopancreatography (ERCP); with removal of foreign body(s) or stent(s) from biliary/pancreatic duct(s) 65188, Endoscopic retrograde cholangiopancreatography (ERCP); with removal of calculi/debris from biliary/pancreatic duct(s) 98094, 59, Endoscopic retrograde cholangiopancreatography (ERCP); with sphincterotomy/papillotomy 04037, 26, Endoscopic catheterization of the biliary ductal system, radiological supervision and interpretation CPT copyright 2017 [employer]. All rights reserved. The codes documented in this report are preliminary and upon anesthesia tech review may be revised to meet current compliance requirements. Yasmani Carvalho DO 08/01/2022 1:04:25 PM This report has been signed electronically. Number of Addenda: 0 Note Initiated On: 08/01/2022 12:06 PM
[2022-08-01 13:08] VITALS: BP 126/78; BP 150/95; PULSE 72; RESP 18; TEMP 36.1; O2SAT 96
[2022-08-01 13:15] VITALS: BP 127/89; BP 150/95; PULSE 72; RESP 18; O2SAT 95
[2022-08-01 13:30] VITALS: BP 130/87; BP 150/95; PULSE 67; RESP 18; TEMP 36.1; O2SAT 99
[2022-08-01 13:50] VITALS: BP 150/95
== END 2022-08-01 14:01 | disposition home or self-care (01) ==
LOC: EN 10:42 → AC 10:43
PROVIDERS: PCP Family Medicine; Referring Provider Family Medicine; Visit Provider Internal Medicine Gastroenterology
PROC: (CPT 43260; principal; 2022-08-01 11:40)
DX: K80.51 Calculus of bile duct without cholangitis or cholecystitis with obstruction (principal); K83.8 Other specified diseases of biliary tract; Z87.891 Personal history of nicotine dependence; Z90.49 Acquired absence of other specified parts of digestive tract
CPT/HCPCS: 43264; 43262; 43275; 43277; 74328; 76000; J7120; J2405

== ENCOUNTER 2024-05-17 05:32 | Emergency (ER) | payer MEDICAID, SELFPAY ==
[2024-05-17 05:33] VITALS: BP 167/97; PULSE 69; RESP 18; TEMP 36.8; O2SAT 99; BMI 30.8
--- NOTE | 2024-05-17 06:33 | EDS_ITS ---
HPI History of Present Illness Chief Complaint: Constipation Informant: patient Narrative Narrative: Patient is a 63-year-old male with past medical history of hypertension and coronary artery disease and GERD. He recently underwent surgery for a right rotator cuff injury. He states that he has been taking Percocet/oxycodone secondary to this. He reports he typically has a bowel movement daily and now has not had a bowel movement for the past 3 days. He states has been trying [id number] medication without symptom resolution. He reports that he feels like he has to go but is just unable to get it out. With concern he may need a disimpaction or enema he presents for evaluation [facility] Medical History Wears partial dentures Arthritis Low iron Excessive bleeding Former smoker Cardiology follow-up encounter History of stress test High cholesterol Kidney stones GERD (gastroesophageal reflux disease) Smoker Myocardial infarct Coronary artery disease History of heart attack HTN (hypertension) Heart disease Home Medications ?Medication ?Instructions ?Recorded ?Last Taken ?Type aspirin 81 mg chewable tablet 81 mg PO DAILY@0800 bloo d thinner 01/02/16 07/19/21 History metoprolol tartrate 25 mg tablet 50 mg PO QHS bp 01/0107/18/21 History pravastatin 20 mg tablet 40 mg PO QHS Check with prim rina 01/02/16 07/18/21 History doctor coenzyme Q10 75 mg capsule (Ultra 200 mg PO DAILY supp lement 09/10/19 07/19/21 History CoQ10) evolocumab 140 mg/mL subcutaneous 140 mg subcut Q2W ch olesterol 09/10/19 1 Week Ago History syringe (Repatha Syringe) ~10/22/21 ezetimibe 10 mg tablet (Zetia) 10 mg PO DAILY choleste rol 09/10/19 07/19/21 History metoprolol tartrate 75 mg tablet 75 mg PO BREAKFAST bp 12/09/19 08/01/22 05:30 History omeprazole 20 mg capsule,delayed 20 mg PO DAILY gerd 0 08/14/20 08/01/22 05:30 History release acetaminophen 650 mg tablet 1,300 mg PO BID pain 07/1907/19/21 History clopidogrel 75 mg tablet 75 mg PO DAILY 07/27/2207/02 History Allergy/AdvReac Type Severity Reaction Status Date / Time ciprofloxacin (From Cipro) Allergy Swelling Verified 05/17/24 05:38 peanut Allergy Anaphylaxis Verified 05/17/24 05:38 Surgical History History of ERCP S/P laparoscopic cholecystectomy H/O shoulder replacement Hx of CABG History of quadruple bypass Hx of heart artery stent Social History Smoking Status: Former smoker ROS ROS ED Constitutional Constitutional ED: Denies chills or fever(s) ENT ENT ED: Denies sore throat Cardiovascular Cardiovascular: Denies chest pain Respiratory/Chest Respiratory/Chest: Denies cough or dyspnea Gastrointestinal Gastrointestinal: Reports constipation; Denies abdominal pain, diarrhea, melena, nausea or vomiting Genitourinary Genitourinary ED: Denies dysuria Musculoskeletal Musculoskeletal: Reports other Details: Positive right shoulder pain status post surgery Integumentary Denies rash Neurologic Neurologic: Denies headache(s) Hematologic/Lymphatic Hematologic/Lymphatic: Denies easy bleeding or easy bruising EXAM Physical Exam Const Vital Signs: 05/17/24 05:33 05/17/24 07:22 Temperature 98.2 F 97.4 F L Temperature Source Oral Pulse Rate 69 81 Respiratory Rate 18 15 Blood Pressure 167/97 H 139/67 H Blood Pressure Mean 120 91 Pulse Ox 99 98 Oxygen Delivery Method Room Air Positive well nourished and well developed General Appearance ED: well developed; Negative for pallor HEENT HEENT Narrative: Normocephalic atraumatic Eyes PERRL and EOMs intact bilaterally General Eye ED: Negative for scleral icterus Neck supple Resp normal respiratory effort and clear to auscultation bilaterally Cardio regular rate and regular rhythm GI non-tender, non-distended and no masses GI Narrative: Abdomen is soft nontender and nondistended with hypoactive bowel sound. No voluntary guarding or rigidity. No pulsatile mass or fluid wave. No increased tympany noted. Auscultation: hypoactive bowel sounds Palpation: soft Narrative: Patient has nonbleeding nonthrombosed external hemorrhoids. Rectal exam displays good tone with hard stool within the rectal vault consistent with co nstipation Extremity Extremity Narrative: Patient has postoperative changes to the right shoulder but otherwise extremities are normal Neuro oriented x3, CN's II-XII intact bilaterally and no sensory deficits noted Sensorium / Orientation: alert Motor Exam: strength 5/5 throughout Psych mental status grossly normal Skin no rashes or lesions noted Skin Narrative: Postoperative changes to the right shoulder without secondary findings to suggest infection General Skin Exam: Negative for jaundice or pallor MDM MDM MDM Narrative Medical decision making narrative: Patient arrived to the ER hypertensive but has a past medical history of this. History and exam is most consistent with constipation secondary to anesthesia and opioid use. Based on his past abdominal surgical history there is concern for potential obstruction or with his recent anesthesia even an ileus. However his exam shows a large amount of stool in the rectal vault he does not have abdominal distention or vomiting and therefore I feel this is truly constipation secondary to opioid use and there is no need for imaging or laboratory studies. Manual disimpaction was employed in a moderate amount of stool was removed. He was then given a Fleet enema and did have another bowel movement while in the ER. Therefore with improvement of his constipation and exam not showing changes concerning for ileus or obstruction he is otherwise safe for discharge History & Record Review Discussion w/independent historian: Patient Discharge Plan Triage Chief Complaint: Constipation ED Provider: Juan Manuel Bryant Dx/Rx/DC Orders Clinical Impression: Acute constipation, Hypertension, CAD (coronary artery disease) Instructions: Treating Constipation, ED Constipation (Adult) Prescriptions: No Action Repatha Syringe 140 mg/mL syringe 140 mg SC Q2W ezetimibe [Zetia] 10 mg tablet 10 mg PO DAILY Ultra CoQ10 75 mg capsule 200 mg PO DAILY aspirin 81 MG tablet,chewable 81 mg PO DAILY@0800 metoprolol tartrate 25 MG tablet 50 mg PO QHS pravastatin 20 MG tablet 40 mg PO QHS metoprolol tartrate 75 MG tablet 75 mg PO BREAKFAST omeprazole 20 mg Capsule,Delayed Release(Dr/Ec) 20 mg PO DAILY acetaminophen 650 mg Tablet 1,300 mg PO BID clopidogrel 75 mg tablet 75 mg PO DAILY Patient Comments: Take 1 tablet by mouth once daily. Primary Care Provider: Alexey Suárez Referrals: Alexey Suárez MD [Primary Care Provider] - Activity Restrictions/Additional Instructions: Please go home and finish the bottle of magnesium citrate to help stimulate bowel movements. Tried to stop or decrease the amount of Percocet you are taking from your surgery as this will cause persistent constipation. Take 1 capful of MiraLAX twice a day to help also resolve the constipation and return to the ER should you have any further concerns Print Language: Guatemalan Disposition Disposition: Home, Self Care Discharge Date/Time: 05/17/24 07:23
[2024-05-17] MEDS: Fleet Enema 133 ML RC (06:46)
[2024-05-17 07:22] VITALS: BP 139/67; PULSE 81; RESP 15; TEMP 36.3; O2SAT 98
== END 2024-05-17 07:23 | disposition home or self-care (01) ==
PROVIDERS: Emergency Provider Emergency Medicine; PCP Family Medicine; Visit Provider Emergency Medicine
DX: K59.00 Constipation, unspecified (principal); I10 Essential (primary) hypertension; E78.00 Pure hypercholesterolemia, unspecified; I25.10 Atherosclerotic heart disease of native coronary artery without angina pectoris; Z87.891 Personal history of nicotine dependence; I25.2 Old myocardial infarction; Z79.82 Long term (current) use of aspirin; Z79.899 Other long term (current) drug therapy; K21.9 Gastro-esophageal reflux disease without esophagitis; Z79.02 Long term (current) use of antithrombotics/antiplatelets; Z90.49 Acquired absence of other specified parts of digestive tract; Z96.619 Presence of unspecified artificial shoulder joint; Z95.1 Presence of aortocoronary bypass graft
CPT/HCPCS: 99282